=== PATIENT | male | born 1950 | race Caucasian/White ===

== ENCOUNTER 2020-12-03 08:25 | Day surgery (SDC) | payer MEDICARE, SELFPAY ==
[2020-11-27 20:29] VITALS: BMI 35.2
--- NOTE | 2020-12-02 09:45 | P.CONAN_ITS ---
Documented by User: Sugey Alvarenga 12/02/20 09:46 HPI - Anesthesia Eval Consult details Narrative: 70yo M for Colonoscopy [facility] Past Medical History Medical History (Updated 11/27/20 @ 20:34 by Chanelle Sierra RN) HTN (hypertension) Surgical History Surgical History (Updated 11/27/20 @ 20:34 by Chanelle Sierra RN) History of cataract surgery History of colonoscopy S/P repair of hydrocele Social History Social History Smoking Status: Never smoker Use of substances other than those prescribed or required for medical reasons: No Advance Directives: Yes Advance Directives Information Provided: Yes Advance Directives on File: No (will bring copy) Advance Directives Date on File: 11/15/17 Meds Allergies Allergy/AdvReac Type Severity Reaction Status Date / Time Pt states no known allergy to Allergy Unknown Uncoded 01/31/19 00:00 Home Medications Medication Instructions Recorded Confirmed Type aspirin 81 mg PO DAILY 11/27/20 11/27/20 History atenolol 50 mg PO DAILY 11/27/20 12/03/20 History cholecalciferol (vitamin D3) 25 mcg PO DAILY 11/27/20 11/27/20 History [Vitamin D3] furosemide 20 mg PO DAILY 11/27/20 11/27/20 History bklejyfcvarj-lgehbcol-ymfyhx 1 tab PO DAILY 11/27/20 11/27/20 History [Centrum Silver] omega-3 fatty acids [Fish Oil] 2,000 mg PO DAILY 11/27/20 11/27/20 History Exam Exam Date and Time: December 02, 2020 0945 Height,Weight and Vital Signs: Height 5 ft 10 in Weight 111.13 kg Assessment and Plan Assessment Anesthesia Assessment: Chart Reviewed Documented by User: Anibal Bain MD 12/03/20 09:05 [facility] Past Medical History Medical History (Updated 11/27/20 @ 20:34 by Chanelle Sierra RN) HTN (hypertension) Surgical History Surgical History (Updated 11/27/20 @ 20:34 by Chanelle Sierra RN) History of cataract surgery History of colonoscopy S/P repair of hydrocele Social History Social History Smoking Status: Never smoker Use of substances other than those prescribed or required for medical reasons: No Advance Directives: Yes Advance Directives Information Provided: Yes Advance Directives on File: No (will bring copy) Advance Directives Date on File: 11/15/17 Meds Allergies Allergy/AdvReac Type Severity Reaction Status Date / Time Pt states no known allergy to Allergy Unknown Uncoded 01/31/19 00:00 Home Medications Medication Instructions Recorded Confirmed Type aspirin 81 mg PO DAILY 11/27/20 11/27/20 History atenolol 50 mg PO DAILY 11/27/20 12/03/20 History cholecalciferol (vitamin D3) 25 mcg PO DAILY 11/27/20 11/27/20 History [Vitamin D3] furosemide 20 mg PO DAILY 11/27/20 11/27/20 History ldyckifhvefn-dslgwgzg-ybqwxe 1 tab PO DAILY 11/27/20 11/27/20 History [Centrum Silver] omega-3 fatty acids [Fish Oil] 2,000 mg PO DAILY 11/27/20 11/27/20 History Exam Airway Mallampati Class: II TM Dist: >3cm Neck ROM: Full Loose/Missing/Broken Teeth: Yes (Few missing molars, crowns, none loose) Heart: RRR Lungs: NL Other: AO Assessment and Plan Assessment Anesthesia Assessment: Anesthesia Plan Discussed and Chart Reviewed Final Anesthetic Review NPO: Yes ASA Class: II Final Preanesthetic Review: No Changes in Pt Med Stat, Meds/Allgs Chart Reviewed, Consent Obtained/Reviewed and Anes Risks/Benef Reviewed Patient Risk: Low Procedure Risk: Low Anesthetic Plan Anesthetic Plan: MAC: Disposition: Standard PACU
[2020-12-03 08:49] VITALS: BP 167/84; PULSE 66; RESP 18; TEMP 36.1; O2SAT 97
[2020-12-03] MEDS: Lactated Ringers 1,000 ML 100 ML IVCONT (08:57)
[2020-12-03 10:20] VITALS: BP 99/45; PULSE 58; RESP 16; TEMP 36.6; O2SAT 99
--- NOTE | 2020-12-03 10:21 | PM.OP ---
Brief Operative Note Date of Service: 12/03/20 Pre-op diagnosis: Screening, History of polyps Post-op diagnosis: other (Colon polyp, Diverticulosis) Procedure: Colonoscopy to cecum and TI with biopsy and removal of polyp Surgeon: Toni Pena Anesthesia: MAC Estimated blood loss (mL): 3.0 Pathology: other (A. Cecal polyp) Condition: stable Disposition: PACU
[2020-12-03 10:35] VITALS: BP 131/64; PULSE 55; RESP 16; O2SAT 97
[2020-12-03 10:43] VITALS: BP 145/77; PULSE 67; RESP 18; TEMP 36.6; O2SAT 98
--- NOTE | 2020-12-03 11:02 | HO.POSTANES ---
Post Anesthesia Evaluation Post Anesthesia Evaluation Vital Signs: Vital Signs Temp Pulse Resp BP Pulse Ox 12/03/20 10:43 97.9 F 67 18 145/77 H 98 12/03/20 10:35 55 16 131/64 97 12/03/20 10:20 97.9 F 58 16 99/45 L 99 12/03/20 08:49 97 F 66 18 167/84 H 97 Anesthesia: General (tiva) Mental Status: Awake Pain Control: Satisfactory Nausea/Vomiting: None Hydration: Adequate Anesthesia-Related Issues: No Anes. Related Issues
--- NOTE | 2020-12-03 11:14 | OP_ITS ---
SURGEON: Toni Pena MD INDICATIONS: The patient presents for evaluation of colorectal cancer screening and prior history of tubular adenoma of the colon. Full consent has been obtained from him for this, including risks of bleeding and perforation. PREOPERATIVE DIAGNOSIS: POSTOPERATIVE DIAGNOSIS: PROCEDURE PERFORMED: Colonoscopy to cecum and terminal ileum with biopsy and removal of polyp. ESTIMATED BLOOD LOSS: COMPLICATIONS: ANESTHESIA: Medication used, monitored anesthesia care. ASSISTANTS: SPECIMENS: PREOPERATIVE DIAGNOSES: Colorectal cancer screening and personal history of tubular adenoma of the colon. POSTOPERATIVE DIAGNOSES: Colorectal cancer screening and personal history of tubular adenoma of the colon, small colon polyp, diverticulosis, and internal hemorrhoids. DESCRIPTION OF PROCEDURE: The patient was placed in the left lateral decubitus position. The digital rectal exam revealed no abnormalities. The Olympus video pediatric colonoscope was entered into the rectum and advanced easily to the cecum. Once in the cecum, I did identify normal-appearing cecal pouch other than a flat approximately 3 mm polyp, which was biopsied and completely removed with cold biopsy forceps. The remainder of the cecum including the appendiceal orifice was visualized and appeared normal. The terminal ileum was cannulated and appeared normal. The scope withdrawn back in the colon. The ileocecal valve appeared normal. The scope was slowly withdrawn assessing all mucosal surfaces carefully. Preparation was excellent. I did not visualize any other polyps, colitis, nor angiodysplasia. There was a mild amount of sigmoid diverticulosis. In the rectum, scope was retroflexed visualizing internal hemorrhoids, but no other pathology. The rectal mucosa appeared normal. The scope was straightened and withdrawn from the patient. He tolerated the procedure well and was returned to the recovery area in stable condition. IMPRESSION: 1. Small colon polyp, status post biopsy removal. 2. Diverticulosis. 3. Internal hemorrhoids. PLAN: The results of the biopsy will be checked. I would recommend a repeat colonoscopy in 5 years for further screening and surveillance. MD AUTUMN Hui/KATHLEENL / [id number]
== END 2020-12-03 11:35 | disposition home or self-care (01) ==
PROVIDERS: PCP Internal Medicine; Visit Provider Internal Medicine
PROC: 0DJD8ZZ Inspection of Lower Intestinal Tract, Via Natural or Artificial Opening Endoscopic (ICD-10-PCS; CPT 45378; principal; 2020-12-03 09:40)
DX: Z12.11 Encounter for screening for malignant neoplasm of colon (principal); Z86.010 Personal history of colon polyps; D12.0 Benign neoplasm of cecum; K57.30 Diverticulosis of large intestine without perforation or abscess without bleeding; K64.8 Other hemorrhoids; I10 Essential (primary) hypertension; Z79.82 Long term (current) use of aspirin; Z79.899 Other long term (current) drug therapy
CPT/HCPCS: 45380; 88305

== ENCOUNTER 2021-01-30 08:50 | Outpatient (REF) | payer MEDICARE, SELFPAY ==
--- NOTE | ~2021-01-30 | XR_ITS ---
EXAMINATION: KNEE X-RAY CLINICAL INFORMATION: Pain COMPARISON: None TECHNIQUE: Standing AP view of both knees and lateral and sunrise view of the left knee FINDINGS: Left: Bone alignment is normal. No fracture or dislocation is seen. There is arthritis at the femoral tibial and patellofemoral joints with joint space narrowing and osteophyte formation. There is no significant joint effusion. Standing AP view of the right knee is unremarkable. XR/XR knee LT 2V IMPRESSION: Left knee: Mild arthritis. Unremarkable right knee.
--- NOTE | ~2021-01-30 | XR_ITS ---
EXAMINATION: KNEE X-RAY CLINICAL INFORMATION: Pain COMPARISON: None TECHNIQUE: Standing AP view of both knees and lateral and sunrise view of the left knee FINDINGS: Left: Bone alignment is normal. No fracture or dislocation is seen. There is arthritis at the femoral tibial and patellofemoral joints with joint space narrowing and osteophyte formation. There is no significant joint effusion. Standing AP view of the right knee is unremarkable. XR/XR knee standing BI IMPRESSION: Left knee: Mild arthritis. Unremarkable right knee.
== END 2021-01-30 08:51 | disposition home or self-care (01) ==
LOC: HO.HOSX 08:50
PROVIDERS: Visit Provider Orthopaedic Surgery
DX: M22.2X2 Patellofemoral disorders, left knee (principal); M25.561 Pain in right knee
CPT/HCPCS: 73560; 73565; 99202

== ENCOUNTER 2021-02-11 09:35 | Outpatient (REF) | payer MEDICARE, SELFPAY ==
[2021-02-11 11:09] LABS: MANUAL DIFF FLAG NO
[2021-02-11 11:27] LABS: Basophils Percent Auto 0.6 % (0-2); Eosinophils Absolute Auto 0.3 X10*3/uL (0.0-0.4); Hematocrit 46.3 % (42-52); Hemoglobin 15.9 g/dl (14.0-18.0); Imm Gran Abs Auto 0.01 X10*3/uL (0.00-0.03); Imm Gran Pct Auto 0.2 % (0.0-0.4); Lymphocytes Absolute Auto 1.3 X10*3/uL (1.2-4.9); Mean Corpuscular HGB Conc 34.3 g/dl (31.0-36.0); Mean Corpuscular Hemoglobin 32.1 pg (27.0-33.0); Mean Corpuscular Volume 93.5 fL (80-98); Mean Platelet Volume 10.5 fL (9.4-12.4); Monocytes Absolute Auto 0.6 X10*3/uL (0.1-1.2); Monocytes Percent Auto 11.1 % (2-11); Neutrophils Absolute Auto 2.9 X10*3/uL (2.0-8.3); Neutrophils Percent Auto 58.1 % (45-73); Platelet Count 216 X10*3/uL (160-400); Red Blood Count 4.95 X10*6/uL (4.60-5.80); Red Cell Distribution Width 12.6 % (11.0-16.0)
[2021-02-11 11:38] LABS: B Type Natriuretic Peptide 90 pg/mL (<100)
[2021-02-11 12:04] LABS: Alanine Aminotransferase 35 U/L (0-40); Albumin Level 4.3 g/dL (3.5-5.0); Alkaline Phosphatase 75 U/L (39-117); Anion Gap 16 (12-20); Aspartate Amino Transferase 27 U/L (5-37); Bilirubin Total 0.6 mg/dL (0.0-1.0); Blood Urea Nitrogen 19 mg/dL (9-16); Carbon Dioxide 27 mmol/L (22-29); Chloride 104 mmol/L (96-108); Cholesterol 206 mg/dL; Estimated Glomerular Filt Rate > 60; Glucose Fasting 85 mg/dL (60-99); HDL Cholesterol 41 mg/dL; LDL Cholesterol Calculated 131 mg/dl; Potassium 3.9 mmol/L (3.3-5.1); Sodium 143 mmol/L (135-145); Total Protein 6.8 g/dL (6.5-8.0); Triglycerides 170 mg/dL; Uric Acid 7.5 mg/dL (3.4-7.0)
== END 2021-02-11 09:36 | disposition home or self-care (01) ==
LOC: HO.HMGCLDS 09:35
PROVIDERS: PCP Internal Medicine; Visit Provider Internal Medicine
DX: I10 Essential (primary) hypertension (principal); E78.00 Pure hypercholesterolemia, unspecified; E66.09 Other obesity due to excess calories
CPT/HCPCS: 36415; 80053; 80061; 83880; 84550; 85025

== ENCOUNTER 2023-03-30 09:27 | Outpatient (REF) | payer MEDICARE, SELFPAY ==
[2023-03-30 11:46] LABS: MANUAL DIFF FLAG NO
[2023-03-30 11:53] LABS: Basophils Percent Auto 0.6 % (0-2); Eosinophils Absolute Auto 0.3 X10*3/uL (0.0-0.4); Hematocrit 43.2 % (42.0-52.0); Hemoglobin 14.8 g/dl (14.0-18.0); Imm Gran Abs Auto 0.02 X10*3/uL (0.00-0.03); Imm Gran Pct Auto 0.3 % (0.0-0.4); Lymphocytes Absolute Auto 1.6 X10*3/uL (1.2-4.9); Lymphocytes Percent Auto 22.4 % (20-40); Mean Corpuscular HGB Conc 34.3 g/dl (31.0-36.0); Mean Corpuscular Hemoglobin 32.5 pg (27.0-33.0); Mean Corpuscular Volume 94.7 fL (80.0-98.0); Mean Platelet Volume 10.3 fL (9.4-12.4); Monocytes Absolute Auto 0.8 X10*3/uL (0.1-1.2); Monocytes Percent Auto 11.3 % (2-11); Neutrophils Absolute Auto 4.5 x10*3/uL (2.0-8.3); Neutrophils Percent Auto 61.4 % (45-73); Platelet Count 238 X10*3/uL (160-400); Red Blood Count 4.56 X10*6/uL (4.60-5.80); Red Cell Distribution Width 12.8 % (11.0-16.0); White Blood Count 7.3 X10*3/uL (4.8-10.8)
[2023-03-30 12:49] LABS: Alanine Aminotransferase 26 U/L (0-40); Albumin Level 3.9 g/dL (3.5-5.0); Alkaline Phosphatase 70 U/L (39-117); Anion Gap 13 (12-20); Aspartate Amino Transferase 27 U/L (5-37); Bilirubin Total 0.6 mg/dL (0.0-1.0); Blood Urea Nitrogen 28 mg/dL (9-16); Calcium 9.3 mg/dL (8.4-10.2); Carbon Dioxide 29 mmol/L (22-29); Chloride 105 mmol/L (96-108); Cholesterol 194 mg/dL; Estimated Glomerular Filt Rate > 60; Glucose Fasting 88 mg/dL (60-99); HDL Cholesterol 38 mg/dL; LDL Cholesterol Calculated 128 mg/dl; Sodium 143 mmol/L (135-145); Total Protein 6.3 g/dL (6.5-8.0); Triglycerides 142 mg/dL
== END 2023-03-30 09:28 | disposition home or self-care (01) ==
LOC: HO.HMGCLDS 09:27
PROVIDERS: PCP Internal Medicine; Visit Provider Internal Medicine
DX: I10 Essential (primary) hypertension (principal); E78.00 Pure hypercholesterolemia, unspecified; E66.09 Other obesity due to excess calories
CPT/HCPCS: 36415; 80053; 80061; 85025

== ENCOUNTER 2023-09-16 08:33 | Outpatient (REF) | payer MEDICARE, SELFPAY ==
--- NOTE | ~2023-09-16 | XR_ITS ---
EXAMINATION: XR HIP, LEFT CLINICAL INFORMATION: Left hip pain COMPARISON: None available. TECHNIQUE: Two views of the left hip. FINDINGS: BONES: Bony structures are intact. A radiolucent lesion is seen in superior lateral left femoral head measuring 2.1 cm in diameter. Sclerotic changes are seen in the right pubic bone. There is no focal bone destruction or periosteal reaction seen. JOINTS: Alignment of hip joint is normal. SOFT TISSUE: Soft tissue is normal. No radiopaque foreign body or abnormal air collection is seen. XR/XR hip LT min 2V IMPRESSION: 1. 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 2. No fracture or dislocation or signs of avascular necrosis are seen. 3. Possible right-sided osteitis pubis is seen.
[2023-09-16 11:22] LABS: MANUAL DIFF FLAG NO
[2023-09-16 11:26] LABS: Basophils Percent Auto 0.4 % (0-2); Eosinophils Absolute Auto 0.3 X10*3/uL (0.0-0.4); Eosinophils Percent Auto 3.6 % (0-4); Hematocrit 45.9 % (42.0-52.0); Hemoglobin 15.7 g/dl (14.0-18.0); Imm Gran Abs Auto 0.02 X10*3/uL (0.00-0.03); Imm Gran Pct Auto 0.3 % (0.0-0.4); Lymphocytes Absolute Auto 2.2 X10*3/uL (1.2-4.9); Lymphocytes Percent Auto 29.4 % (20-40); Mean Corpuscular HGB Conc 34.2 g/dl (31.0-36.0); Mean Corpuscular Hemoglobin 31.7 pg (27.0-33.0); Mean Corpuscular Volume 92.5 fL (80.0-98.0); Monocytes Absolute Auto 0.8 X10*3/uL (0.1-1.2); Monocytes Percent Auto 10.9 % (2-11); Neutrophils Absolute Auto 4.2 x10*3/uL (2.0-8.3); Neutrophils Percent Auto 55.4 % (45-73); Platelet Count 274 X10*3/uL (160-400); Red Blood Count 4.96 X10*6/uL (4.60-5.80); Red Cell Distribution Width 13.1 % (11.0-16.0); White Blood Count 7.5 X10*3/uL (4.8-10.8)
[2023-09-16 11:58] LABS: Alanine Aminotransferase 20 U/L (0-40); Albumin Level 4.2 g/dL (3.5-5.0); Alkaline Phosphatase 75 U/L (39-117); Anion Gap 12 (12-20); Aspartate Amino Transferase 22 U/L (5-37); Bilirubin Total 0.6 mg/dL (0.0-1.0); Blood Urea Nitrogen 25 mg/dL (9-16); Calcium 9.7 mg/dL (8.4-10.2); Carbon Dioxide 31 mmol/L (22-29); Chloride 100 mmol/L (96-108); Cholesterol 206 mg/dL (<200); Estimated Glomerular Filt Rate > 60; Glucose Fasting 95 mg/dL (60-99); HDL Cholesterol 36 mg/dL (>40); LDL Cholesterol Calculated 127 mg/dL (<100); Potassium 3.2 mmol/L (3.3-5.1); Sodium 140 mmol/L (135-145); Total Protein 7.3 g/dL (6.5-8.0); Triglycerides 218 mg/dL (<150)
[2023-09-16 12:05] LABS: Thyroid Stimulating Hormone 1.82 uIU/mL (0.32-4.0); Vitamin D 25-OH Total 53.9 ng/mL (>30)
[2023-09-16 12:11] LABS: PSA,Total (Free>4and<10) 2.33 ng/mL (0.00-4.00)
== END 2023-09-16 08:34 | disposition home or self-care (01) ==
LOC: HO.HMGCX 08:33
PROVIDERS: PCP Internal Medicine; Visit Provider Internal Medicine
DX: Z00.00 Encounter for general adult medical examination without abnormal findings (principal); I10 Essential (primary) hypertension; E78.00 Pure hypercholesterolemia, unspecified; E66.09 Other obesity due to excess calories; N40.0 Benign prostatic hyperplasia without lower urinary tract symptoms; Z12.5 Encounter for screening for malignant neoplasm of prostate; M25.552 Pain in left hip; E55.9 Vitamin D deficiency, unspecified
CPT/HCPCS: 36415; 73502; 80053; 80061; 82306; 84153; 84443; 85025

== ENCOUNTER 2024-01-24 10:08 | Outpatient (REF) | payer MEDICARE, SELFPAY ==
--- NOTE | ~2024-01-24 | XR_ITS ---
EXAMINATION: XR FOOT, RIGHT CLINICAL INFORMATION: Gout COMPARISON: None available. TECHNIQUE: AP, lateral, and oblique views of the right foot. FINDINGS: * No acute fracture or dislocation. No soft tissue lesions to suggest gouty tophi. There is mild swelling surrounding the first MTP joint. No definite erosive changes. Midfoot degenerative arthritis.. * Calcaneal enthesopathy. XR/XR foot RT min 3V IMPRESSION: * No acute fracture or dislocation. No soft tissue lesions to suggest gouty tophi. * No definite erosive changes. Midfoot degenerative arthritis.. * Calcaneal enthesopathy.
[2024-01-24 13:20] LABS: MANUAL DIFF FLAG NO
[2024-01-24 13:27] LABS: Basophils Percent Auto 0.6 % (0-2); Eosinophils Absolute Auto 0.3 X10*3/uL (0.0-0.4); Eosinophils Percent Auto 3.6 % (0-4); Hematocrit 47.7 % (42.0-52.0); Hemoglobin 16.3 g/dl (14.0-18.0); Imm Gran Abs Auto 0.02 X10*3/uL (0.00-0.03); Imm Gran Pct Auto 0.3 % (0.0-0.4); Lymphocytes Absolute Auto 1.7 X10*3/uL (1.2-4.9); Lymphocytes Percent Auto 23.9 % (20-40); Mean Corpuscular HGB Conc 34.2 g/dl (31.0-36.0); Mean Corpuscular Hemoglobin 31.7 pg (27.0-33.0); Mean Corpuscular Volume 92.8 fL (80.0-98.0); Mean Platelet Volume 10.6 fL (9.4-12.4); Monocytes Absolute Auto 0.8 X10*3/uL (0.1-1.2); Neutrophils Absolute Auto 4.1 x10*3/uL (2.0-8.3); Neutrophils Percent Auto 59.6 % (45-73); Platelet Count 271 X10*3/uL (160-400); Red Blood Count 5.14 X10*6/uL (4.60-5.80); White Blood Count 6.9 X10*3/uL (4.8-10.8)
[2024-01-24 13:58] LABS: Alanine Aminotransferase 22 U/L (0-40); Albumin Level 4.3 g/dL (3.5-5.0); Alkaline Phosphatase 88 U/L (39-117); Anion Gap 15 (12-20); Aspartate Amino Transferase 22 U/L (5-37); Bilirubin Total 0.7 mg/dL (0.0-1.0); Blood Urea Nitrogen 36 mg/dL (9-16); C Reactive Protein 1.79 mg/dL (< or = 0.50); Calcium 10.4 mg/dL (8.4-10.2); Carbon Dioxide 33 mmol/L (22-29); Chloride 96 mmol/L (96-108); Estimated Glomerular Filt Rate 47; Glucose Random 92 mg/dL (60-115); Potassium 3.2 mmol/L (3.3-5.1); Sodium 141 mmol/L (135-145); Total Protein 7.5 g/dL (6.5-8.0); Uric Acid 10.9 mg/dL (3.4-7.0)
== END 2024-01-24 10:09 | disposition home or self-care (01) ==
LOC: HO.HMGCX 10:08
PROVIDERS: PCP Internal Medicine; Visit Provider Internal Medicine
DX: M10.9 Gout, unspecified (principal)
CPT/HCPCS: 36415; 73630; 80053; 84550; 85025; 86140

== ENCOUNTER 2024-03-20 11:01 | Outpatient (REF) | payer MEDICARE, SELFPAY ==
[2024-03-20 13:17] LABS: MANUAL DIFF FLAG NO
[2024-03-20 13:35] LABS: Basophils Percent Auto 0.3 % (0-2); Eosinophils Absolute Auto 0.2 X10*3/uL (0.0-0.4); Eosinophils Percent Auto 3.7 % (0-4); Hematocrit 46.7 % (42.0-52.0); Imm Gran Abs Auto 0.03 X10*3/uL (0.00-0.03); Imm Gran Pct Auto 0.5 % (0.0-0.4); Lymphocytes Absolute Auto 1.6 X10*3/uL (1.2-4.9); Lymphocytes Percent Auto 26.5 % (20-40); Mean Corpuscular HGB Conc 34.3 g/dl (31.0-36.0); Mean Corpuscular Volume 93.4 fL (80.0-98.0); Mean Platelet Volume 10.3 fL (9.4-12.4); Monocytes Absolute Auto 0.7 X10*3/uL (0.1-1.2); Neutrophils Absolute Auto 3.4 x10*3/uL (2.0-8.3); Platelet Count 251 X10*3/uL (160-400); Red Cell Distribution Width 13.2 % (11.0-16.0); White Blood Count 5.9 X10*3/uL (4.8-10.8)
[2024-03-20 14:09] LABS: Alanine Aminotransferase 25 U/L (0-40); Albumin Level 4.2 g/dL (3.5-5.0); Alkaline Phosphatase 79 U/L (39-117); Anion Gap 15 (12-20); Aspartate Amino Transferase 23 U/L (5-37); Bilirubin Total 0.6 mg/dL (0.0-1.0); Blood Urea Nitrogen 23 mg/dL (9-16); C Reactive Protein 0.21 mg/dL (< or = 0.50); Calcium 9.9 mg/dL (8.4-10.2); Carbon Dioxide 27 mmol/L (22-29); Chloride 104 mmol/L (96-108); Estimated Glomerular Filt Rate > 60; Glucose Random 89 mg/dL (60-115); Potassium 3.5 mmol/L (3.3-5.1); Sodium 142 mmol/L (135-145); Total Protein 7.2 g/dL (6.5-8.0); Uric Acid 7.5 mg/dL (3.4-7.0)
== END 2024-03-20 11:02 | disposition home or self-care (01) ==
LOC: HO.HMGCLDS 11:01
PROVIDERS: PCP Internal Medicine; Visit Provider Internal Medicine
DX: I10 Essential (primary) hypertension (principal); M10.9 Gout, unspecified; E66.09 Other obesity due to excess calories
CPT/HCPCS: 36415; 80053; 84550; 85025; 86140

== ENCOUNTER 2024-10-18 11:28 | Outpatient (REF) | payer MEDICARE, SELFPAY ==
[2024-10-18 13:13] LABS: Anion Gap 12 (12-20); Blood Urea Nitrogen 19 mg/dL (9-16); Calcium 9.3 mg/dL (8.4-10.2); Carbon Dioxide 30 mmol/L (22-29); Chloride 106 mmol/L (96-108); Estimated Glomerular Filt Rate > 60; Glucose Random 112 mg/dL (60-115); Potassium 3.9 mmol/L (3.3-5.1); Sodium 144 mmol/L (135-145); Uric Acid 8.1 mg/dL (3.4-7.0)
== END 2024-10-18 11:29 | disposition home or self-care (01) ==
LOC: HO.HMGCLDS 11:28
PROVIDERS: PCP Internal Medicine; Visit Provider Internal Medicine
DX: I10 Essential (primary) hypertension (principal); M10.9 Gout, unspecified
CPT/HCPCS: 36415; 80048; 84550

== ENCOUNTER 2025-01-02 14:57 | Outpatient (AMB) | payer MEDICARE, SELFPAY ==
--- OUTSIDE RECORDS SUMMARY | 2025-01-02 15:00 | XMS_ITS | Patient Health Record ---
Author Organization Holland Romero MD Address [address] [place], [place] [id number] Care Team Providers Care Invoice Machine Operator Name Role Phone Toni Piedra DO Primary Care Provider Unavail able Holland Romero Unavailable [phone] Reason For Referral No Information Plan Of Treatment No Information Insurance Providers Payer Name Payer Address Payer Phone Subscriber Number Group Number Insured Name Patient Relationship to Insured Coverage Start Date Coverage End Date [employer] [address] [place], [place] [phone] [id number] Pedro Kapoor Self - patient is the insured
--- OUTSIDE RECORDS SUMMARY | 2025-01-02 15:00 | XMS_ITS ---
Author Organization Toni Piedra DO, FACP Address [address] [facility] [place] [id number] Care Team Providers Care Carriage Dogger Name Role Phone DorotheaToni Primary Care Provider ALLERGIES Allergen (clinical drug ingredient) Drug/Non Drug Allergy documented on EMR Reaction Allergy Type Onset Date Status hydrochlorothiazide Hydrochlorothiazide rise in uric acid level Drug Allergy Active REASON FOR VISIT 4 month f/u, Follow up hypertension MEDICATIONS Medication SIG (Take, Route, Frequency, Duration) Notes Start Date End Date Status Furosemide 40 MG 2 tablets Orally Onc e a day Active Losartan Potassium 100 MG 1 tablet Orally Once a day Active Fish Oil 1200 MG 1 capsule Orally Onc e a day Active Aspirin 81 MG 1 tablet Orally Once a day Active Atenolol 50 MG 1.5 tablet Orally On ce a day Active Colchicine 0.6 MG 1 tablet as needed O rally Once a day 01/24/2024 Active Diclofenac Sodium 75 MG 1 tablet as need ed Orally Twice a day Active Centrum Silver 1 tablet Orally Once a day Active Vitamin D 1000 UNIT 1 capsule Orally Onc e a day Active SOCIAL HISTORY Tobacco Use: Social History Observation Description Date Details (start date - stop date) Never Smoker NA - NA Sex Assigned At : Social History Observation Description Sex Assigned At Unknown Tobacco Use/Smoking Question Answer Notes Patient is a nonsmoker Additional Findings: Tobacco Non-User Cu rrent non-smoker, currently using no form of tobacco Alcohol Screen Question Answer Notes Did you have a drink contain ing alcohol in the past year? Yes How often did you have a dri nk containing alcohol in the past year? 2 to 3 times a week (3 points) How many drinks did you have on a typical day when you were drinking in the past year? 1 or 2 drinks (0 point) How often did you have 6 or more drinks on one occasion in the past year? Never (0 point) Points 3 Interpretation Negative VITAL SIGNS BMI 38.85 kg/m2 08/21/2024 Blood pressure systolic 162 mm Hg 08/21/20 24 Blood pressure diastolic 86 mm Hg 024 Height 69.25 in 08/21/2024 Weight 265 lbs 08/21/2024 Encounters Encounter Location Date Provider Diagnosis Toni Piedra DO, [address] [phone] 08/21/2024 Toni Piedra Essential hypertensi on I10 ; Hypercholesterolemia E78.00 ; Non morbid obesity due to excess calories E66.09 and Acute gout of right foot, unspecified cause M10.9 ASSESSMENTS Encounter Date Diagnosis Assessment Notes Treatment Notes Treatment Clinical Notes 08/21/2024 Essential hypertensi on (ICD-10 - I10) 08/21/2024 Hypercholesterolemia (ICD-10 - E78.00) 08/21/2024 Non morbid obesity d ue to excess calories (ICD-10 - E66.09) 08/21/2024 Acute gout of right foot, unspecified cause (ICD-10 - M10.9) PLAN OF TREATMENT Medication Medication Name Sig Start Date Stop Date Notes Furosemide 40 MG 2 tablets Orally Once a day Losartan Potassium 100 MG 1 tablet Orally Once a day Fish Oil 1200 MG 1 capsule Orally Once a day Aspirin 81 MG 1 tablet Orally Once a day Atenolol 50 MG 1.5 tablet Orally Once a day Colchicine 0.6 MG 1 tablet as needed O rally Once a day 01/24/2024 Diclofenac Sodium 75 MG 1 tablet as need ed Orally Twice a day Centrum Silver 1 tablet Orally Once a day Vitamin D 1000 UNIT 1 capsule Orally Once a day Next Appt Details Follow Up: 2 Months, Reason: follow up visit Progress Notes * Examination Category Sub-Category Detail Notes General Examination GENERAL APPEARANCE: in no ac [place] distress, well developed, well nourished HEAD: normocephalic, atrau matic HEART: no murmurs, regular rate and rhythm, S1, S2 normal LUNGS: clear to auscultatio n bilaterally ABDOMEN: normal, bowel sounds present, soft, nontender, nondistended SKIN: warm and dry EXTREMITIES: 2+ pitting edema low er extremities PSYCH: alert, oriented, cog nitive function intact
--- OUTSIDE RECORDS SUMMARY | 2025-01-02 15:00 | XMS_ITS ---
Author Organization Toni Piedra DO, FACP Address [address] [facility] [place] [id number] Care Team Providers Care Train Examiner Name Role Phone Dorothea Toni Primary Care Provider ALLERGIES Allergen (clinical drug ingredient) Drug/Non Drug Allergy documented on EMR Reaction Allergy Type Onset Date Status hydrochlorothiazide Hydrochlorothiazide rise in uric acid level Drug Allergy Active REASON FOR VISIT 2 month f/u, Follow up Acute gout of right foot, unspecified cause, hypertension MEDICATIONS Medication SIG (Take, Route, Frequency, Duration) Notes Start Date End Date Status Vitamin D 1000 UNIT 1 capsule Orally Onc e a day Active Centrum Silver 1 tablet Orally Once a day Active Allopurinol 300 MG 1 tablet Orally Once a day for 90 days 10/23/2024 Active Diclofenac Sodium 75 MG 1 tablet as need ed Orally Twice a day Active Colchicine 0.6 MG 1 tablet as needed O rally Once a day for 90 days 01/24/2024 Active Losartan Potassium 100 MG 1 tablet Orally Once a day Active Furosemide 40 MG 2 tablets Orally Onc e a day Active Fish Oil 1200 MG 1 capsule Orally Onc e a day Active Atenolol 50 MG 1.5 tablet Orally On ce a day Active Aspirin 81 MG 1 tablet Orally Once a day Active SOCIAL HISTORY Tobacco Use: [...] Points 3 Interpretation Negative VITAL SIGNS BMI 39.14 kg/m2 10/23/2024 Blood pressure systolic 122 mm Hg 10/23/20 24 Blood pressure diastolic 74 mm Hg 024 Height 69.25 in 10/23/2024 Weight 267 lbs 10/23/2024 Encounters Encounter Location Date Provider Diagnosis Toni Piedra DO, [address] [phone] 10/23/2024 Toni Piedra Essential hypertensi on I10 ; Hypercholesterolemia E78.00 ; Acute gout of right foot, unspecified cause M10.9 and Non morbid obesity due to excess calories E66.09 ASSESSMENTS Encounter Date Diagnosis Assessment Notes Treatment Notes Treatment Clinical Notes 10/23/2024 Essential hypertensi on (ICD-10 - I10) 10/23/2024 Hypercholesterolemia (ICD-10 - E78.00) 10/23/2024 Acute gout of right foot, unspecified cause (ICD-10 - M10.9) 10/23/2024 Non morbid obesity d ue to excess calories (ICD-10 - E66.09) PLAN OF TREATMENT Medication Medication Name Sig Start Date Stop Date Notes Vitamin D 1000 UNIT 1 capsule Orally Once a day Centrum Silver 1 tablet Orally Once a day Allopurinol 300 MG 1 tablet Orally Once a day for 90 days 10/23/2024 Diclofenac Sodium 75 MG 1 tablet as need ed Orally Twice a day Colchicine 0.6 MG 1 tablet as needed O rally Once a day for 90 days 01/24/2024 Losartan Potassium 100 MG 1 tablet Orally Once a day Furosemide 40 MG 2 tablets Orally Once a day Fish Oil 1200 MG 1 capsule Orally Once a day Atenolol 50 MG 1.5 tablet Orally Once a day Aspirin 81 MG 1 tablet Orally Once a day Next Appt Details Follow Up: 3 Months, Reason: follow up visit Progress Notes * Examination Category Sub-Category Detail Notes General Examination GENERAL APPEARANCE: in no ac [place] distress, well developed, well nourished HEAD: normocephalic, atrau matic HEART: no murmurs, regular rate and rhythm, S1, S2 normal LUNGS: clear to auscultatio n bilaterally ABDOMEN: normal, bowel sounds present, soft, nontender, nondistended SKIN: warm and dry EXTREMITIES: trace edema lower ex tremities PSYCH: alert, oriented, cog nitive function intact
--- OUTSIDE RECORDS SUMMARY | 2025-01-02 15:00 | XMS_ITS | Patient Health Record ---
Author Organization [facility] Address [address] [place] [address] Care Team Providers Care Amusement Centre Manager Name Role Phone Dorothea (RETIRED) Toni MCCLAIN Primary Care Provid er Unavailable Toni Pena Unavailable [phone] REASON FOR REFERRAL No Information MEDICATIONS Medication SIG (Take, Route, Fr equency, Duration) Notes Start Date End Date Status Atenolol 50 MG 1 tablet Orally Once a day Active Furosemide 20 MG 1 tablet Orally Once a day Active Aspirin 81 Active Vitamin D 1000 UNIT 1 tablet Orally Once a day Active Fish Oil 2000 1 capsule Orally Once a day Active Centrum Silver Orally Activ e IMMUNIZATIONS Vaccine Route Administration Date Status Comme nts Influenza Unknown 08/14/2020 Administered SOCIAL HISTORY Sex Assigned At : Social History Observation Description Sex Assigned At Unknown PROBLEMS Problem Type ICD Code Onset Dates Problem Status W/U Status Risk SNOMED Code Notes Problem Encounter for screening for malignant neoplasm of colon (Z12.11) Active confirmed Screening for malignant neoplasm of colon (872987674) Problem History of adenomatous polyp of colon (Z86.010) Active confirmed History of adenomatous polyp of colon (175332464) Problem Preprocedural examination (Z01.818) Active confirmed Preprocedural examination (044589886454248 ) PLAN OF TREATMENT Pending Test Test Name Order Date Pathology 12/03/2020 Future Test Test Name Order Date COLONOSCOPY 12/03/2014 COLONOSCOPY 10/23/2020 Insurance Providers Payer Name Payer Address Payer Phone Subscriber Number Group Number Insured Name Patient Relationship to Insured Coverage Start Date Coverage End Date [facility] [employer] [address] [place] [address] [id number] TG SANCHEZ Self - patient is the insured MEDICAL (GENERAL) HISTORY Medical History History ICD Code Negative colonoscopy in 199702/26/2009 Colonoscopy--2 small tubular adenomas Hypertension Denies [place],DM,CVA,Lung disease,renal dise ase Colonoscopy in 10/2015 with small tubula r adenomas removed Surgical History Surgery Date(Month/Year) Prostate surgery--TUNA procedure Vasectomy Hydrocele on the left Cataracts with IOL's
--- OUTSIDE RECORDS SUMMARY | 2025-01-02 15:00 | XMS_ITS ---
Author Organization Holland Romero MD Address [address] [place] [phone] Care Team Providers Care Wool Hat Forming Machine Tender Name Role Phone Toni Piedra DO Primary Care Provider Unavail Holland Parrish Unavailable [phone] REASON FOR VISIT right foot pain Encounters Encounter Location Date Provider Diagnosis Holland Romero MD [address] [place] [phone] 01/20/2024 Holland Romero Plan Of Treatment No Information Progress Notes * Pedro SANCHEZDOB: 0 (74 yo M)Acc No.[id number]:01/20/2024 Progress Notes Patient:?EMELIA Pedro Provider:?Holland Romero MD :1950???Age:73 Y???Sex:Male Kevin e:01/20/2024 Address:[address] [id number] Pcp:Toni Piedra DO Subjective: * Chief Complaints: * ???1. Right foot pain. * Medical History:? Objective: * Vitals:? Assessment: Plan: * Treatment: * * The named appointment provid er may or may not be the originator of this progress note, and it is not deemed complete until electronically signed by the appointment provider. Sign off status: Pending * Provider:?Holland Romero MD Date:?0 01/20/2024 Generated for Anna Marie marshall/Vanita/eTalensmitting on:?01/02/2025 03:00 PM EST
--- OUTSIDE RECORDS SUMMARY | 2025-01-02 15:00 | XMS_ITS | Data Portability ---
Author Organization [facility], [facility] Address [address] [place] [address] Assessment No assessment recorded. Plan of Treatment Reminders Order Date Submit Date Provider Last Modified By Organization Details Last Modified Time Details Appointments None record ed. Lab None record ed. Referral None record ed. Procedures None record ed. Surgeries None record ed. Imaging None record ed. Medication Orders None record ed. Patient TargetsNo targets recorded. Patient InstructionsNo instructions recorded. Reason for Referral None Reported. 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 Medical Equipment None Reported. Vitals None Recorded Social History None recorded. Functional Status None recorded. Mental Status None recorded. Family History Nothing Reported. Medical History No medical history recorded. Past Encounters Encounter ID Performer Location Encounter Start Date Encounter Closed Date Diagnosis/Indication Diagnosis SNOMED-CT Code Diagnosis ICD10 Code Diagnosis Note [id number] Physical Therapy, [address] [phone] 01/10/2004 10:03:07 01/10/2004 11:08:34 [id number] Physical Therapy, [address] [address] 01/20/2004 14:36:52 01/20/2004 16:31:43 Health Concerns Section Related Observation LastModified by Organization Detai ls LastModified Time None Recorded Concern Status LastModified by Organization Details LastModified Time None Recorded Advance Directives Directive None Recorded Payers Encounter Date Sequence Insurance Name Policy Number Policy Andersen Covered Member ID Andersen Member ID Guarantor Name 01/10/2004 1 [facility]: NETWORK [employer]UE - [facility] [place] [id number] Jazmin Kapoor [id number] Pedro Kapoor 01/20/2004 1 [facility]: [facility] [place] [id number] Jazmin Kapoor [id number] Pedro Kapoor
--- NOTE | 2025-01-02 15:01 | A.OFFPC_ITS ---
Vital Signs 01/02/25 15:11 Height 5 ft 8 in Weight 267 lb BMI 40.6 BP 130/78 Blood Pressure Location Rt brachial Pulse 75 Pulse Source Pulse Oximeter Temp 97.5 F Intake Visit Reasons: nodule, left eyelid Intake Note: no other issues he did say he was in the ER at [facility] less than a week ago he thought he was having a heart attack he said all the tests came back negative. Allergies No Known Allergies Allergy (Verified 01/02/25 17:08) Medication List - Last Reconciled 01/02/25 by Ghada Zarate PA-C allopurinol 300 mg PO DAILY aspirin 81 mg PO DAILY atenolol 75 mg PO DAILY cephalexin 500 mg PO Q6H 7 days cholecalciferol (vitamin D3) (Vitamin D3) 25 mcg PO DAILY colchicine 0.6 mg PO DAILY diclofenac sodium 75 mg PO BID furosemide 80 mg PO DAILY losartan 100 mg PO DAILY otnnpnjuhfkm-rhbvtwgb-ildduy 1 tab PO DAILY omega-3 fatty acids 2,000 mg PO DAILY [facility] Medical History (Updated 01/02/25 @ 17:12 by Ghada Zarate PA-C) Morbid obesity with BMI of 40.0-44.9, adult Abscess, eyebrow Gout Tubular adenoma Chronic low back pain Osteochondritis Osteoarthritis BPH (benign prostatic hyperplasia) Mild hypercholesterolemia HTN (hypertension) Surgical History History of colonoscopy (~12/03/20) S/P repair of hydrocele History of cataract surgery Social History Alcohol intake: current Alcohol intake frequency: holidays/special occasions only Advance Directives Date on File: 11/15/17 Current occupational status: employed 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 Physical exam (Primary Care) Vital Signs: Last Vital Signs Temp 97.5 F 01/02/25 15:11 Pulse 75 01/02/25 15:11 BP 130/78 01/02/25 15:11 Care Plan Goal for BP management: 130/80 at goal today BMI result Body Mass Index 40.6 BMI Assessment/Plan discussion: High BMI High, discussed plan: lifestyle, weight reduction, dietary, physical activity and alcohol moderation Office Procedures Incision and Drainage Details: Left upper eyebrow/left eyelid Incision and drainage performed by: Ghada Zarate Informed consent given: Yes Consent signed: Yes (Verbal consent was given by patient) Time out checklist: patient Time out staff in room: Yes Time out verified: Yes Time out date: 01/02/25 Location: Left eyelid/eyebrow Anesthesia: local (Lidocaine 1%) Incision with: #11 blade Drainage quality: purulent and bloody Probed cavity: Yes Culture taken: No Lesion: fluctuance Lesion size (cm): 1 Hemostasis: pressure Cavity management: irrigated and drain Dressing: gauze Patient tolerated procedure: well Complications: No Coding Level of Care Code New Pt Level 5 (13186) Complex EM visit Add On G2211 Diagnoses Mild hypercholesterolemia E78.00 HTN (hypertension) I10 Gout M10.9 Tubular adenoma D36.9 Chronic low back pain M54.50; G89.29 Osteochondritis M93.90 Osteoarthritis M19.90 BPH (benign prostatic hyperplasia) N40.0 Abscess, eyebrow L02.01 Morbid obesity with BMI of 40.0-44.9, adult E66.01; Z68.41 Assessment & Plan Assessment & Plan (1) Mild hypercholesterolemia: Code(s): E78.00 - Pure hypercholesterolemia, unspecified Category: Medical Plan: Patient to continue [place] 3 fatty acids. Last LDL was obtained on 09/16/2023 which revealed 127. We would like this under 100. Will reassess at next labs that I ordered today. Condition is chronic and stable continue to monitor. (2) HTN (hypertension): Code(s): I10 - Essential (primary) hypertension Category: Medical Plan: Blood pressure at a normal range today at 130/80. Patient currently on atenolol 75 mg daily, furosemide 80 mg daily, losartan 100 mg daily. Condition is chronic and stable continue to monitor. (3) Gout: Code(s): M10.9 - Gout, unspecified Category: Medical Plan: Patient on on allopurinol 300 mg daily. Condition is chronic and stable continue to monitor. (4) Tubular adenoma: Code(s): D36.9 - Benign neoplasm, unspecified site Category: Medical Plan: Patient has regular colonoscopies last colonoscopy was in 2020. Patient being followed by GI. Condition is chronic and stable continue to monitor. (5) Chronic low back pain: Code(s): M54.50 - Low back pain, unspecified; G89.29 - Other chronic pain Category: Medical Plan: Patient has diclofenac 75 mg b.i.d.. Condition is chronic and stable continue to monitor. (6) Osteochondritis: Code(s): M93.90 - Osteochondropathy, unspecified of unspecified site Category: Medical Plan: Patient has diclofenac 75 mg b.i.d.. Condition is chronic and stable continue to monitor. (7) Osteoarthritis: Code(s): M19.90 - Unspecified osteoarthritis, unspecified site Category: Medical Plan: Patient has diclofenac 75 mg b.i.d.. Condition is chronic and stable continue to monitor. (8) BPH (benign prostatic hyperplasia): Code(s): N40.0 - Benign prostatic hyperplasia without lower urinary tract symptoms Category: Medical Plan: Condition is chronic and stable continue to monitor. (9) Abscess, eyebrow: Code(s): L02.01 - Cutaneous abscess of face Category: Medical Plan: Patient is now status post incision and drainage of left eyelid/eyebrow abscess. No surrounding cellulitis although will start on Keflex 500 mg q.i.d. for 7 days. Condition is stable. Patient tolerated procedure well no complications. Will continue to monitor. (10) Morbid obesity with BMI of 40.0-44.9, adult: Code(s): E66.01 - Morbid (severe) obesity due to excess calories; Z68.41 - Body mass index [BMI] 40.0-44.9, adult Category: Medical Plan: Condition is chronic and stable continue to monitor. Plan Plan - patient now status post incision and drainage of left eyelid abscess. Patient tolerated procedure well. No complications. - Prescribe prophylactic antibiotic due to minor procedure on the eyelid. - Continuation of current regimen for hypertension, hyperlipidemia, benign prostatic hyperplasia, osteoarthritis, and gout. - Review of medications to ensure no incorrect reports, specifically clarifying that the patient is not on Xarelto. - Lab tests should be completed before the next appointment. Tests include CBC, CMP, lipid panel, PSA, thyroid function test, vitamin levels, inflammatory markers. - Referral made for follow-up with cardiology, including planned stress testing. Orders: Orders Complete Blood Count Auto Diff Today Z00.00 - Encounter for general adult m edical examination without abnormal findings TSH reflex Free T4 Today Z00.00 - Encounter for general adult medical examination without abnormal findings Vitamin B12 and Folate Today Z. - Encounter for general adult medical examination without abnormal findings Vitamin B1 Today Z - Encounter for general adult medical examination without abnormal findings PSA,Total (Free>4and<10) Today Z. - Encounter for general adult medical examination without abnormal findings Comprehensive [place]. Panel Fast Today Z. - Encounter for general adult medical examination without abnormal findings C Reactive Protein Today Z. - Encounter for general adult medical examination without abnormal findings Hemoglobin A1c Today Z. - Encounter for general adult medical examination without abnormal findings Lipid Panel Today Z. - Encounter for general adult medical examination without abnormal findings Liver Panel Today Z. - Encounter for general adult medical examination without abnormal findings Magnesium Today Z. - Encounter for general adult medical examination without abnormal findings Vitamin D 25-OH Total Today Z. - Encounter for general adult medical examination without abnormal findings B Type Natriuretic Peptide Today R60.0 - Localized edema Medications: New cephalexin 500 mg PO Q6H 7 days 28 caps 0RF Patient Instructions: Patient Instructions - Monitor the eyelid lesion for any increase in size or signs of infection such as redness, warmth, or pus. - patient will be prescribed Keflex 500 mg q.i.d. for 7 days for left eyebrow abscess that was I and D's. - Apply warm compresses to the eyelid to potentially soften the lesion. - Follow up with an bench assembler operator as instructed for possible excision. - Continue taking current medications as prescribed. - Complete lab work before the next visit. - Attend follow-up appointments with the cruller maker machine and primary care provider as scheduled. - Report any new symptoms, especially related to chest pain or changes in vision, immediately. - Maintain a healthy lifestyle, including moderate activity and balanced diet, to manage chronic conditions like hypertension and hyperlipidemia. Scribe Plan - Not visible on output: History of Present Illness The patient is a 74-year-old male presenting with a cyst or bump on the eyelid. The patient noticed this bump approximately two weeks ago. It is described as a small fatty lesion on the eyelid, which might be a lipoma or cyst. It has been slightly increasing in size but does not seem to be infected. The patient noticed a bit of discomfort when pressure was applied to the area. Treatment to date has included observation, and the patient expressed interest in potential excision if necessary. The consultation included examination and discussion regarding potential infection or eye involvement, and a decision to excise was made. 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 - No other social determinants discussed in detail. Review of Systems - Cardiovascular: Reports previous chest pain associated with a recent emergency room visit. - Musculoskeletal: Reports chronic knee pain and occasional low back pain. - Gastrointestinal: Reports a trial of medication for possible acid reflux following previous chest pain. - Other systems: Denies any other bearing symptoms or complications beyond listed issues. Physical Exam Appearance: Alert. Oriented X3. No acute distress. Head: Normal external exam. Normocephalic. Atraumatic. Eyes: Pupils are equal, round, and reactive to light. Extraocular movements intact. Conjunctiva and sclera normal. Eyelids normal. Noted a abscess on the eyelid, slightly tender with a little bit of blood and pus expressed upon examination. Ears: External auditory canal normal. Tympanic membranes normal. Throat: Pharynx normal. Uvula midline. Moist mucous membranes. Neck: Normal inspection. Neck supple. Full range of motion. No adenopathy. Thyroid Normal. No meningeal signs. No neck mass noted. Cardiovascular: Normal heart rate and rhythm. Heart sound normal. No murmurs noted. Pulses normal throughout. Respiratory: No respiratory distress. Painless inspiration. Breath sounds normal. No wheezes/rales/rhonchi noted. Chest nontender. No accessory muscle usage noted or decreased air movement noted. Abdomen: Soft and nontender. Bowel sounds normal in all 4 quadrants. No distention noted. No organomegaly noted. No visible injury noted. Back: No costovertebral angle tenderness. Full range of motion noted. Skin: Skin warm and dry. Normal skin color. Normal skin turgor. No rashes/lesi ons/lacerations noted. Extremities: No lower extremity edema. Extremities exhibit normal range of motion. Extremities nontender. Slight swelling noted in legs. Neuro: Oriented X 3. No motor deficit. No sensory deficit. Reflexes normal. Results - Labs: Historical lab reports show slightly elevated uric acid. - Imaging/Tests: Recent CAT scan and EKG during an ER visit indicated no heart damage. Prior cardiac evaluations included an abnormal myocardial perfusion stress test in 2022. - Diagnostic: December 2024 liver enzyme tests were normal, magnesium levels were also noted as normal, and troponin tests were negative. Other tests were discussed but not detailed in this encounter. Plan - patient now status post incision and drainage of left eyelid abscess. Patient tolerated procedure well. No complications. - Prescribe prophylactic antibiotic due to minor procedure on the eyelid. - Continuation of current regimen for hypertension, hyperlipidemia, benign prostatic hyperplasia, osteoarthritis, and gout. - Review of medications to ensure no incorrect reports, specifically clarifying that the patient is not on Xarelto. - Lab tests should be completed before the next appointment. Tests include CBC, CMP, lipid panel, PSA, thyroid function test, vitamin levels, inflammatory markers. - Referral made for follow-up with cardiology, including planned stress testing. Patient was informed and verbally consented to the use of an ambient scribe for clinic note documentation during this visit. Discussion Notes During today's consultation, I explained the potential causes of the eyelid bump, identifying the abscess. Risks and benefits of excision were discussed, such as potential for infection versus the benefit of removal for comfort. The need for prophylactic antibiotics was reviewed. I addressed concerns regarding potential eye involvement and confirmed that as of current examination, the lesion is isolated. We discussed the patient?s prior chest pain episode, recapping the ER diagnosis of non-cardiac origin, likely due to acid reflux, and emphasized adherence to recommended follow-ups with cardiology as symptoms evolve. I confirmed the current medication regimen, planned office lab works, and the absence of new symptoms or notable changes since the ER visit. I advised against self-medication or drainage efforts to prevent complications and reiterated scheduled follow-ups. Patient Instructions - Monitor the eyelid lesion for any increase in size or signs of infection such as redness, warmth, or pus. - patient will be prescribed Keflex 500 mg q.i.d. for 7 days for left eyebrow abscess that was I and D's. - Apply warm compresses to the eyelid to potentially soften the lesion. - Follow up with an bench assembler operator as instructed for possible excision. - Continue taking current medications as prescribed. - Complete lab work before the next visit. - Attend follow-up appointments with the cruller maker machine and primary care provider as scheduled. - Report any new symptoms, especially related to chest pain or changes in vision, immediately. - Maintain a healthy lifestyle, including moderate activity and balanced diet, to manage chronic conditions like hypertension and hyperlipidemia.
[2025-01-02 15:11] VITALS: BP 130/78; PULSE 75; TEMP 36.4; BMI 40.6
== END 2025-01-02 16:07 | disposition home or self-care (01) ==
LOC: HO.HMCSH 14:57
PROVIDERS: PCP Internal Medicine; Visit Provider Physician Assistant Medical
DX: E78.00 Pure hypercholesterolemia, unspecified (principal); Z68.41 Body mass index [BMI] 40.0-44.9, adult; E66.01 Morbid (severe) obesity due to excess calories; I10 Essential (primary) hypertension; M10.9 Gout, unspecified; D36.9 Benign neoplasm, unspecified site; M54.50 Low back pain, unspecified; G89.29 Other chronic pain; M93.90 Osteochondropathy, unspecified of unspecified site; M19.90 Unspecified osteoarthritis, unspecified site; N40.0 Benign prostatic hyperplasia without lower urinary tract symptoms; L02.01 Cutaneous abscess of face

== ENCOUNTER → 2025-01-02 14:57 | Outpatient (BNVA) | payer MEDICARE, SELFPAY | PROVIDERS: PCP Internal Medicine; Visit Provider Physician Assistant Medical | DX: L02.01 Cutaneous abscess of face (principal); E78.00 Pure hypercholesterolemia, unspecified; I10 Essential (primary) hypertension; M10.9 Gout, unspecified; D36.9 Benign neoplasm, unspecified site; M54.50 Low back pain, unspecified; G89.29 Other chronic pain; M93.90 Osteochondropathy, unspecified of unspecified site; M19.90 Unspecified osteoarthritis, unspecified site; N40.0 Benign prostatic hyperplasia without lower urinary tract symptoms; E66.01 Morbid (severe) obesity due to excess calories; Z68.41 Body mass index [BMI] 40.0-44.9, adult | CPT/HCPCS: 10060; 99212 ==

== ENCOUNTER 2025-01-11 11:14 | Outpatient (REF) | payer MEDICARE, SELFPAY ==
--- OUTSIDE RECORDS SUMMARY | 2025-01-11 13:16 | XMS_ITS ---
Author Organization Holland Romero MD Address [address] [place] [phone] Care Team Providers Care Ethnic Studies Professor Name Role Phone Toni Piedra DO Primary Care Provider Unavail Holland Parrish Unavailable [phone] REASON FOR VISIT right foot pain Encounters Encounter Location Date Provider Diagnosis Holland Romero MD [address] [place] [phone] 01/20/2024 Holland Romero Plan Of Treatment No Information Progress Notes * Pedro SANCHEZDOB: 0 (74 yo M)Acc No.[id number]:01/20/2024 Progress Notes Patient:?EMELIA Pedro Provider:?Holland Romero MD :1950???Age:73 Y???Sex:Male Kevin e:01/20/2024 Address:[address] [id number] Pcp:Toni Piedra DO Subjective: * Chief Complaints: [...] Date:?0 01/20/2024 Generated for Anna Marie marshall/Vanita/eTalensmitting on:?01/11/2025 01:16 PM EST
--- OUTSIDE RECORDS SUMMARY | 2025-01-11 13:16 | XMS_ITS ---
Author Organization Toni Piedra DO, FACP Address [address] [facility] [place] [id number] Care Team Providers Care Maths Tutor Name Role Phone DorotheaToni Primary Care Provider [...] Location Date Provider Diagnosis Toni Piedra DO, [address] [phone] 08/21/2024 Toni Piedra Essential hypertensi on I10 [...] General Examination GENERAL APPEARANCE: in no ac [place] distress, well developed, well nourished HEAD: normocephalic, atrau matic HEART: no murmurs, regular rate and rhythm, S1, S2 normal LUNGS: clear to auscultatio n bilaterally ABDOMEN: normal, bowel sounds present, soft, nontender, nondistended SKIN: warm and dry EXTREMITIES: 2+ pitting edema low er extremities PSYCH: alert, oriented, cog nitive function intact
--- OUTSIDE RECORDS SUMMARY | 2025-01-11 13:16 | XMS_ITS | Patient Health Record ---
Author Organization Holland Romero MD Address [address] [place], [place] [phone] Care Team Providers Care Supervisor Jewelry Department Name Role Phone Toni Piedra DO Primary Care Provider Unavail able Holland Romero Unavailable [phone] Reason For Referral No Information Plan Of Treatment No Information Insurance Providers Payer Name Payer Address Payer Phone Subscriber Number Group Number Insured Name Patient Relationship to Insured Coverage Start Date Coverage End Date [employer] [address] [place], [place] [id number] Pedro Kapoor Self - patient is the insured
--- OUTSIDE RECORDS SUMMARY | 2025-01-11 13:16 | XMS_ITS | Patient Health Record ---
Author Organization [facility] Address [address] [place] [address] Care Team Providers Care Sql Ssrs Developer Name Role Phone Dorothea (RETIRED) Toni MCCLAIN Primary Care Provid er Unavailable Toni Pena Unavailable [phone] REASON FOR REFERRAL No Information MEDICATIONS Medication [...] confirmed Screening for malignant neoplasm of colon (213329490) Problem History of adenomatous polyp of colon (Z86.010) Active confirmed History of adenomatous polyp of colon (362195015) Problem Preprocedural examination (Z01.818) Active confirmed Preprocedural examination ([id number] ) PLAN OF TREATMENT Pending Test Test Name Order Date Pathology 12/03/2020 Future Test Test Name Order Date COLONOSCOPY 12/03/2014 COLONOSCOPY 10/23/2020 Insurance Providers Payer Name Payer Address Payer Phone Subscriber Number Group Number Insured Name Patient Relationship to Insured Coverage Start Date Coverage End Date [facility] BLUE [employer]AL CLAIMS [address] [place] [address] [id number] TG SANCHEZ Self - patient is the insured MEDICAL (GENERAL) HISTORY Medical History History ICD Code Negative colonoscopy in 199702/26/2009 Colonoscopy--2 small tubular adenomas Hypertension Denies NV,DM,CVA,Lung disease,renal dise ase Colonoscopy in 10/2015 with small tubula r adenomas removed Surgical History Surgery Date(Month/Year) Prostate surgery--TUNA procedure Vasectomy Hydrocele on the left Cataracts with IOL's
--- OUTSIDE RECORDS SUMMARY | 2025-01-11 13:16 | XMS_ITS ---
Author Organization Toni Piedra DO, FACP Address [address] [facility] [place] [phone] Care Team Providers Care Process Expert Name Role Phone Toni Piedra Primary Care Provider REASON FOR VISIT Message MEDICATIONS Medication SIG (Take, Route, Fr equency, Duration) Notes Start Date End Date Status Azithromycin 250 MG [address] day, then 1 tablet daily for 4 days Orally Once a day for 5 day(s) 09/10/2024 Active Encounters Encounter Location Date Provider Diagnosis Toni Piedra DO FACP [address] [place], [place] [phone] 09/10/2024 Toni Piedra PLAN OF TREATMENT Medication Medication Name Sig Start Date Stop Date Notes Azithromycin 250 MG [address] day, then 1 tablet daily for 4 days Orally Once a day for 5 day(s) 09/10/2024
--- OUTSIDE RECORDS SUMMARY | 2025-01-11 13:16 | XMS_ITS ---
Author Organization Toni Piedra DO, FACP Address [address] [facility] [place] [phone] Care Team Providers Care Superintendent Plant Protection Name Role Phone Dorothea Toni Primary Care [...] Location Date Provider Diagnosis Toni Piedra DO, [address] [phone] 10/23/2024 Toni Piedra Essential hypertensi on I10 [...] General Examination GENERAL APPEARANCE: in no ac [place] distress, well developed, well nourished HEAD: normocephalic, atrau matic HEART: no murmurs, regular rate and rhythm, S1, S2 normal LUNGS: clear to auscultatio n bilaterally ABDOMEN: normal, bowel sounds present, soft, nontender, nondistended SKIN: warm and dry EXTREMITIES: trace edema lower ex tremities PSYCH: alert, oriented, cog nitive function intact
[2025-01-11 13:25] LABS: MANUAL DIFF FLAG NO
[2025-01-11 13:49] LABS: Basophils Percent Auto 0.7 % (0-2); Eosinophils Absolute Auto 0.3 X10*3/uL (0.0-0.4); Eosinophils Percent Auto 4.9 % (0-4); Hematocrit 44.5 % (42.0-52.0); Hemoglobin 15.2 g/dl (14.0-18.0); Imm Gran Abs Auto 0.01 X10*3/uL (0.00-0.03); Imm Gran Pct Auto 0.2 % (0.0-0.4); Lymphocytes Absolute Auto 1.4 X10*3/uL (1.2-4.9); Lymphocytes Percent Auto 24.4 % (20-40); Mean Corpuscular HGB Conc 34.2 g/dl (31.0-36.0); Mean Corpuscular Hemoglobin 32.1 pg (27.0-33.0); Mean Corpuscular Volume 94.1 fL (80.0-98.0); Mean Platelet Volume 10.1 fL (9.4-12.4); Monocytes Absolute Auto 0.7 X10*3/uL (0.1-1.2); Monocytes Percent Auto 11.7 % (2-11); Neutrophils Absolute Auto 3.3 x10*3/uL (2.0-8.3); Neutrophils Percent Auto 58.1 % (45-73); Platelet Count 239 X10*3/uL (160-400); Red Blood Count 4.73 X10*6/uL (4.60-5.80); Red Cell Distribution Width 13.7 % (11.0-16.0); White Blood Count 5.7 X10*3/uL (4.8-10.8)
[2025-01-11 14:17] LABS: Estimated Average Glucose 103 mg/dL; Hemoglobin A1C 125.4389 umol/L; Hemoglobin A1c % 5.2 % (<6.0); Total Hemoglobin (HGBA1C) 3788.3378 umol/L
[2025-01-11 14:18] LABS: PSA,Total (Free>4and<10) 2.09 ng/mL (0.00-4.00)
[2025-01-11 14:19] LABS: B Type Natriuretic Peptide 58 pg/mL (<100)
[2025-01-11 14:23] LABS: Alanine Aminotransferase 27 U/L (0-40); Alkaline Phosphatase 96 U/L (39-117); Anion Gap 13 (12-20); Aspartate Amino Transferase 28 U/L (5-37); Bilirubin Direct 0.2 mg/dL (0.0-0.5); Bilirubin Total 0.5 mg/dL (0.0-1.0); Blood Urea Nitrogen 19 mg/dL (9-16); C Reactive Protein 0.35 mg/dL (< or = 0.50); Calcium 9.4 mg/dL (8.4-10.2); Carbon Dioxide 26 mmol/L (22-29); Chloride 106 mmol/L (96-108); Cholesterol 176 mg/dL (<200); Estimated Glomerular Filt Rate > 60; Glucose Fasting 83 mg/dL (60-99); HDL Cholesterol 37 mg/dL (>40); LDL Cholesterol Calculated 109 mg/dL (<100); Magnesium 2.3 mg/dL (1.6-2.6); Potassium 3.7 mmol/L (3.3-5.1); Sodium 141 mmol/L (135-145); Total Protein 7.1 g/dL (6.5-8.0); Triglycerides 154 mg/dL (<150)
[2025-01-11 14:27] LABS: TSH reflex Free T4 1.44 uIU/mL (0.32-4.0); Vitamin D 25-OH Total 42.5 ng/mL (>30)
[2025-01-11 14:33] LABS: Folate 15.5 ng/mL (> or = 4.0); Vitamin B12 471 pg/mL (200-900)
[2025-01-18 15:35] LABS: Vitamin B1 19 nmol/L (8-30)
== END 2025-01-11 11:15 | disposition home or self-care (01) ==
LOC: HO.HMGCLDS 11:14
PROVIDERS: PCP Internal Medicine; Visit Provider Physician Assistant Medical
DX: Z00.00 Encounter for general adult medical examination without abnormal findings (principal); R60.0 Localized edema; Z12.5 Encounter for screening for malignant neoplasm of prostate; Z13.1 Encounter for screening for diabetes mellitus; Z13.6 Encounter for screening for cardiovascular disorders
CPT/HCPCS: 36415; 80053; 80061; 80076; 82248; 82306; 82607; 82746; 83036; 83735; 83880; 84153; 84425; 84443; 85025; 86140

== ENCOUNTER 2025-01-29 10:21 | Outpatient (AMB) | payer MEDICARE, SELFPAY ==
[2025-01-29 10:22] VITALS: BP 128/76; PULSE 68; RESP 14; TEMP 36.4; O2SAT 97; BMI 40.6
--- NOTE | 2025-01-29 10:22 | A.OFFPC_ITS ---
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 Accompanied by: Self / Same As Patient Allergies hydrochlorothiazide Allergy (Unknown, Verified 01/29/25 10:42) Unknown Medication List - Last Reconciled 01/29/25 by Benoit Burris MD allopurinol 300 mg PO DAILY aspirin 81 mg PO DAILY atenolol 75 mg PO DAILY cholecalciferol (vitamin D3) (Vitamin D3) 25 mcg PO DAILY colchicine 0.6 mg PO DAILY diclofenac sodium 75 mg PO BID furosemide 80 mg PO DAILY losartan 100 mg PO DAILY leufvbwlbftv-ydgewgmn-vimmeo 1 tab PO DAILY omega-3 fatty acids 2,000 mg PO DAILY Tobacco use date assessed: 01/29/25 Fall risk assessment: No Falls in past year Last assessed Fall Risk: 01/29/25 Dental Screening Dental Screen Date: 01/29/25 Did you have a dental visit in the last 12 months?: No Did you have a dental problem in the last 6 months where you did not have access to dental care?: No [facility] Medical History Morbid obesity with BMI of 40.0-44.9, adult Abscess, eyebrow Gout Tubular adenoma Chronic low back pain Osteochondritis Osteoarthritis BPH (benign prostatic hyperplasia) Mild hypercholesterolemia HTN (hypertension) Surgical History History of colonoscopy (~12/03/20) S/P repair of hydrocele History of cataract surgery Family History (Updated 01/29/25 @ 10:33 by JOSEPHINE López) Father Congestive heart failure Mother Congestive heart failure Social History (Updated 01/29/25 @ 10:33 by JOSEPHINE López) Housing: House Alcohol intake: current Alcohol intake frequency: holidays/special occasions only Patient Tobacco Use Status: Never used Tobacco Advance Directives Date on File: 11/15/17 service: No Current occupational status: employed 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 1. Little interest or pleasure in doing things: not at all 2. Feeling down, depressed, or hopeless: not at all 3. Trouble falling or staying asleep, or sleeping too much: not at all 4. Feeling tired or having little energy: not at all 5. Poor appetite or overeating: not at all 6. Feeling bad about yourself - or that you are a failure or have let yourself or your family down: not at all 7. Trouble concentrating on things, such as reading the newspaper or watching television: not at all 8. Moving or speaking so slowly that other people could have noticed. Or the opposite - being so fidgety or restless that you have been moving around a lot more than usual: not at all 9. Thoughts that you would be better off or of hurting yourself in some way: not at all Total score: 0 Source: Developed by Drs. Toni Caruso, Meghan Hill, Abdulaziz Avila and colleagues, with an educational albino from [employer]. Thrive Questionnaire Date Thrive assessed: 01/29/25 I am a: Patient What is your living situation today?: I have a steady place to live Within the past 12 months, did the food you bought not last and you didn't have the money to get more?: Never true Within the past 12 months, did you worry whether your food would run out before you got money to buy more?: Never true Do you have trouble paying for medicines?: No Do you have trouble getting transportation to medical appointments?: No Do you have trouble paying your heating and electricity bill?: No Do you have trouble taking care of your child, family member or friend?: No Do you have trouble with day-to-day activities such as bathing, preparing meals, shopping, managing finances, etc.?: No Are you currently unemployed and looking for a job?: No Are you interested in more education?: No Please select the resources that you would like help with: None THRIVE Score: 0 AUDIT C Alcohol Use Questionnaire (AUDIT-C) 1. How often do you have a drink containing alcohol?: Monthly or less 2. How many drinks containing alcohol do you have on a typical day when you are drinking?: 1 or 2 3. How often do you have six or more drinks on one occasion?: Never Total Score: 1 ROGER-7 AMB Questionnaire ROGER-7 Date ROGER - 7 assessed: 01/29/25 Feeling nervous, anxious, or on edge: 0 = Not at all Not being able to stop or control worryin = Not at all Worrying too much about different things: 0 = Not at all Trouble relaxin = Not at all Being so restless that it is hard to sit still: 0 = Not at all Becoming easily annoyed or irritable: 0 = Not at all Feeling afraid as if something awful might happen: 0 = Not at all Total ROGER-7 score (0-4 normal; 5-9 mild; 10-14 moderate; 15-21 severe): 0 Source: Developed by Drs. Toni Caruso, Meghan Hill, Abdulaziz Avila and colleagues, with an educational albino from [employer]. Physical exam (Primary Care) Vital Signs: Last Vital Signs Temp 97.5 F 01/29/25 10:22 Pulse 68 01/29/25 10:22 Resp 14 01/29/25 10:22 BP 128/76 01/29/25 10:22 Pulse Ox 97 01/29/25 10:22 Oxygen Delivery Method Room Air 01/29/25 10:22 BMI result Body Mass Index 40.6 Tobacco/Smoking Status: Tobacco use Status Tobacco use date assessed 01/29/25 01/29/25 10:34 Patient Tobacco Use Status Never used Tobacco 01/29/25 10:34 PHQ-9: PHQ-9 Score PHQ-9: Total score 0 01/29/25 10:34 Thrive Assessment: Date of Thrive Assessment Date Thrive assessed 01/29/25 01/29/25 10:34 Coding Level of Care Code New Pt Level 4 (33251) Complex EM visit Add On G2211 Diagnoses HTN (hypertension) I10 Mild hypercholesterolemia E78.00 Assessment & Plan Assessment & Plan (1) HTN (hypertension): Code(s): I10 - Essential (primary) hypertension Category: Medical Plan: Continue current medications (2) Mild hypercholesterolemia: Code(s): E78.00 - Pure hypercholesterolemia, unspecified Category: Medical Plan: Continue current medications Plan History of Present Illness The patient is a 74-year-old male presenting with a follow-up for a left eye lump and medication review. In December, a surgical procedure was performed to address the left eye lump due to suspected infection. The lump remains, and uncertainty exists regarding its resolution. Regarding his medication regimen for gout, he has utilized colchicine previously for flares but began daily use recently. Despite reporting decreased foot pain, continual colchicine use poses a risk of gastrointestinal distress, and he was advised to limit usage to acute exacerbations. The patient was previously placed on allopurinol for gout prophylaxis, yet he questions its efficacy as major attacks did not occur often. Significant past medical events include severe chest pain that led to an emergency department evaluation with no cardiac cause found, and the pain was possibly digestive in origin. His medical history indicates obesity, with previous involvement in a weight- loss program that resulted in significant weight loss, which has since reversed. Concerns about excessive furosemide were also addressed, given no current heart conditions warrant such dosing, and it may complicate venipuncture procedures. 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 - Weight management: Previously lost weight through diet, now experiencing weight gain - Physical activity: Manual involvement in work, usage of CAD for design purposes Review of Systems - Cardiovascular: Reports previous severe chest pain - Musculoskeletal: Reports lower extremity pain - Medicinal/GI: Reports use of colchicine for gout alleviation of foot pain; experiences digestive irregularities Physical Exam General: Cooperative, healthy appearing, comfortable, no acute distress and well developed Orientation: Patient oriented x3 Limitations: No limitations Head: Normal to inspection Ears: Hearing grossly normal bilaterally Nose: Normal external nose present Face and sinus: Normal facial exam Eyes: Appearance normal, both eyes and all related structures Neck: Normal visual inspection and Yes full ROM Respiratory: Normal respiratory effort and able to speak in complete sentences. Clear to auscultation bilaterally Cardiovascular: Regular rate and rhythm. Normal S1 and S2 GI: Normal to inspection. Soft to palpation and nontender Skin: No rashes or lesions noted Neuro: Patient oriented x3 Extremities: Normal to inspection Results - Labs: Blood work within normal range for cholesterol, kidney, and liver functions - Tests: Stress test normal; chest X-ray and CT scan showed no cardiac issues during recent ED visit Plan The patient's current treatment strategy involves limiting colchicine use to gout flare-ups to avoid gastrointestinal side effects. The use of allopurinol was reassessed, with the patient deciding to discontinue due to its limited perceived benefit. We agreed to pause furosemide, given the absence of a current heart condition necessitating its use. Emphasis was placed on lifestyle intervention focusing on weight reduction, potentially engaging a railroad maintenance clerk, consistent with past successful outcomes. Consideration was given to adding omeprazole to treat possible reflux-related chest pain. Follow-up will monitor response to changes in the medication regimen and engage in further weight michael gement steps. Patient was informed and verbally consented to the use of an ambient scribe for clinic note documentation during this visit. Discussion Notes I discussed with the patient the discontinuation of colchicine when not experiencing acute gout attacks to prevent gastric side effects. We also explored the possibility of omeprazole to manage digestive distress, potentially the source of the prior chest pain episode. Additionally, long-term allopurinol usage was reviewed, considering the limited benefit in preventing rare gout attacks and the decision was made to stop it. The cessation of furosemide was agreed upon after evaluating its original indication and excessive dosage not required without current cardiac issues. Weight and nutritional management were discussed, with plans to re-engage with a railroad maintenance clerk and focus on losing weight to return to previous health milestones. Follow-up was planned to reassess the response to these medication adjustments and overall well-being. Patient Instructions - Only take colchicine during gout attacks, not daily - Discontinue allopurinol use for gout prevention - Stop taking furosemide and monitor for any weight changes - Consider visiting a railroad maintenance clerk for weight management - Follow a healthy diet and incorporate regular exercise - Take omeprazole if experiencing stomach discomfort - Return for follow-up in a month or sooner if experiencing significant symptoms or concerns
== END 2025-01-29 11:15 | disposition home or self-care (01) ==
LOC: HO.HMCSH 10:21
PROVIDERS: PCP Internal Medicine; Visit Provider Internal Medicine
DX: I10 Essential (primary) hypertension (principal); E78.00 Pure hypercholesterolemia, unspecified

== ENCOUNTER → 2025-01-29 10:21 | Outpatient (BNVA) | payer MEDICARE, SELFPAY | PROVIDERS: PCP Internal Medicine; Visit Provider Internal Medicine | DX: I10 Essential (primary) hypertension (principal); E78.00 Pure hypercholesterolemia, unspecified | CPT/HCPCS: 99202 ==

== ENCOUNTER 2025-02-26 13:50 | Outpatient (AMB) | payer MEDICARE, SELFPAY ==
[2025-02-26 13:59] VITALS: BP 160/90; PULSE 64; RESP 16; TEMP 36.6; O2SAT 99; BMI 41.8
--- NOTE | 2025-02-26 13:59 | A.OFFPC_ITS ---
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 Accompanied by: Self / Same As Patient Allergies hydrochlorothiazide Allergy (Unknown, Verified 02/26/25 14:05) Unknown Tobacco use date assessed: 02/26/25 Fall risk assessment: No Falls in past year Last assessed Fall Risk: 02/26/25 Dental Screening Dental Screen Date: 01/29/25 [facility] Medical History Morbid obesity with BMI of 40.0-44.9, adult Abscess, eyebrow Gout Tubular adenoma Chronic low back pain Osteochondritis Osteoarthritis BPH (benign prostatic hyperplasia) Mild hypercholesterolemia HTN (hypertension) Surgical History History of colonoscopy (~12/03/20) S/P repair of hydrocele History of cataract surgery Family History Father Congestive heart failure Mother Congestive heart failure Social History Housing: House Alcohol intake: current Alcohol intake frequency: holidays/special occasions only Patient Tobacco Use Status: Never used Tobacco Advance Directives Date on File: 11/15/17 service: No Current occupational status: employed 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 1. Little interest or pleasure in doing things: not at all 2. Feeling down, depressed, or hopeless: not at all 3. Trouble falling or staying asleep, or sleeping too much: not at all 4. Feeling tired or having little energy: not at all 5. Poor appetite or overeating: not at all 6. Feeling bad about yourself - or that you are a failure or have let yourself or your family down: not at all 7. Trouble concentrating on things, such as reading the newspaper or watching television: not at all 8. Moving or speaking so slowly that other people could have noticed. Or the opposite - being so fidgety or restless that you have been moving around a lot more than usual: not at all 9. Thoughts that you would be better off or of hurting yourself in some way: not at all Total score: 0 Source: Developed by Drs. Toni Caruso, Meghan Hill, Abdulaziz Avila and colleagues, with an educational albino from [employer]. Thrive Questionnaire Date Thrive assessed: 01/29/25 I am a: Patient What is your living situation today?: I have a steady place to live Within the past 12 months, did the food you bought not last and you didn't have the money to get more?: Never true Within the past 12 months, did you worry whether your food would run out before you got money to buy more?: Never true Do you have trouble paying for medicines?: No Do you have trouble getting transportation to medical appointments?: No Do you have trouble paying your heating and electricity bill?: No Do you have trouble taking care of your child, family member or friend?: No Do you have trouble with day-to-day activities such as bathing, preparing meals, shopping, managing finances, etc.?: No Are you currently unemployed and looking for a job?: No Are you interested in more education?: No Please select the resources that you would like help with: None THRIVE Score: 0 AUDIT C Alcohol Use Questionnaire (AUDIT-C) 1. How often do you have a drink containing alcohol?: Monthly or less 2. How many drinks containing alcohol do you have on a typical day when you are drinking?: 1 or 2 3. How often do you have six or more drinks on one occasion?: Never Total Score: 1 ROGER-7 AMB Questionnaire ROGER-7 Date ROGER - 7 assessed: 01/29/25 Feeling nervous, anxious, or on edge: 0 = Not at all Not being able to stop or control worryin = Not at all Worrying too much about different things: 0 = Not at all Trouble relaxin = Not at all Being so restless that it is hard to sit still: 0 = Not at all Becoming easily annoyed or irritable: 0 = Not at all Feeling afraid as if something awful might happen: 0 = Not at all Total ROGER-7 score (0-4 normal; 5-9 mild; 10-14 moderate; 15-21 severe): 0 Source: Developed by Drs. Toni Caruso, Meghan Hill, Abdulaziz Avila and colleagues, with an educational albino from [employer]. Physical exam (Primary Care) Vital Signs: Last Vital Signs Temp 97.9 F 02/26/25 13:59 Pulse 64 02/26/25 13:59 Resp 16 02/26/25 13:59 BP 160/90 H 02/26/25 13:59 Pulse Ox 99 02/26/25 13:59 Oxygen Delivery Method Room Air 02/26/25 13:59 BMI result Body Mass Index 41.8 Tobacco/Smoking Status: Tobacco use Status Tobacco use date assessed 02/26/25 02/26/25 14:14 Patient Tobacco Use Status Never used Tobacco 02/26/25 14:00 PHQ-9: PHQ-9 Score PHQ-9: Total score 0 02/26/25 14:16 Thrive Assessment: Date of Thrive Assessment Date Thrive assessed 01/29/25 02/26/25 14:00 Coding Level of Care Code Est Pt Level 4 (92444) Complex EM visit Add On G2211 Diagnoses HTN (hypertension) I10 Assessment & Plan Assessment & Plan (1) HTN (hypertension): Code(s): I10 - Essential (primary) hypertension Category: Medical Plan: Blood pressure is stable. Continue current medications Plan History of Present Illness The patient is a 74-year-old male presenting with a follow-up for chronic medical conditions including hypertension, gout, edema, and GERD. 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 He experienced a significant weight increase post-reduction of furosemide, resulting in lower extremity edema. Additionally, he reported sleep disturbances, fatigue, and associated pain particularly in the lower ext remities, which worsens with low energy levels. He adheres to dietary management strategies from a past successful weight loss using a diet clinic. His GERD symptoms maintained stable with omeprazole usage, although initial gaseous episodes were noted. His blood pressure had increased, correlating with his edema. The patient is proactive in managing his health utilizing medication adjustments and planned consultations with a event staff to aid weight loss efforts. 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 - Lifestyle: High level of activity related to trumpet playing, engaged in weight management strategies. - Nutrition: Previously involved in a structured weight loss clinic, indicating active nutritional counseling. - Functional Status: Relatively active with limitations due to periodic musculoskeletal pain. Review of Systems - Musculoskeletal: Reports pain in knees and feet. - Gastrointestinal: Reports initial gaseous discomfort with omeprazole, denies ongoing stomach discomfort. - Non-specific: Reports sleep disturbances; associated fatigue and reduced energy levels. Physical Exam General: Cooperative and healthy appearing Nutritional Appearance: Well nourished Orientation/consciousness: Patient oriented x3 Limitations: No limitations Head: Normal to inspection General: Appearance normal, both eyes and all related structures Neck: Normal visual inspection Chest: Normal palpation of entire chest wall Respiratory: N ormal respiratory effort Neurology: Patient oriented x3, reports pain in lower extremities and feet, affecting balance. Results - Labs: All blood work results were within normal limits. - Tests and Diagnostics: None mentioned. Plan The patient will maintain furosemide usage at a reduced dosage to manage hypertension and edema, ensuring symptom alleviation while maintaining professional function. Continued omeprazole will manage GERD symptoms, and intermittent diclofenac usage will address pain while considering renal health. Engagement with a event staff is planned to further weight management goals, leveraging past successful interventions. Regular follow-up will allow for ongoing evaluation and management adjustments. Patient was informed and verbally consented to the use of an ambient scribe for clinic note documentation during this visit. Discussion Notes I discussed with the patient the need to continue with daily furosemide intake to address weight gain and its role in managing his blood pressure and edema effectively. While understanding his occupational needs as a envelope addresser, this balance was deemed suitable. I explained the stable results of his blood work and the importance of maintaining GERD management with omeprazole. We reviewed the use of diclofenac for pain relief, cautioning about renal implications and advising limited dosing per week. I emphasized the importance of engaging with nutritional counseling to aid his weight loss efforts based on his historical success. Follow-up visits were outlined for further management and adjustment discussion. Patient Instructions
--- OUTSIDE RECORDS SUMMARY | 2025-02-26 17:02 | XMS_ITS | Data Portability ---
Author Organization [facility], [facility] Address [address] [place] [address] Assessment No assessment recorded. 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 Medical Equipment None Reported. Vitals None Recorded Social History None recorded. Functional Status None recorded. Mental Status None recorded. Family History Nothing Reported. Medical History No medical history recorded. Past Encounters Encounter ID Performer Location Encounter Start Date Encounter Closed Date Diagnosis/Indication Diagnosis SNOMED-CT Code Diagnosis ICD10 Code Diagnosis Note [id number] Physical Therapy, [address] [address] 01/10/2004 10:03:07 01/10/2004 11:08:34 [id number] Physical Therapy, [address] [address] 01/20/2004 14:36:52 01/20/2004 16:31:43 Health Concerns Section Related Observation LastModified by Organization Detai ls LastModified Time None Recorded Concern Status LastModified by Organization Details LastModified Time None Recorded Advance Directives Directive None Recorded Payers Encounter Date Sequence Insurance Name Policy Number Policy Andersen Covered Member ID Andersen Member ID Guarantor Name 01/10/2004 1 [facility]: [facility] [employer] - [facility] [place] [id number] Jazmin Kapoor [id number] 01/20/2004 1 [facility]: [facility] - [facility] [place] [id number] Jazmin Kapoor [id number]
== END 2025-02-26 14:44 | disposition home or self-care (01) ==
LOC: HO.HMCSH 13:50
PROVIDERS: PCP Internal Medicine; Visit Provider Internal Medicine
DX: I10 Essential (primary) hypertension (principal)

== ENCOUNTER → 2025-02-26 13:50 | Outpatient (BNVA) | payer MEDICARE, SELFPAY | PROVIDERS: PCP Internal Medicine; Visit Provider Internal Medicine | DX: I10 Essential (primary) hypertension (principal) | CPT/HCPCS: 99212 ==

== ENCOUNTER 2025-02-28 11:07 | Outpatient (AMB) | payer MEDICARE, SELFPAY ==
--- NOTE | 2025-02-28 11:40 | MHC.AMNUTRGE ---
VS Expanded 02/28/25 11:45 02/28/25 11:55 Height 5 ft 8 in 5 ft 8 in Weight 266 lb 15.677 oz 267 lb BMI 40.6 40.6 Intake Visit Reasons: Morbid (severe) obesity due to excess calories Allergies hydrochlorothiazide Allergy (Unknown, Verified 02/26/25 14:05) Unknown Nutrition Presentation Details: Pt presents for MNT for obesity food fruquency fruit:0- 1/d fish / <1 wks dairy: 3/d 1 % vex/wk starches > 30 etoh/smoking--- physical activity ADL beverages: milk, water, juice BS Monitoring Most Recent Diabetes Results: Cholesterol 176 mg/dL (<200) 01/11/25 HDL Cholesterol 37 mg/dL (>40) L 01/11/25 Triglycerides 154 mg/dL (<150) H 01/11/25 Creatinine 0.85 mg/dL (0.5-1.4) 01/11/25 Blood Urea Nitrogen 19 mg/dL (9-16) H 01/11/25 Sodium 141 mmol/L (135-145) 01/11/25 Potassium 3.7 mmol/L (3.3-5.1) 01/11/25 Chloride 106 mmol/L (96-108) 01/11/25 Carbon Dioxide 26 mmol/L (22-29) 01/11/25 Calcium 9.4 mg/dL (8.4-10.2) 01/11/25 AST 28 U/L (5-37) 01/11/25 ALT 27 U/L (0-40) 01/11/25 Total Protein 7.1 g/dL (6.5-8.0) 01/11/25 Albumin 4.0 g/dL (3.5-5.0) 01/11/25 LOH-Ytrxoam-Yh.Jeor Equation Height: 5 ft 8 in Weight: 267 lb Resting Metabolic Rate: 1930.30 Calculated Activity Level: Sedentary Calories Needed to Maintain Weight: 2316.36 Diagnosis Nutrition problem #1: excessive energy intake As related to (etiology) #1: diagnosis As evidenced by (sign/symptom) #1: knowledge deficit of diet FORMERLY [facility], [facility]–1983 Medical History Morbid obesity with BMI of 40.0-44.9, adult Abscess, eyebrow Gout Tubular adenoma Chronic low back pain Osteochondritis Osteoarthritis BPH (benign prostatic hyperplasia) Mild hypercholesterolemia HTN (hypertension) Surgical History (Updated 03/06/25 @ 08:38 by Alycia Wiley) History of colonoscopy (~12/03/20) S/P repair of hydrocele History of cataract surgery Family History Father Congestive heart failure Mother Congestive heart failure Social History Housing: House Alcohol intake: current Alcohol intake frequency: holidays/special occasions only Patient Tobacco Use Status: Never used Tobacco Advance Directives Date on File: 11/15/17 service: No Current occupational status: employed 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 Cognitive needs: No Hearing needs: No Vision needs: Yes (reading glasses) Assessment & Plan Assessment & Plan (1) Morbid obesity with BMI of 40.0-44.9, adult: Code(s): E66.01 - Morbid (severe) obesity due to excess calories; Z68.41 - Body mass index [BMI] 40.0-44.9, adult Category: Medical Plan: Wt: 121 Kg ( 03/08) Est kcal needs as per MSJ: 2300 (40% carb, 30% protein/fat) Est fluid needs as per 25-30 ml/d: 3600 Est prot per day as per 1 g/kg bw: 121 Recommend fiber intake : 8-10 g per day and gradually increase to 25-28 g per day for women and 35-38 g for men or as tolerated Recommend sodium intake per day : less than 2000 mg Educated patient on: ( R = reviewed V = verbalizes understanding N/R = needs review N/A = not applicable Food sources of carbohydrate, adequate serving sizes and its role in various health conditions: R V N/R Differences between complex carbohydrates a simple carbohydrates, role of fiber in diet: R Lean protein sources of foods: R Differences between types of fats and role in diet (mono on saturated fat fatty acids, saturated fatty acids, trans fats): R V N/R Food sources of sodium in salt and healthy modifications for heart health in kidney health: R V R/V Vitamins and minerals: R V N/R Healthy plate method concept: R Physical activity: Benefits a precaution: R V N/R Patient Instructions: Reduce on sugars (pastries/sugar added to foods, beverages) Practice mindful eating Follow healthy plate method at dinner see meal ideas Coding Level of Care Code Nutr Indiv Intake (60854) Diagnoses Morbid obesity with BMI of 40.0-44.9, adult E66.01; Z68.41 Time Spent (min) 30
[2025-02-28 11:45] VITALS: BMI 40.6
[2025-03-18 22:22] VITALS: BMI 40.6
== END 2025-02-28 12:28 | disposition home or self-care (01) ==
LOC: HO.ENCR 11:07
PROVIDERS: PCP Internal Medicine; Visit Provider Dietitian, Registered
DX: E66.01 Morbid (severe) obesity due to excess calories (principal); Z68.41 Body mass index [BMI] 40.0-44.9, adult

== ENCOUNTER → 2025-02-28 11:07 | Outpatient (BNVA) | payer MEDICARE, SELFPAY | PROVIDERS: PCP Internal Medicine; Visit Provider Dietitian, Registered | DX: E66.01 Morbid (severe) obesity due to excess calories (principal); Z68.41 Body mass index [BMI] 40.0-44.9, adult | CPT/HCPCS: 97802 ==

== ENCOUNTER 2025-05-28 09:55 | Outpatient (REF) | payer MEDICARE, SELFPAY ==
--- NOTE | ~2025-05-28 | XR_ITS ---
EXAMINATION: XR FOOT 3 OR MORE VIEWS LEFT HISTORY: M20.12 - Hallux valgus (acquired), left foot COMPARISON: There are no prior studies available for comparison. FINDINGS: Three views of the left foot are submitted. Osseous mineralization is normal. There is no fracture or dislocation. There is moderate to severe degenerative change of the 1st tarsometatarsal joint and mild to moderate degenerative change of the intertarsal joints. There is a enteric calcaneal spur. The soft tissues are unremarkable. XR/XR foot LT min 3V IMPRESSION: Degenerative changes of the left foot as described. Electronically signed by: Toni Richey MD 05/28/2025 11:20 AM EDT
== END 2025-05-28 09:56 | disposition home or self-care (01) ==
LOC: HO.HMGCX 09:55
PROVIDERS: PCP Internal Medicine; Visit Provider Internal Medicine
DX: M20.12 Hallux valgus (acquired), left foot (principal); M79.671 Pain in right foot; E66.01 Morbid (severe) obesity due to excess calories; Z68.37 Body mass index [BMI] 37.0-37.9, adult; I10 Essential (primary) hypertension; H02.826 Cysts of left eye, unspecified eyelid; Z79.899 Other long term (current) drug therapy; Z13.39 Encounter for screening examination for other mental health and behavioral disorders
CPT/HCPCS: 73630; 96127; 99212

== ENCOUNTER 2025-05-28 09:55 | Outpatient (AMB) | payer MEDICARE, SELFPAY ==
[2025-05-28 09:57] VITALS: BP 160/78; PULSE 60; RESP 16; TEMP 36.7; O2SAT 96; BMI 37.9
--- NOTE | 2025-05-28 09:57 | MHC.PC.OV ---
Vital Signs 05/28/25 09:57 Height 5 ft 8 in Weight 249 lb BMI 37.9 BP 160/78 H Respiration 16 Pulse 60 Pulse Source Pulse Oximeter Temp 98.0 F Temp Source Temporal Artery Scan Pulse Oximetry (%) 96 Oxygen Delivery Method Room Air Intake Visit Reasons: 3 month f/u Nutrition Club Ambassador Required: No Accompanied by: Self / Same As Patient Allergies hydrochlorothiazide Allergy (Unknown, Verified 05/28/25 10:38) Unknown Medication List - Last Reconciled 05/28/25 by Benoit Burris MD aspirin 81 mg PO DAILY atenolol 75 mg PO DAILY cholecalciferol (vitamin D3) (Vitamin D3) 25 mcg PO DAILY colchicine 0.6 mg PO DAILY diclofenac sodium 75 mg PO BID furosemide 40 mg PO BID losartan 100 mg PO DAILY gbipbwvmfshx-xscjdxwo-pwqhfj 1 tab PO DAILY omega-3 fatty acids 2,000 mg PO DAILY omeprazole 20 mg PO DAILY Tobacco use date assessed: 05/28/25 Fall risk assessment: No Falls in past year Last assessed Fall Risk: 05/28/25 Dental Screening Dental Screen Date: 01/29/25 [facility] Medical History Morbid obesity with BMI of 40.0-44.9, adult Abscess, eyebrow Gout Tubular adenoma Chronic low back pain Osteochondritis Osteoarthritis BPH (benign prostatic hyperplasia) Mild hypercholesterolemia HTN (hypertension) Surgical History History of colonoscopy (~12/03/20) S/P repair of hydrocele History of cataract surgery Family History Father Congestive heart failure Mother Congestive heart failure Social History Housing: House Alcohol intake: current Alcohol intake frequency: holidays/special occasions only Patient Tobacco Use Status: Never used Tobacco Advance Directives Date on File: 11/15/17 service: No Current occupational status: employed 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 1. Little interest or pleasure in doing things: not at all 2. Feeling down, depressed, or hopeless: not at all 3. Trouble falling or staying asleep, or sleeping too much: not at all 4. Feeling tired or having little energy: not at all 5. Poor appetite or overeating: not at all 6. Feeling bad about yourself - or that you are a failure or have let yourself or your family down: not at all 7. Trouble concentrating on things, such as reading the newspaper or watching television: not at all 8. Moving or speaking so slowly that other people could have noticed. Or the opposite - being so fidgety or restless that you have been moving around a lot more than usual: not at all 9. Thoughts that you would be better off or of hurting yourself in some way: not at all Total score: 0 Source: Developed by Drs. Toni Caruso, Meghan Hill, Abdulaziz Avila and colleagues, with an educational albino from [employer]. Thrive Questionnaire Date Thrive assessed: 02/26/25 I am a: Patient What is your living situation today?: I have a steady place to live Within the past 12 months, did the food you bought not last and you didn't have the money to get more?: Never true Within the past 12 months, did you worry whether your food would run out before you got money to buy more?: Never true Do you have trouble paying for medicines?: No Do you have trouble getting transportation to medical appointments?: No Do you have trouble paying your heating and electricity bill?: No Do you have trouble taking care of your child, family member or friend?: No Do you have trouble with day-to-day activities such as bathing, preparing meals, shopping, managing finances, etc.?: No Are you currently unemployed and looking for a job?: No Are you interested in more education?: No Please select the resources that you would like help with: None THRIVE Score: 0 AUDIT C Alcohol Use Questionnaire (AUDIT-C) 1. How often do you have a drink containing alcohol?: Monthly or less 2. How many drinks containing alcohol do you have on a typical day when you are drinking?: 1 or 2 3. How often do you have six or more drinks on one occasion?: Never Total Score: 1 ROGER-7 AMB Questionnaire ROGER-7 Date ROGER - 7 assessed: 02/26/25 Feeling nervous, anxious, or on edge: 0 = Not at all Not being able to stop or control worryin = Not at all Worrying too much about different things: 0 = Not at all Trouble relaxin = Not at all Being so restless that it is hard to sit still: 0 = Not at all Becoming easily annoyed or irritable: 0 = Not at all Feeling afraid as if something awful might happen: 0 = Not at all Total ROEGR-7 score (0-4 normal; 5-9 mild; 10-14 moderate; 15-21 severe): 0 Source: Developed by Drs. Toni Caruso, Meghan Hill, Abdulaziz Avila and colleagues, with an educational albino from [employer]. Physical exam (Primary Care) Vital Signs: Last Vital Signs Temp 98.0 F 05/28/25 09:57 Pulse 60 05/28/25 09:57 Resp 16 05/28/25 09:57 BP 160/78 H 05/28/25 09:57 Pulse Ox 96 05/28/25 09:57 Oxygen Delivery Method Room Air 05/28/25 09:57 Care Plan Goal for BP management: BP is elevated BMI result Body Mass Index 37.9 Tobacco/Smoking Status: Tobacco use Status Tobacco use date assessed 05/28/25 05/28/25 10:06 Patient Tobacco Use Status Never used Tobacco 05/28/25 10:06 PHQ-9: PHQ-9 Score PHQ-9: Total score 0 05/28/25 10:09 Thrive Assessment: Date of Thrive Assessment Date Thrive assessed 02/26/25 05/28/25 10:06 Coding Level of Care Code Est Pt Level 4 (81942) Complex EM visit Add On G2211 Diagnoses Right foot pain M79.671 Acquired hallux valgus of left foot M20.12 Morbid obesity with BMI of 40.0-44.9, adult E66.01; Z68.41 HTN (hypertension) I10 Cyst of left eyelid H02.826 Assessment & Plan Assessment & Plan (1) Right foot pain: Code(s): M79.671 - Pain in right foot Plan: X ray ordered. Podiatry consult made (2) Acquired hallux valgus of left foot: Code(s): M20.12 - Hallux valgus (acquired), left foot Plan: As above (3) Morbid obesity with BMI of 40.0-44.9, adult: Code(s): E66.01 - Morbid (severe) obesity due to excess calories; Z68.41 - Body mass index [BMI] 40.0-44.9, adult Category: Medical Plan: Continue to see the hydroelectric plant electrician (4) HTN (hypertension): Code(s): I10 - Essential (primary) hypertension Category: Medical Plan: BP is elevated. Increase Furosemide to 40 mg twice a day (5) Cyst of left eyelid: Code(s): H02.826 - Cysts of left eye, unspecified eyelid Plan: Patient wishes to have it removed. Appt with Surgery made Plan History of Present Illness - The patient is a 74-year-old male presenting with management of hypertension and edema. - Hypertension: Reports variable blood pressure readings at home, with occasional low readings. Currently on atenolol and losartan, both at maximum doses, and furosemide once daily. Concerned about lack of energy despite weight loss. - Edema: Reports persistent edema, particularly in the left foot, which is painful and affects mobility. Suspects water retention and advised to increase furosemide dosage. X-ray and munitions handler consultation planned. - Constipation and Hemorrhoids: Experienced constipation and hemorrhoids after using a protein supplement, which has been discontinued. Reports improvement after returning to a normal diet. - Weight Management: Lost weight from 267 to 249 pounds through dietary changes, including portion control and avoiding late-night snacks. Plans to continue weight loss with a goal of reaching 200 pounds. - Preventative Care: Previously consulted a hydroelectric plant electrician, which helped change dietary habits. Plans to reconnect with the hydroelectric plant electrician for further guidance. Social History - Exercise: The patient acknowledges the need to increase physical activity to aid weight loss. - Nutrition: The patient has made dietary changes, focusing on portion control and eliminating late-night snacks, contributing to weight loss. Review of Systems - Cardiovascular: Reports variable blood pressure readings. Denies chest pain. - Gastrointestinal: Reports constipation and hemorrhoids after protein supplement use, now resolved. - Musculoskeletal: Reports left foot pain and swelling, affecting mobility. - General: Reports lack of energy despite weight loss. Physical Exam General: Cooperative and healthy appearing Nutritional Appearance: Well nourished Orientation/consciousness: Patient oriented x3 Limitations: No limitations Head: Normal to inspection General: Appearance normal, both eyes and all related structures Neck: Normal visual inspection Chest: Normal palpation of entire chest wall Respiratory: Normal respiratory effort Neurology: Patient oriented x3 Results Plan 1. Hypertension - Plan to increase furosemide dosage to manage blood pressure and edema. - Continue atenolol and losartan as prescribed. 2. Edema - Increase furosemide dosage to manage edema. - Plan for x-ray of the left foot and munitions handler consultation. 3. Constipation - Discontinued protein supplement that caused constipation. 4. Hemorrhoids - Resolved after discontinuing protein supplement. 5. Preventative Care - Referral to hydroelectric plant electrician for continued weight management support. Discussion Notes I discussed with the patient the plan to increase the furosemide dosage to better manage his hypertension and edema. We also talked about the importance of continuing his current medications, atenolol and losartan, as prescribed. I recommended an x-ray of his left foot and a consultation with a munitions handler to address his foot pain and swelling. We agreed on the need for a referral to a hydroelectric plant electrician to support his weight management goals. I explained the potential benefits and side effects of these plans and encouraged him to monitor his symptoms closely. Patient Instructions - Increase furosemide dosage as discussed to help manage blood pressure and swelling. - Continue taking atenolol and losartan as prescribed. - Schedule an x-ray for the left foot and follow up with a munitions handler. - Contact the hydroelectric plant electrician to set up an appointment for weight management support. Orders: Orders XR foot LT min 3V Today M20.12 - Hallux valgus (acquired), left foot Referrals Podiatry Referral M79.671 - Pain in right foot General Surgery Referral L72.3 - Sebaceous cyst
--- OUTSIDE RECORDS SUMMARY | 2025-05-28 10:43 | XMS_ITS | Data Portability ---
Author Organization [facility] [place], , [facility] Address [address] [place] [address] Assessment No assessment recorded. 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 Medical Equipment None Reported. Vitals None Recorded Social History None recorded. Functional Status None recorded. Mental Status None recorded. Family History Nothing Reported. Medical History No medical history recorded. Past Encounters Encounter ID Performer Location Encounter Start Date Encounter Closed Date Diagnosis/Indication Diagnosis SNOMED-CT Code Diagnosis ICD10 Code Diagnosis Note [id number] Sunny Barrett i, PT Physical Therapy, [address] [address] 01/10/2004 10:03:07 01/10/2004 11:08:34 [id number] Sunny Barrett i PT Physical Therapy, [address] [address] 01/20/2004 14:36:52 01/20/2004 16:31:43 Health Concerns Section Related Observation LastModified by Organization Detai ls LastModified Time None Recorded Concern Status LastModified by Organization Details LastModified Time None Recorded Advance Directives Directive None Recorded Payers Insurance Date Sequence Insurance Name Policy Number Policy Andersen Covered Member ID Andersen Member ID Guarantor Name 01/31/2004 1 [facility]: [facility] - [facility] [place] [place] [id number] Jazmin Kapoor [id number]
== END 2025-05-28 10:33 | disposition home or self-care (01) ==
LOC: HO.HMCSH 09:55
PROVIDERS: PCP Internal Medicine; Visit Provider Internal Medicine
DX: M79.671 Pain in right foot (principal); M20.12 Hallux valgus (acquired), left foot; E66.01 Morbid (severe) obesity due to excess calories; Z68.41 Body mass index [BMI] 40.0-44.9, adult; I10 Essential (primary) hypertension; H02.826 Cysts of left eye, unspecified eyelid

== ENCOUNTER → 2025-05-28 10:54 | Outpatient (BNV) | payer MEDICARE, SELFPAY | PROVIDERS: PCP Internal Medicine; Visit Provider Radiology Diagnostic Radiology | DX: M19.272 Secondary osteoarthritis, left ankle and foot (principal) | CPT/HCPCS: 73630 ==

== ENCOUNTER 2025-07-19 09:47 | Outpatient (AMB) | payer MEDICARE, SELFPAY ==
--- NOTE | 2025-07-19 10:06 | MHC.OFFVIS ---
Vital Signs 07/19/25 10:15 Height 5 ft 8 in Weight 250 lb BMI 38.0 BP 186/88 H Blood Pressure Location Lt brachial Position Sitting Pulse 64 Intake Visit Reasons: sebaceous cyst Intake Note: Patient is seen in office for evaluation of a sebaceous cyst. 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 This has been present for several months in his gradually increased in size. An incision and drainage was performed recently with production of a whitish output. The lesion subsequently has returned in his increasing in size. He presents today to discuss excision of this lesion. He currently denies any pain or discharge. [facility] Medical History Morbid obesity with BMI of 40.0-44.9, adult Abscess, eyebrow Gout Tubular adenoma Chronic low back pain Osteochondritis Osteoarthritis BPH (benign prostatic hyperplasia) Mild hypercholesterolemia HTN (hypertension) Surgical History History of colonoscopy (~12/03/20) S/P repair of hydrocele History of cataract surgery Family History Father Congestive heart failure Mother Congestive heart failure Social History Housing: House Alcohol intake: current Alcohol intake frequency: holidays/special occasions only Patient Tobacco Use Status: Never used Tobacco Advance Directives Date on File: 11/15/17 service: No Current occupational status: employed 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 0.75 cm epidermal inclusion cyst in the upper lateral left eyelid below the brow. No redness, fluctuance, tenderness, or discharge noted. Resp Effort & Inspection: normal respiratory effort, no audible wheezes, no cough and no respiratory distress Cardio Jugular venous distension: no JVD GI Inspection: Yes normal to inspection Skin Other: Warm, dry, no rash Neuro General: patient oriented x3 Extrem General: Yes no clubbing, cyanosis or edema Assessment & Plan Assessment & Plan (1) Epidermal inclusion cyst of eyelid: Code(s): H02.829 - Cysts of unspecified eye, unspecified eyelid Category: Medical Plan 75-year-old male patient presenting with a previously infected epidermal inclusion cyst of the left upper eyelid, status post incision and drainage. I recommended an excision of this epidermal inclusion cyst under local anesthesia as a minor surgery and after discussion of the procedure, risks and alternatives, he consents to the procedure. Coding Level of Care Code New Pt Level 4 (80695) Diagnoses Epidermal inclusion cyst of eyelid H02.829
[2025-07-19 10:15] VITALS: BP 186/88; PULSE 64; BMI 38.0
--- OUTSIDE RECORDS SUMMARY | 2025-07-19 10:35 | XMS_ITS | Encounter Summary ---
Author Organization [facility] Address [address] [facility] [address] [place] [address] Phone Care Team Providers Care Bag Sorter Name Role Phone Toni Piedra DO Primary Care Provider [phone] Benoit Burris MD Primary Care Provid er Encounter Details Date Type Department Care Team (Latest Contact Info) Description 11/23/2021 Transcribe Orders [facility] [address] [place] [address] [place] [address] Toni Piedra DO [address] [place] [address] [id number] Hypertension, unspecified type (Primary Dx); Screening for prostate cancer; Routine general medical examination at a health care facility; Pure hypercholesterolemia ; Non morbid obesity due to excess calories; Benign prostatic hyperplasia, unspecified whether lower urinary tract symptoms present Social History Tobacco Use Types Packs/Day Years Used Date Smoking Tobacco: Never Smokeless Tobacco: Never Sex and Gender Information Value Date Recorded Sex Assigned at Male 12/18/2024 11:21 PM EST Legal Sex Male 10:02 PM EDT Gender Identity Male 12/18/2024 11:21 PM EST Sexual Orientation Straight 12/18/2024 11 :21 PM EST documented as of this encounter Plan of Treatment Upcoming Encounters Date Type Department Care Team (Late st Contact Info) Description 12/27/2025 10:00 AM EST Office Visit [facility] [address]rd Floor, [address] [place], [place] [id number] Jeannine Arambula DNP [address] [facility], [address] [place] [address] 06/26/2026 10:20 AM EDT Office Visit [facility] [address] [place] [address] 3rd Floor, [address] [place] [address] Anjum Negreet MD [address] [facility], [address] [place] [address] [email or web address] documented as of this encounter Results * PSA (screening) (11/23/2021 8:19 AM EST) PSA 1.86 0 - 4.00 ng/mL [facility] Blood 11/23/2021 8:19 AM EST 11/23/2021 8:25 AM EST [facility] Final R esult [address] [address] * 25-OH vitamin D (11/23/2021 8:19 AM EST) 25 OH VIT D (TOTAL) 33 30 - 60 ng/mL [facility] Blood 11/23/2021 8:1 9 AM EST 11/23/2021 8:25 AM EST [facility] Final R esult [address] [address] * TSH (11/23/2021 8:19 AM EST) TSH 2.25 0.27 - 4.20 uIU/mL [facility] Blood 11/23/2021 8:19 AM EST 11/23/2021 8:25 AM EST us Toni Piedra DO LAB BLOOD ORDERABLES Final R esult Performing Organization Address [facility] Co de Phone Number [address] [address] * Glucose (11/23/2021 8:19 AM EST) GLUCOSE 93 70 - 99 mg/dL [facility] Blood 11/23/2021 8:19 AM EST 11/23/2021 8:25 AM EST us Toni Piedra DO LAB BLOOD ORDERABLES Final R ult Performing Organization Address [facility] de Phone Number [address] [address] * (ABNORMAL) Lipid panel (11/23/2021 8:19 AM EST) HDL 42 mg/dL [facility] Comment: Interpretation <40 mg/dL: Low HDL cholesterol (major risk factor for CHD) Greater than or equal to 60 mg/dL: High HDL cholesterol ( negative risk factor for CHD) HDL - cholesterol is affected by a number of factors, e.g. smoking, excerise, hormones, sex and age. CHOLESTEROL 199 0 - 240 mg/dL [facility] TRIGLYCERIDES 165(H) 30 - 160 mg/dL [facility] LDL 124 50 - 129 mg/dL [facility] Comment: LDL levels in terms of risk for coronary heart disease: <100 mg/dL: Optimal 100-129 mg/dL: Near or above optimal 130-159 mg/dL: Borderline high 160-189 mg/dL: High >190 mg/dL: Very High CARDIAC RISK RATIO 4.7 3.4 - 5.0 [facility] Blood 11/23/2021 8:19 AM EST 11/23/2021 8:25 AM EST us Toni Piedra DO LAB BLOOD ORDERABLES Final R esult Performing Organization Address [facility] Co de Phone Number [facility] [address] [place] [address] * CBC and differential (11/23/2021 8:19 AM EST) WBC 6.23 4.00 - 11.00 K/uL [facility] RBC 4.75 3.90 - 5.69 M/uL [facility] HGB 15.4 12.4 - 17.3 g/dL [facility] HCT 43.3 37.0 - 51.0 % [facility] PLT 223 140 - 430 K/uL [facility] MCV 91.2 78.0 - 97.0 fL [facility] MCH 32.4 25.0 - 33.0 pg [facility] MCHC 35.6 32.0 - 36.0 g/dL [facility] RDW 12.5 11.0 - 15.0 % [facility] MPV 9.9 8.4 - 12.8 fl [facility] NRBC 0.00 0 /100 WBCs [facility] ABSOLUTE NRBC 0.00 0 K/uL [facility] DIFF METHOD Auto [facility] NEUTS 57.1 43.0 - 75.0 % [facility] LYMPHS 27.6 18.2 - 47.4 % [facility] MONOS 10.4 4.00 - 11.00 % [facility] EOS 3.9 0.0 - 8.0 % [facility] BASOS 0.5 0.0 - 2.0 % [facility] Granulocytes, immature (%) 0.5 0.0 - 0.9 % [facility] ABSOLUTE NEUTS 3.56 1.80 - 7.70 K/uL [facility] ABSOLUTE LYMPHS 1.72 1.00 - 3.10 K/uL [facility] ABSOLUTE MONOS 0.65 0.20 - 0.80 K/uL [facility] ABSOLUTE EOS 0.24 0.00 - 0.80 K/uL [facility] ABSOLUTE BASOS 0.03 0.00 - 0.09 K/uL [facility] Granulocytes, immature 0.03 0.00 - 0.05 K/uL [facility] Blood 11/23/2021 8:19 AM EST 11/23/2021 8:25 AM EST us Toni Piedra DO LAB BLOOD ORDERABLES Final R esult [facility] [address] [place] [address] documented in this encounter Visit Diagnoses Diagnosis Hypertension, unspecified type- Primary Screening for prostate cancer Special screening for malignant neoplasm of prostate Routine general medical examination at a health care facility Pure hypercholesterolemia Non morbid obesity due to excess calories Benign prostatic hyperplasia, unspecified whether lower urinary tract symptoms present documented in this encounter Care Teams Bag Sorter Relationship Specialty Start Date End Date Toni Piedra DO [address] [place] [address] PCP - General Internal Medicine 07/06/20 12/18/24 Benoit Burris MD [address] [place] [address] PCP - General Internal Medicine 12/19/24 documented as of this encounter Additional Source Comments The information contained in this document represents components of the legal health record. It is not the complete legal health record.[facility]
--- OUTSIDE RECORDS SUMMARY | 2025-07-19 10:35 | XMS_ITS | Encounter Summary ---
Author Organization [facility] Address [address] [place] [address] Phone Care Team Providers Care Dermatology Sales Representative Name Role Phone Toni Piedra DO Primary Care Provider [phone] Benoit Burris MD Primary Care Provid er Encounter Details Date Type Department Care Team (Late st Contact Info) Description 06/22/2024 Procedure Pass Echo Lab [facility] [place] [address] Social History Tobacco Use Types Packs/Day Years Used Date Smoking Tobacco: Never Smokeless Tobacco: Never Education Answer Date Recorded Are you interested in more education? Not on hawa e 03/11/2023 Are you concerned about learning? Not on file 03/11/2023 No 03/11/2023 No 03/11/2023 Digital Access Answer Date Recorded No 04/11/2023 No 04/11/2023 Reliable internet access at home? Not on file 04/11/2023 Device with a working camera? Not on file Sex and Gender Information Value Date Recorded Sex Assigned at Male 12/18/2024 11:21 PM EST Legal Sex Male 10:02 PM EDT Gender Identity Male 12/18/2024 11:21 PM EST Sexual Orientation Straight 12/18/2024 11 :21 PM EST documented as of this encounter Plan of Treatment Upcoming Encounters Date Type Department Care Team (Late st Contact Info) Description 12/27/2025 10:00 AM EST Office Visit [facility] [address], [address] [place] [address] Jeannine Arambula DNP [address] [facility], [address] [address] 06/26/2026 10:20 AM EDT Office Visit [facility] [address] [facility] 3[address] Floor, [address] [place] [address] Anjum Negrete MD [address] [facility], [address] [address] documented as of this encounter Visit Diagnoses Not on filedocumented in this encounter Care Teams Dermatology Sales Representative Relationship Specialty Start Date End Date Toni Piedra DO [address] [place] [address] PCP - General Internal Medicine 07/06/20 12/18/24 Benoit Burris MD [address] [place] [address] [address] PCP - General Internal Medicine 12/19/24 documented as of this encounter Additional Source Comments The information contained in this document represents components of the legal health record. It is not the complete legal health record.[facility]
--- OUTSIDE RECORDS SUMMARY | 2025-07-19 10:35 | XMS_ITS | Encounter Summary ---
Author Organization [facility] Address [address] [facility] [address] [place] [address] Phone Care Team Providers Care Biochemistry Professor Name Role Phone Benoit Burris MD Primary Care Provid er Reason for Referral * MRI/CAT Scan - Closed Specialty Diagnoses / Procedures Referred By Chris llanos Referred To Contact Radiology Diagnoses Precordial pain Procedures NC Myocardial Perfusion Pharmacologic Stress Multiple NC Myocardial Perfusion Exercise Multiple Anjum Negrete MD Phone: tel: fax: [email or web address] Referral ID Status Reason Start Date Expiration Date Visits Re quested Visits Authorized [id number] Closed 01/21/2025 03/21/2025 1 1 Encounter Details Date Type Department Care Team (Latest Contact Info) Description 01/22/2025 Ancillary Orders [facility] [address] [place] [address] 3rd Floor, [address] [place] [address] Anjum Negrete MD [address] [facility], [address] [place] [address] [email or web address] Precordial pain (Primary Dx); Other chest pain; Primary hypertension; Aneurysm of ascending aorta without rupture Social History Tobacco Use Types Packs/Day Years [...] with a working camera? Not on file Intimate Partner Violence Answer Date R ecorded Are you denied basic needs s uch as food, clothing, or medical care? No 12/18/2024 In the past 12 months have y ou been in a relationship with a person who hurts, threatens, or tries to control you? No 12/18/2024 Are you denied basic needs s uch as food, clothing, or medical care? No 12/18/2024 In the past 12 months have y ou been in a relationship with a person who hurts, threatens, or tries to control you? No 12/18/2024 Sex and Gender Information Value Date Recorded Sex Assigned at Male 12/18/2024 11:21 PM EST Legal Sex Male 10:02 PM EDT Gender Identity Male 12/18/2024 11:21 PM EST Sexual Orientation Straight 12/18/2024 11 :21 PM EST documented as of this encounter Plan of Treatment Upcoming Encounters Date Type Department Care Team (Late st Contact Info) Description 12/27/2025 10:00 AM EST Office Visit [facility] [address] [place] [address], [address] [address] Jeannine Arambula DNP [address] [place] [address] 06/26/2026 10:20 AM EDT Office Visit [address] 3rd Floor, [address] [place] [address] Anjum Negrete MD [address] [place] [address] documented as of this encounter Results * NC Myocardial Perfusion Pharmacologic Stress Multiple (01/22/2025 9:07 AM EDT) Max Predicted Heart Rate 146 bpm Stress/rest perfusion ratio 0.79 Nuc Stress EF 49 % SNMDIAVOL 117.0 mL SNMSYSVOL 60.0 mL Nuc Rest EF 46 % RNMDIAVOL 130.0 mL RNMSYSVOL 70.0 mL Anatomical Region Laterality Modality Heart, Vascular Ultrasound Narrative 01/22/2025 2:49 PM EDT Normal study. There is no evidence of myocardial infarction or ischemia. Normal LV size and function with no regional wall motion abnormalities. Very low likelihood of hemodynamically significant coronary artery disease. Low risk study for myocardial events or cardiac in the next two years. Compared to prior study no change. ECG STRESS REPORT: JAMES PROTOCOL CONVERTED TO A WALKING REGADENOSON STUDY BMI: 38.02 The Nuclear Stress test began as a James protocol however changed to a walking pharmacological study due to fatigue. Pedro Kapoor received 0.4 mg of Regadenoson after walking on the treadmill for 6:11 minutes. Regadenoson was given IV push over 10 seconds as per protocol by Alanis Moya (ANGELIKA), immediately followed by injection of Tc99m Sestamibi by Stephen Oneill, the chief medical technologist. 1. EKG: Baseline EKG showed sinus rhythm. Following administration of lexiscan there were no ECG changes meeting criteria for ischemia 2. SYMPTOMS: No chest pain and no symptoms concerning for angina. 3. PHYSIOLOGY: Resting HR was 56 bpm. After Lexiscan injection, HR 115 bpm. Blood pressure: 132/80 at rest, 180/90 following administration of lexiscan, and 140/86 on discharge from stress lab. 4. ARRHYTHMIAS: Occasional isolated PACs. Conclusion: ECG portion of nuclear stress test showed no ECG changes meeting strict criteria for ischemia and patient had no symptoms concerning for angina. Nuclear images pending and will be reported separately. See attached stress report for full details. Alanis Moya NP ___ NUCLEAR REPORT: TYPE OF STUDY: Myocardial Perfusion Imaging after a Walking Regadenoson protocol with gated SPECT. PROTOCOL USED: One day Regadenoson rest-stress protocol in the supine and prone position. Images were obtained in gated tomographic technique. Images were processed in SPECT format, reconstructed tomographically and compared [id number] in short axis, horizontal long axis and vertical long axis. DOSE: Technetium 99m Sestamibi 7.2 mCi injected intravenously in the right arm antecubital vein at rest on 01/22/2025 with post injection scan time of 60 minutes. Technetium 99m Sestamibi 22.0 mCi injected intravenously in the right arm antecubital vein after Regadenoson infusion on 01/22/2025 with post injection scan time of 40 minutes. Overall image quality is good. Diaphragmatic attenuation is present. No motion artifact is present. Stress Function Defect Left ventricular global function is normal during stress. Stress ejection fraction is 49%. The stress end diastolic cavity size is normal. Stress end diastolic size: 117.0 mL. The stress end systolic cavity size is normal. Stress end systolic size: 60.0 mL. Rest Function Defect Left ventricular global function is normal at rest. Resting ejection fraction was 46%. The rest end diastolic cavity size is normal. Rest end diastolic size: 130.0 ml. The rest end systolic cavity size is normal. Rest end systolic size: 70.0 mL. Nuclear Prior Study There is a prior study available for comparison that was performed on 04/27/2022. Nuclear Ancillary Finding There is no evidence of transient ischemic dilation (TID). The TID ratio is 0.79, which is normal. Perfusion Scoring Resting Summed Score: 5 Percent Normal: 7.35% Moderate count reduction in the following segments: basal inferolateral. Mild count reduction in the following segments: apical septal, apical inferior and apical lateral. All other segments are normal. SUPINE IMAGING STRESS Perfusion Scoring Stress Summed Score: 3 Percent Normal: 4.41% Moderate count reduction in the following segments: mid inferolateral. Mild count reduction in the following segments: basal inferolateral. All other segments are normal. SUPINE IMAGING STRESS Perfusion Scores: SRS Score: 5 Percentage Abnormal: 7.35% Perfusion Scores: SSS Score: 3 Percentage Abnormal: 4.41% Perfusion Scores: SDS Score: N/A Percentage Abnormal: N/A Procedure Note Adonis Marina MD - 01/22/2025 Normal study. There is no evidence of myocardial infarction or ischemia. Normal LV size and function with no regional wall motion abnormalities. Very low likelihood of hemodynamically significant coronary arterydisease. Low risk study for myocardial events or cardiac in the next twoyears. Compared to prior study no change. us Anjum Negrete MD CV NM CARDIAC Final Result documented in this encounter Visit Diagnoses Diagnosis Precordial pain- Primary Precordial pain- Primary Other chest pain Primary hypertension Unspecified essential hypertension Aneurysm of ascending aorta without rupture documented in this encounter Care Teams Biochemistry Professor Relationship Specialty Start Date End Date Benoit Burris MD [address] [place] [address] PCP - General Internal Medicine 12/19/24 documented as of this encounter Additional Source Comments The information contained in this document represents components of the legal health record. It is not the complete legal health record.[facility]
--- OUTSIDE RECORDS SUMMARY | 2025-07-19 10:35 | XMS_ITS | Encounter Summary ---
Author Organization [facility] Address [address] [facility] [address] [place] [address] Phone Care Team Providers Care Manager Telemetry Name Role Phone Toni Piedra DO Primary Care Provider [phone] Benoit Burris MD Primary Care Provid er Encounter Details Date Type Department Care Team (Late st Contact Info) Description 11/04/2022 Procedure Pass Echo Lab [address] [place] [address] Social History Tobacco Use Types Packs/Day Years [...] Description 12/27/2025 10:00 AM EST Office Visit [facility] [address] [facility], [address] [place] [id number] Jeannine Arambula DNP [address] [facility], [address] [address] 06/26/2026 10:20 AM EDT Office Visit [facility] [address] [place] [address] [address] [facility], [address] [place] [address] Anjum Negrete MD [address] [address] [email or web address] documented as of this encounter Visit Diagnoses Not on filedocumented in this encounter Care Teams Manager Telemetry Relationship Specialty Start Date End Date Toni Piedra DO [address] [place] [address] PCP - General Internal Medicine 07/06/20 12/18/24 Benoit Burris MD [address] [place] [address] PCP - General Internal Medicine 12/19/24 documented as of this encounter Additional Source Comments The information contained in this document represents components of the legal health record. It is not the complete legal health record.[facility]
--- OUTSIDE RECORDS SUMMARY | 2025-07-19 10:35 | XMS_ITS | Clinical Summary ---
Author Organization [facility] Address [address] [employer] [facility] [address] [place] [address] Phone Care Team Providers Care Mixing Place Supervisor Name Role Phone Benoit Burris MD Primary Care Provid er Allergies Active Allergy Reactions Criticality Noted Date Comments Hydrochlorothiazide 10/18/2022 Other reaction(s): rise in uric acid level Medications aspirin 81 mg chewable tablet Take 81 mg by mouth daily. Active multivitamins-m inerals-folic unem-edbvmqb-zx tein (COMPLETE SENIOR) 0.4-300-250 mg-mcg-mcg Tab Take 1 tablet by mouth daily. Active cholecalciferol (VITAMIN D3) 25 MCG (1,000 unit) tablet Take 1,000 Units by mouth daily. Active omega 9-asx-yqw-fish oil 1,000 mg (120 mg-180 mg) Cap Take 1 capsule by mouth daily. Active furosemide (LASIX) 40 MG tablet Take 80 mg by mouth daily. 05/24/20 23 Active diclofenac sodium (VOLTAREN) 75 MG EC tablet Take 75 mg by mouth as needed. Active losartan (COZAAR) 100 MG tablet Take 100 mg by mouth daily. Active colchicine (COLCRYS) 0.6 mg tablet Take 0.6 mg by mouth as needed. 10/23/20 24 Active atenolol (TENORMIN) 50 mg tablet TAKE 1 AND 1/2 TABLETS BY MOUTH DAILY 135 tablet 3 05/13/20 25 Active omeprazole (PRILOSEC) 20 MG capsule Take 1 capsule by mouth every morning. 04/28/20 25 Active peak flow meter Palma by See Administration Instructions route once. 025 Discontin ued(No longer taking) allopurinol (ZYLOPRIM) 300 MG tablet Take 1 tablet by mouth every morning. 10/23/20 24 025 Discontin ued(No longer taking) inhaler spacing device (AEROCHAMBER,BR EATHERITE) SpcrIndications :Acute bronchitis, unspecified organism,Acute cough Inhale 1 each into the lungs every 4 (four) hours as needed (use with albuterol inhaler). 1 each 04/16/20 025 Discontin ued(No longer taking) Active Problems Problem Noted Date Diagnosed Date Dyslipidemia 02/15/2022 Overview (02/15/2022): LDL 124 and HDL 42 as of 11/23/2021 Assessment & Plan (03/09/2022 10:18 AM EDT): Discussed given ASCVD risk score. Consider statin therapy. My recommendation is for rosuvastatin 10 mg daily. Assessment & Plan (02/15/2022 9:12 AM EDT): Acceptable lipid panel profile given cardiac hx of HTN. -encourage dietary and lifestyle changes to optimize CV risk factors. HTN (hypertension) 07/06/2020 Assessment & Plan (11/04/2022 8:05 AM EST): His blood pressure is well controlled today 116/80. He is on enalapril-hydrochlorothiazide, atenolol and his amlodipine was increased to 10 mg daily. He is doing well on these medications and will continue these. We did discuss weight loss today and him to start exercising. He is also asked to follow heart healthy diet including low sodium. Due to his recent echocardiogram showing aortic root, ascending and transverse aorta are dilated measuring up to 38 mm, 46 mm and 40 mm. We will repeat an echocardiogram in 6 months. We discussed good blood pressure control with SBP goal less than 130/80. We will see him in follow-up after his echocardiogram is completed in 6 months Assessment & Plan (04/28/2022 9:01 AM EDT): Blood pressure has improved and is 140/82. SBP goal 130/88. He is on atenolol 50 mg daily, he was started on enalapril-hydrochlorothiazide 10-25 mg twice daily. He is tolerating this medication well we will continue on the current medication regimen without change. I have asked him to really look at his diet following a heart healthy diet including low-sodium. I did give him a suggestion as to use Mrs. Tariq instead of using salt. I have also encouraged him to start exercising and to lose weight which may also help his blood pressure without having to increase his blood pressure medication. He will continue to check his blood pressures at home and let us know if his blood pressures remain elevated requiring more medication. He will try lifestyle changes as well. He has an echocardiogram scheduled for October and we will see him in follow-up after that. Assessment & Plan (03/09/2022 10:16 AM EDT): Blood pressure not at goal. Uncertain why patient has been taking 80 mg of furosemide daily. Patient reports this was started by primary care for lower extremity edema. This does seem like a high dosage of Lasix and I do not have a history of congestive heart failure to go with this. His BMP was within normal limits and his creatinine and EGFR within the normal range. We have made a shared decision to discontinue his furosemide as a daily regimen and switch his lisinopril to a combination of enalapril and hydrochlorothiazide as an antihypertensive regimen and for benefits regarding his lower extremity edema. Patient can keep his furosemide for as needed use. We discussed that he should not take both his lisinopril and furosemide with his new antihypertensive medication of enalapril/hydrochlorothiazide at the same time. - stop lasix 80 mg. - stop lisinopril 10 mg. - start vaseretic 10/25 mg. - watch salt in diet. - monitor for red flag symptoms and call the office as discussed. - discussed weight loss for reducing his ASCVD risk score. Information on [employer] weight management program given. - discussed statin therapy should lifestyle and dietary modifications continue to prove ineffective on their own to improve ASCVD risk score. - return 3-4 weeks for recheck and medication mangement Assessment & Plan (02/15/2022 9:09 AM EDT): -Start lisinopril 10 mg daily. -BMP just prior to follow-up visit -Discussed side effects and red flag symptoms -Continue dietary and lifestyle modifications -monitor BP for highs and lows Encounters Date Type Department Care Team Description 06/26/2025 10:00 AM EDT Office Visit [facility] [address] [place] [address] 3rd Floor, [address] [place] [address] Anjum Negrete MD Aneurysm of ascending aorta without rupture (Primary Dx); Primary hypertension 06/20/2025 8:10 AM EDT - 06/20/2025 11:59 PM EDT Hospital Encounter Echo Lab [address] [place] [address] Anjum Negrete MD Discharge Disposition: Home or Self Care 05/10/2025 Refill [facility] [address] [place] [address] 3rd Floor, [address] [place] [address] Anjum Negrete MD Medication Refill 06/22/2024 Procedure Pass Echo Lab [address] [place] [address] from Last 3 Months Social History Tobacco Use Types Packs/Day Years Used Date Smoking Tobacco: Never Smokeless Tobacco: Never Tobacco Cessation:Counseling Given: Not Answered Education Answer Date Recorded Are you interested [...] Orientation Straight 12/18/2024 11 :21 PM EST Last Filed Vital Signs Vital Sign Reading Time Taken Comments Blood Pressure 132/86 06/26/2025 9:50 AM EDT Pulse 61 06/26/2025 9:50 AM EDT Temperature 36.4 C (97.5 F) 04/16/2025 12:26 PM EDT Respiratory Rate 16 04/16/2025 12:26 PM EDT Oxygen Saturation 96% 06/26/2025 9:50 AM EDT Inhaled Oxygen Concentration - - Weight 109.3 kg (241 lb) 06/26/2025 9:50 AM EDT Height 177.8 cm (5' 10 ) 06/26/2025 9:50 AM EDT Body Mass Index 34.58 06/26/2025 9:50 AM EDT Plan of Treatment Upcoming Encounters Date Type Department Care Team (Late st Contact Info) Description 12/27/2025 10:00 AM EST Office Visit [facility] [address] 3rd [facility], [address] [place] [address] Jeannine Arambula DNP [address] [place] [address], [address] [address] 06/26/2026 10:20 AM EDT Office Visit [facility] [address] 3[address] Floor, [address] [place] [address] Anjum Negrete MD [address] [place] [address], [address] [address] Health Maintenance Due Date Last Done Comments Adult Td,Tdap Booster 1950 DEPRESSION SCREENING 1962 HEPATITIS C SCREENING 1968 COLOGUARD 1995 COLONOSCOPY 1995 COLORECTAL CANCER SCREENING 1995 FIT TEST 1995 FOBT 1995 SIGMOIDOSCOPY 1995 VIRTUAL COLONOSCOPY 1995 LIPID PANEL 11/23/2022 11/23/2021 INFLUENZA VACCINE (#1) 2025 , 09/13/2023, 09/09/2022, Additional history exists COVID-19 VACCINE ( season) 2025 08/08/2024, 10/18/2023, 09/09/2022, Additional history exists CREATININE LEVEL 12/18/2025 12/18/2024, , 07/06/2020 POTASSIUM LEVEL 12/18/2025 12/18/2024, 02/13, 07/06/2020 BLOOD PRESSURE 12/27/2025 06/26/2025 ZOSTER VACCINES Completed 02/04/2023, 03/04/2022 PNEUMOCOCCAL VACCINES (50+ years) Completed 11/17/2023, 08/10/2020 RSV VACCINE Completed 11/17/2023 SMOKING STATUS SCREENING (Once After 26 Yrs) Completed 06/26/2025 HEPATITIS A VACCINES Aged Out No long er eligible based on patient's age to complete this topic HIB VACCINES Aged Out No longer eligi ble based on patient's age to complete this topic MENINGOCOCCAL VACCINES (ACWY) Aged Out No longer eligible based on patient's age to complete this topic MENINGOCOCCAL VACCINES (B) Aged Out N o longer eligible based on patient's age to complete this topic Medical Devices Not on file Procedures Procedure Name Priority Date/Time Associated Diagnosis Comments TTE COMPREHENSIVE Routine 06/20/2025 9:1 3 AM EDT Aneurysm of ascending aorta without rupture BASIC METABOLIC PANEL STAT 12/18/2024 11:48 PM EST LIPID PANEL Routine 11/23/2021 8:19 AM EST Hypertension, unspecified type Routine general medical examination at a health care facility Pure hypercholesterolemi a Non morbid obesity due to excess calories Benign prostatic hyperplasia, unspecified whether lower urinary tract symptoms present from Last 3 Months or Most Recently Relevant to Health Maintenance Results * TTE COMPREHENSIVE (06/20/2025 9:13 AM EDT) Height 178 cm Weight 109 kg Systolic BP 130 mmHg Diastolic BP 80 mmHg Interventricular Septum Thickness 13 6 - 11 mm Left Ventricle Internal Diameter End Diastole 43 42 - 58 mm Left Ventricle Internal Diameter End Systole 33 <40 mm Left Ventricular Outflow Tract Diameter 24.0 mm Left Ventricular Posterior Wall Thickness 10 6 - 11 mm Left Ventricle Ea Lateral Wave Speed 5.4 cm/s Left Ventricle Ea Septal Wave Speed 4.8 cm/s Ejection Fraction 55 50 - 75 Percent Left Atrium Dimension Anterior-Posterior 40 15 - 40 mm Aortic Valve Mean Gradient 7 mmHg Aortic Valve Mean Gradient 7 mmHg Aortic Valve Time Velocity Integral 430.0 mm Aortic Valve Peak Velocity 1.8 m/s Aortic Valve Peak Gradient 13 mmHg Aortic Arch Diameter 30 mm Aortic Sinus Diameter 39 <40 mm Ascending Aorta Diameter 43 <36 mm Inferior Vena Cava Diameter 19 <21 mm Mitral Valve Deceleration Time 380 ms Left Ventricle A Wave Speed 74.6 cm/s Left Ventricle E Wave Speed 46.7 cm/s Pulmonary Valve Peak Velocity 1.2 m/s Pulmonary Valve Peak Gradient 6 mmHg Right Ventricle Basal Diameter 39 25 - 41 mm Tricuspid Valve Peak Velocity 2.2 m/s Raw LV EF% 41 % MV E/E' Tissue Velocity Lateral 8.65 Relative Wall Thickness 0.47 0.22 - 0.42 MV E/A ratio 0.6 MV E/e' septal 9.73 Left Ventricle E/e' Average 9.2 Aortic Valve Prosthetic Peak Gradient 13 mmHg Aorta Sinus Index by Height 2.19 cm/m Aorta Sinus CSA index by Height 6.71 cm2/m Asc Aorta CSA Index by Height 8.15 cm2/m Right Ventricle to Right Atrium Pressure Gradient 19 mmHg Right Ventricle Peak Systolic Pressure (Assuming RAP 10) 29 mmHg MGB CV ECHO TV RVSP (ASSUMING RAP OF 5) 24 mmHg RVSP (Exclusive of RAP) 19 mmHg Pulmonic Valve Prosthetic Peak Gradient 6 mmHg Echo E/Ea 9.73 Body Surface Area 2.26 m2 Right Ventricle Peak Systolic Pressure 22 mmHg Left Ventricle indexed to BSA 76.8 g/m2 LVOT VTI REST 21.0 cm Aortic Valve Sinus Index by BSA 17 mm/m2 Ascending Aorta Index 19 mm/m2 Right Atrium Pressure Estimated 3 mmHg Ascending Aorta Index 19 mm Aortic Sinus Index 17 mm Ascending Aorta Diameter 19 mm Aortic Valve Sinus Index 1 17 20 - 32 mm AO ASC DIAM BSA INDEX 19.03 Anatomical Region Laterality Modality Heart Ultrasound Narrative 06/20/2025 11:51 AM EDT Images from the original result were not included. 1. The indication for the study is aortic aneurysm. Left ventricular thickness is upper limits of normal the left ventricular ejection fraction is 55 to 60% and diastolic function is normal. 2. Normal RV size and function. 3. There is a mildly calcified trileaflet aortic valve without significant aortic stenosis. The mean gradient is only 7 mmHg. The ascending aortic root is dilated at 43 mm. 4. Trace mitral and trace tricuspid insufficiency, there is mild mitral annular calcification. 5. Normal pericardium and when compared to the prior echocardiogram that was done on May 03, 2024, the aortic root size on this study is 43 mm where it was 45 mm on the prior study. Left Ventricle The left ventricle is normal in size. There is LV hypertrophy with upper septal predominance. There is borderline concentric hypertrophy. The interventricular septal thickness is 13 mm. The LV posterior wall thickness is 10 mm. There is normal left ventricular systolic function. The LV ejection fraction is 55% (calculated via biplane measurement). LV diastolic function appears within normal limits for age. The E wave velocity is 46.7 cm/s. The A wave velocity is 74.6 cm/s. The E/A ratio is 0.6. The e' septal wave velocity is 4.8 cm/s. The e' lateral wave velocity is 5.4 cm/s. The average E/e' ratio is 9.2. Right Ventricle The right ventricle is normal in size. There is normal right ventricular systolic function. Left Atrium The left atrium is normal in size. Right Atrium The IVC is normal in size. Mitral Valve There is mild thickening of the anterior mitral leaflet. There is no mitral stenosis. There is trace mitral regurgitation. Tricuspid Valve The tricuspid valve appears normal. There is no tricuspid stenosis. There is trace tricuspid regurgitation. The RV systolic pressure was calculated at 22 mmHg (using TR peak velocity of 2.2 m/s and assuming an RA pressure of 3 mmHg). Aortic Valve The aortic valve is tricuspid. There is aortic sclerosis without significant stenosis. The peak and mean aortic valve gradients are 13 mmHg and respectively. There is trace aortic regurgitation. The aortic sinuses are mildly dilated. The ascending aorta is mildly dilated. The ascending aortic diameter is 43 mm. Pulmonic Valve The pulmonic valve appears normal. There is no pulmonic stenosis. There is trace pulmonic regurgitation. Pericardium There is a pericardial fat pad. There is no pericardial effusion. General Findings The image quality was adequate. Technique(s) used in the evaluation: Multiplane, Color flow Doppler and Spectral Doppler. The predominant rhythm during the study was sinus. Comparison Findings Compared to prior TTE on 05/03/2024, IAS/IVS The interatrial septum appears thickened consistent with lipomatous hypertrophy (normal variant). There is no evidence of patent foramen ovale (PFO). Anjum Negrete MD CV ECHO ORDERABLES Final Resu lt * (ABNORMAL) Basic metabolic panel (12/18/2024 11:48 PM EST) SODIUM 142 133 - 146 mmol/L [facility] CHLORIDE 101 96 - 108 mmol/L [facility] POTASSIUM 3.2(L) 3.3 - 5.1 mmol/L [facility] Comment:Specimen slightly he molyzed, result may be falsely elevated. CO2 27 21 - 35 mmol/L [facility] BUN 20(H) 6 - 19 mg/dL [facility] CREATININE 1.10 0.5 - 1.5 mg/dL [facility] GLUCOSE 110(H) 70 - 99 mg/dL [facility] CALCIUM 9.0 8.4 - 10.3 mg/dL [facility] EGFR 70 >59 mL/min/1.7 3m2 [facility] Comment:Estimated glomerular filtration rate calculated using the CKD-EPI refit equation. ANION GAP 17 10 - 20 mmol/L [facility] Blood 12/18/2024 11:4 8 PM EST 12/18/2024 11:52 PM EST us Gabriella Washington MD LAB BLOOD ORDERABLES Final R esult [facility] [address] [place] [address] * (ABNORMAL) Lipid panel (11/23/2021 8:19 AM EST) HDL 42 mg/dL [facility] Comment: Interpretation <40 mg/dL: Low HDL cholesterol (major risk factor for CHD) Greater than or equal to 60 mg/dL: High HDL cholesterol ( negative risk factor for CHD) HDL - cholesterol is affected by a number of factors, e.g. smoking, excerise, hormones, sex and age. CHOLESTEROL 199 0 - 240 mg/dL [facility] TRIGLYCERIDES 165(H) 30 - 160 mg/dL [facility] LDL 124 50 - 129 mg/dL [facility] Comment: LDL levels in terms of risk for coronary heart disease: <100 mg/dL: Optimal 100-129 mg/dL: Near or above optimal 130-159 mg/dL: Borderline high 160-189 mg/dL: High >190 mg/dL: Very High CARDIAC RISK RATIO 4.7 3.4 - 5.0 [facility] Blood 11/23/2021 8:19 AM EST 11/23/2021 8:25 AM EST us Toni Piedra DO LAB BLOOD ORDERABLES Final R esult [facility] [address] [place], [place] [id number] from Last 3 Months or Most Recently Relevant to Health Maintenance Insurance [employer] H[place] BLUE REPLACEMENT MEDICARE PART A & [place] [address] [place] [address] MEDICARE HMO BLUE REPLACEMENT MEDICARE PART A & B [facility] MEDICARE HMO [place] [address] [place] [address] MEDICARE HMO BLUE REPLACEMENT MEDICARE PART A [place] [address] [place] [address] MEDICARE HMO BLUE REPLACEMENT MEDICARE HMO BLUE REPLACEMENT MEDICARE PART A & B MEDICARE HMO BLUE REPLACEMENT MEDICARE PART A & B [employer] [place] MED[place] H[place] BLUE REPLACEMENT MEDICARE PART A & B Care Teams Mixing Place Supervisor Relationship Specialty Start Date End Date Benoit Burris MD [address] [place] [phone] (work) PCP - General Internal Medicine 12/19/24 Additional Source Comments The information contained in this document represents components of the legal health record. It is not the complete legal health record.[facility]
--- OUTSIDE RECORDS SUMMARY | 2025-07-19 10:35 | XMS_ITS | Encounter Summary ---
Author Organization [facility] Address [address] [place] [address] Phone Care Team Providers Care Vice Chancellor Name Role Phone Toni Piedra DO Primary Care Provider [phone] Benoit Burris MD Primary Care Provid er Encounter Details Date Type Department Care Team (Late st Contact Info) Description 06/09/2023 Procedure Pass [facility] [place] [place] [address] Social History Tobacco Use Types Packs/Day Years [...] Description 12/27/2025 10:00 AM EST Office Visit [facility] [address], [address] [place] [address] Jeannine Arambula DNP 22 [facility], [address] [address] 06/26/2026 10:20 AM EDT Office Visit [facility] 22 [facility] 3rd Floor, [address] [place] [address] Anjum Negrete MD 22 [facility], [address] [address] documented as of this encounter Visit Diagnoses Not on filedocumented in this encounter Care Teams Vice Chancellor Relationship Specialty Start Date End Date Toni Piedra DO [address] [place] [address] PCP - General Internal Medicine 07/06/20 12/18/24 Benoit Burris MD [address] [place] [address] [address] PCP - General Internal Medicine 12/19/24 documented as of this encounter Additional Source Comments The information contained in this document represents components of the legal health record. It is not the complete legal health record.[facility]
--- OUTSIDE RECORDS SUMMARY | 2025-07-19 10:35 | XMS_ITS | Encounter Summary ---
Author Organization [facility] Address [address] [place] [address] Phone Care Team Providers Care Impress Associate Name Role Phone Benoit Burris MD Primary Care Provid er Encounter Details Date Type Department Care Team (Late st Contact Info) Description 12/19/2024 Procedure Pass [facility], Ct Scan - [facility] [address] [place] [address] Social History Tobacco Use Types Packs/Day Years [...] Description 12/27/2025 10:00 AM EST Office Visit [facility] [address] 3rd Floor, [address] [place] [address] Jeannine Arambula DNP [address] [place] [address] 06/26/2026 10:20 AM EDT Office Visit [address] 3rd [facility], [address] [place] [address] Anjum Negrete MD [address] [place] [address], [address] [address] documented as of this encounter Visit Diagnoses Not on filedocumented in this encounter Care Teams Impress Associate Relationship Specialty Start Date End Date Benoit Burris MD [address] [place] [address] [address] PCP - General Internal Medicine 12/19/24 documented as of this encounter Additional Source Comments The information contained in this document represents components of the legal health record. It is not the complete legal health record.[facility]
--- OUTSIDE RECORDS SUMMARY | 2025-07-19 10:35 | XMS_ITS | Encounter Summary ---
Author Organization [facility] Address [address] [place] [address] Phone Care Team Providers Care Contact Acid Plant Operator Helper Name Role Phone Benoit Burris MD Primary Care Provid er Encounter Details Date Type Department Care Team (Late st Contact Info) Description 12/19/2024 Procedure Pass [facility], Ct Scan - [facility] [address] [place] [address] Social History Tobacco Use Types Packs/Day Years [...] Description 12/27/2025 10:00 AM EST Office Visit [facility] [address] 3rd Floor, [address] [place] [address] Jeannine Arambula DNP [address] [place] [address] 06/26/2026 10:20 AM EDT Office Visit [address] 3rd [facility], [address] [place] [address] Anjum Negrete MD [address] [place] [address], [address] [address] documented as of this encounter Visit Diagnoses Not on filedocumented in this encounter Care Teams Contact Acid Plant Operator Helper Relationship Specialty Start Date End Date Benoit Burris MD [address] [place] [address] [address] PCP - General Internal Medicine 12/19/24 documented as of this encounter Additional Source Comments The information contained in this document represents components of the legal health record. It is not the complete legal health record.[facility]
--- OUTSIDE RECORDS SUMMARY | 2025-07-19 10:35 | XMS_ITS | Encounter Summary ---
Author Organization [facility] Address [address] [employer] [facility] [address] [place] [address] Phone Care Team Providers Care Glove Turner Name Role Phone Toni Piedra DO Primary Care Provider Benoit Burris MD Primary Care Provid er Encounter Details Date Type Department Care Team (Late st Contact Info) Description 04/27/2022 Procedure Pass Echo Lab [address] [place] [address] Social History Tobacco Use Types Packs/Day Years [...] Description 12/27/2025 10:00 AM EST Office Visit [facility] [address]ngela [address] 3rd [facility], [address] [place] [phone] Jeannine Arambula DNP 22 [facility], [address] [address] 06/26/2026 10:20 AM EDT Office Visit [facility] [address] [place] [address] 3rd [facility], [address] [place] [address] Anjum Negrete MD [address] [address] [email or web address] documented as of this encounter Visit Diagnoses Not on filedocumented in this encounter Care Teams Glove Turner Relationship Specialty Start Date End Date Toni Piedra DO [address] [place] [id number] PCP - General Internal Medicine 07/06/20 12/18/24 Benoit Burris MD [address] [place] [address] PCP - General Internal Medicine 12/19/24 documented as of this encounter Additional Source Comments The information contained in this document represents components of the legal health record. It is not the complete legal health record.[facility]
== END 2025-07-19 11:14 | disposition home or self-care (01) ==
LOC: HO.HGS 09:48
PROVIDERS: PCP Internal Medicine; Visit Provider Surgery
DX: H02.829 Cysts of unspecified eye, unspecified eyelid (principal)
CPT/HCPCS: 99204

== ENCOUNTER → 2025-07-19 09:47 | Outpatient (BNVA) | payer MEDICARE, SELFPAY | PROVIDERS: PCP Internal Medicine; Visit Provider Surgery | DX: H02.824 Cysts of left upper eyelid (principal) | CPT/HCPCS: 99202 ==

== ENCOUNTER 2025-08-30 13:14 | Outpatient (REF) | payer MEDICARE, SELFPAY | END 2025-08-30 13:15 | disposition home or self-care (01) | LOC: HO.LNP 13:14 | PROVIDERS: PCP Internal Medicine; Visit Provider Surgery | DX: I11.9 Hypertensive heart disease without heart failure (principal); M10.9 Gout, unspecified; H02.824 Cysts of left upper eyelid | CPT/HCPCS: 11441; 88304; 96127; 99212 ==

== ENCOUNTER 2025-08-30 13:14 | Outpatient (AMB) | payer MEDICARE, SELFPAY ==
[2025-08-30 13:21] VITALS: BP 182/96; PULSE 72; BMI 38.3
--- NOTE | 2025-08-30 13:21 | MHC.OFFVIS ---
Vital Signs 08/30/25 13:21 Height 5 ft 8 in Weight 252 lb BMI 38.3 BP 182/96 H Blood Pressure Location Rt brachial Position Sitting Pulse 72 Intake Visit Reasons: Excision cyst upper eyelid Intake Note: Patient here for cyst excision on left upper eyelid. Valet Parking Attendant Required: No Accompanied by: Self / Same As Patient Allergies hydrochlorothiazide Allergy (Unknown, Verified 08/30/25 13:23) Unknown Medication List - Last Reconciled 08/30/25 by Sunny Bhat MD aspirin 81 mg PO DAILY atenolol 75 mg PO DAILY cholecalciferol (vitamin D3) (Vitamin D3) 25 mcg PO DAILY losartan 100 mg PO DAILY xhblobpqoojk-aczbfrnc-cxjjzu 1 tab PO DAILY omega-3 fatty acids 2,000 mg PO DAILY HPI Comments Details: Returns for excision of left eyelid skin cyst [facility] Medical History Morbid obesity with BMI of 40.0-44.9, adult Abscess, eyebrow Gout Tubular adenoma Chronic low back pain Osteochondritis Osteoarthritis BPH (benign prostatic hyperplasia) Mild hypercholesterolemia HTN (hypertension) Surgical History History of colonoscopy (~12/03/20) S/P repair of hydrocele History of cataract surgery Family History Father Congestive heart failure Mother Congestive heart failure Social History Housing: House Alcohol intake: current Alcohol intake frequency: holidays/special occasions only Patient Tobacco Use Status: Never used Tobacco Advance Directives Date on File: 11/15/17 service: No Current occupational status: employed 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 Cognitive needs: No Hearing needs: No Vision needs: Yes (reading glasses) Physical Exam Vital Signs: Last Vital Signs Pulse 72 08/30/25 13:21 BP 182/96 H 08/30/25 13:21 BMI result Body Mass Index 38.3 Office Procedures Excision Details: Preoperative diagnosis: Skin cyst left upper eyelid Postoperative diagnosis: Same Procedure: Excision of skin cyst left upper eyelid Surgeon: Sunny Bhat MD Apprenticeship Consultant: None Anesthesia: Lidocaine 1% with epinephrine Indications for procedure: Enlarging skin cyst located in the lateral left upper eyelid measuring 6 mm in diameter Operative findings: 6 mm skin cyst left upper eyelid Specimen: Skin cyst left upper eyelid Estimated blood loss: 2 mL Complications: None Procedure details: Patient was brought to the procedure room and placed in a supine position. The patient confirmed the site of surgery in the left upper eyelid. After assuring informed consent, the skin was prepped with Betadine and draped in a sterile fashion. Local anesthesia was then infiltrated circumferentially around the skin lesion. Elliptical incision oriented parallel to the eyebrow was then created with a scalpel. This was carried down into the subcutaneous tissue and around the cyst wall. Sharp dissection was used to dissect the skin cyst from the surrounding subcutaneous tissue. This was passed off the table and sent to pathology for further examination. Hemostasis was assured using light pressure. Skin was then closed using interrupted 5 0 nylon sutures. Sterile spot Band-Aid was then applied. The patient tolerated the procedure well. He was discharged to home in stable condition. 51707-Pdfxehyo face/ear/eyelid/nose/lip/mucous membrane 0.6cm-1cm Procedure code (CPT) selection complete Assessment & Plan Assessment & Plan (1) Abscess, eyebrow: Code(s): L02.01 - Cutaneous abscess of face Category: Medical Plan Patient will return in 1 week for suture removal. Coding Level of Care Code Procedure Only Diagnoses Abscess, eyebrow L02.01 CPT Codes Face/Ear/Eyelid/Nose/Lip/Mucous Membrane - CPT: 48093-Phdsvdwq face/ear/eyelid/nose/lip/mucous membrane 0.6cm-1cm ([id number])
--- OUTSIDE RECORDS SUMMARY | 2025-08-30 15:54 | XMS_ITS | Encounter Summary ---
Author Organization [facility] Address [address] [facility] [address] [place] [address] Phone Care Team Providers Care Plug Sorter Name Role Phone Toni Piedra DO Primary Care Provider Benoit Burris MD Primary Care Provid er Encounter Details Date Type Department Care Team (Late st Contact Info) Description 11/04/2022 Procedure Pass Echo Lab [address] [place] [address] Social History Tobacco Use Types Packs/Day Years [...] Description 12/27/2025 10:00 AM EST Office Visit [facility] Ángela Rosario 3rd [facility], [address] [place] [address] [phone] Jeannine Arambula DNP 22 [facility], [address] [address] 06/26/2026 10:20 AM EDT Office Visit [facility] [address] [place] [address] 3rd [facility], [address] [place] [phone] Anjum Negrete MD [address] [address] [email or web address] documented as of this encounter Visit Diagnoses Not on filedocumented in this encounter Care Teams Plug Sorter Relationship Specialty Start Date End Date Toni Piedra DO [address] [place] [phone] PCP - General Internal Medicine 07/06/20 12/18/24 Benoit Burris MD [address] [place] [phone] PCP - General Internal Medicine 12/19/24 documented as of this encounter Additional Source Comments The information contained in this document represents components of the legal health record. It is not the complete legal health record.[facility]
--- OUTSIDE RECORDS SUMMARY | 2025-08-30 15:54 | XMS_ITS | Encounter Summary ---
Author Organization [facility] Address [address] [facility] [address] [place] [address] Phone Care Team Providers Care Race Car Driver Name Role Phone Toni Piedra DO Primary Care Provider Benoit Burris MD Primary Care Provid er Encounter Details Date Type Department Care Team (Late st Contact Info) Description 04/27/2022 Procedure Pass Echo Lab [address] [place] [address] Social History Tobacco Use Types Packs/Day Years [...] Description 12/27/2025 10:00 AM EST Office Visit [facility] Ángela Rosario 3rd [facility], [address] [place] [address] [phone] Jeannine Arambula DNP 22 [facility], [address] [address] 06/26/2026 10:20 AM EDT Office Visit [facility] [address] [place] [address] 3rd [facility], [address] [place] [address] Anjum Negrete MD [address] [address] [email or web address] documented as of this encounter Visit Diagnoses Not on filedocumented in this encounter Care Teams Race Car Driver Relationship Specialty Start Date End Date Toni Piedra DO [address] [place] [phone] PCP - General Internal Medicine 07/06/20 12/18/24 Benoit Burris MD [address] [place] [phone] PCP - General Internal Medicine 12/19/24 documented as of this encounter Additional Source Comments The information contained in this document represents components of the legal health record. It is not the complete legal health record.[facility]
--- OUTSIDE RECORDS SUMMARY | 2025-08-30 15:54 | XMS_ITS | Encounter Summary ---
Author Organization [facility] Address [address] [place] [address] Phone Care Team Providers Care Mail Reader Name Role Phone Toni Piedra DO Primary Care Provider [phone] Benoit Burris MD Primary Care Provid er Encounter Details Date Type Department Care Team (Late st Contact Info) Description 06/09/2023 Procedure Pass Echo Lab [place] [place] [address] Social History Tobacco Use Types Packs/Day Years [...] Description 12/27/2025 10:00 AM EST Office Visit [facility] [address], [address] [place] [address] Jeannine Arambula DNP 22 [facility], [address] [address] 06/26/2026 10:20 AM EDT Office Visit [facility] 22 [facility] 3rd Floor, [address] [place] [address] Anjum Negrete MD 22 [facility], [address] [address] documented as of this encounter Visit Diagnoses Not on filedocumented in this encounter Care Teams Mail Reader Relationship Specialty Start Date End Date Toni Piedra DO [address] [place] [phone] PCP - General Internal Medicine 07/06/20 12/18/24 Benoit Burris MD [address] [place] [address] [address] PCP - General Internal Medicine 12/19/24 documented as of this encounter Additional Source Comments The information contained in this document represents components of the legal health record. It is not the complete legal health record.[facility]
--- OUTSIDE RECORDS SUMMARY | 2025-08-30 15:54 | XMS_ITS | Encounter Summary ---
Author Organization [facility] Address [address] [address] [place] [address] Phone Care Team Providers Care Deputy Clerk Of [address] Name Role Phone Benoit Burris MD Primary Care Provid er Reason for Referral * MRI/CAT Scan - Closed Specialty Diagnoses / Procedures Referred By Chris llanos Referred To Contact Radiology Diagnoses Precordial pain Procedures NC Myocardial Perfusion Pharmacologic Stress Multiple NC Myocardial Perfusion Exercise Multiple Anjum Negrete MD Phone: tel: fax: [email or web address] Referral ID Status Reason Start Date Expiration Date Visits Re quested Visits Authorized [id number] Closed 01/21/2025 03/21/2025 1 1 Encounter Details Date Type Department Care Team (Latest Contact Info) Description 01/22/2025 Ancillary Orders [facility] [address] [place] [address] [address]rd Floor, [address] [place] [address] Anjum Negrete MD 22 [facility], [address] [place] [address] [email or web address] Precordial pain (Primary Dx); Other chest pain; [...] Description 12/27/2025 10:00 AM EST Office Visit [facility] [address] [place] [address], [address] [address] Jeannine Arambula DNP [address] [place] [address] 06/26/2026 10:20 AM EDT Office Visit [address] 3[address] Floor, [address] [place] [address] Anjum Negrete MD [address] [place] [phone] documented as of this encounter Results * [...] of Tc99m Sestamibi by Stephen Oneill, the nuclear physician. 1. EKG: Baseline EKG showed sinus rhythm. [...] in SPECT format, reconstructed tomographically and compared [id number] in short axis, horizontal long axis and [...] rupture documented in this encounter Care Teams Deputy Clerk Of [address] Court Relationship Specialty Start Date End Date Benoit Burris MD [address] [place] [phone] PCP - General Internal Medicine 12/19/24 documented as of this encounter Additional Source Comments The information contained in this document represents components of the legal health record. It is not the complete legal health record.[facility]
--- OUTSIDE RECORDS SUMMARY | 2025-08-30 15:54 | XMS_ITS | Clinical Summary ---
Author Organization [facility] Address [address] [employer] [facility] [address] [place] [address] Phone Care Team Providers Care Support Services Rep Name Role Phone Benoit Burris MD Primary Care Provid er Allergies Active Allergy Reactions Criticality Noted Date Comments Hydrochlorothiazide 10/18/2022 Other reaction(s): rise in uric acid level Medications aspirin 81 mg chewable tablet Take 81 mg by mouth daily. Active multivitamins-m inerals-folic luiw-dmlejek-wn tein (COMPLETE SENIOR) 0.4-300-250 mg-mcg-mcg Tab Take 1 tablet by mouth daily. Active cholecalciferol (VITAMIN D3) 25 MCG (1,000 unit) tablet Take 1,000 Units by mouth daily. Active omega 3-ele-put-fish oil 1,000 mg (120 mg-180 mg) Cap Take 1 capsule by mouth daily. Active furosemide (LASIX) 40 MG tablet Take 80 mg by mouth daily. 05/24/2023 Active diclofenac sodium (VOLTAREN) 75 MG EC tablet Take 75 mg by mouth as needed. Active losartan (COZAAR) 100 MG tablet Take 100 mg by mouth daily. Active colchicine (COLCRYS) 0.6 mg tablet Take 0.6 mg by mouth as needed. 10/23/2024 Active atenolol (TENORMIN) 50 mg tablet TAKE 1 AND 1/2 TABLETS BY MOUTH DAILY 135 tablet 3 05/13/2025 Active omeprazole (PRILOSEC) 20 MG capsule Take 1 capsule by mouth every morning. 04/28/2025 Active Active Problems Problem Noted Date Diagnosed Date [...] Description 06/26/2025 10:00 AM EDT Office Visit [facility] [address] [place] [address] Dr 3rd Floor, [address] [place] [address] Anjum Negrete MD Aneurysm of ascending aorta without rupture (Primary Dx); Primary hypertension 06/20/2025 8:10 AM EDT - 06/20/2025 11:59 PM EDT Hospital Encounter Echo Lab [address] [place] [address] Anjum Negrete MD Discharge Disposition: Home or Self Care 06/22/2024 Procedure Pass Echo Lab [address] [place] [address] from Last 3 Months Social History Tobacco [...] Description 12/27/2025 10:00 AM EST Office Visit [facility] [address]rd Floor, [address] [place] [address] Jeannine Arambula DNP [address] [place] [address], [address] [address] [email or web address] 06/26/2026 10:20 AM EDT Office Visit [facility] [address] 3rd Floor, [address] [place] [address] Anjum Negrete MD [address] [place] [address], [address] [address] Health Maintenance Due Date Last Done Comments [...] no evidence of patent foramen ovale (PFO). us Anjum Negrete MD CV ECHO ORDERABLES Final Resu lt * (ABNORMAL) Basic metabolic panel (12/18/2024 11:48 PM EST) SODIUM 142 133 - 146 mmol/L [facility] CHLORIDE 101 96 - 108 mmol/L [facility] POTASSIUM 3.2(L) 3.3 - 5.1 mmol/L [facility] Comment:Specimen slightly he molyzed, result may be falsely elevated. CO2 27 21 - 35 mmol/L [facility] BUN 20(H) 6 - 19 mg/dL [facility] CREATININE 1.10 0.5 - 1.5 mg/dL [facility] GLUCOSE 110(H) 70 - 99 mg/dL [facility] CALCIUM 9.0 8.4 - 10.3 mg/dL [facility] EGFR 70 >59 mL/min/1.7 3m2 [facility] Comment:Estimated glomerular filtration rate calculated using the CKD-EPI refit equation. ANION GAP 17 10 - 20 mmol/L [facility] Blood 12/18/2024 11:4 8 PM EST 12/18/2024 11:52 PM EST us Gabriella Washington MD LAB BLOOD ORDERABLES Final R esult Performing Organization Address City/State/[facility] Co de Phone Number [address] [address] * (ABNORMAL) Lipid panel (11/23/2021 8:19 AM EST) HDL 42 mg/dL [facility] Comment: Interpretation <40 mg/dL: Low HDL cholesterol (major risk factor for CHD) Greater than or equal to 60 mg/dL: High HDL cholesterol ( negative risk factor for CHD) HDL - cholesterol is affected by a number of factors, e.g. smoking, excerise, hormones, sex and age. CHOLESTEROL 199 0 - 240 mg/dL [facility] TRIGLYCERIDES 165(H) 30 - 160 mg/dL [facility] LDL 124 50 - 129 mg/dL [facility] Comment: LDL levels in terms of risk for coronary heart disease: <100 mg/dL: Optimal 100-129 mg/dL: Near or above optimal 130-159 mg/dL: Borderline high 160-189 mg/dL: High >190 mg/dL: Very High CARDIAC RISK RATIO 4.7 3.4 - 5.0 [facility] Blood 11/23/2021 8:19 AM EST 11/23/2021 8:25 AM EST us Toni Piedra DO LAB BLOOD ORDERABLES Final R esult [address] [address] from Last 3 Months or Most Recently Relevant to Health Maintenance Insurance [place] MEDICARE PART A & B MEDICARE HMO BLUE REPLACEMENT MEDICARE PART A & [place] [address] [address] MEDICARE HMO BLUE REPLAC[place] [address] MEDICARE HMO BLUE REPLACEMENT MEDICARE PART A & [place] [address] [address] MEDICARE HMO BLUE [place]PLAC[place] [address] MEDICARE HMO BLUE REPLACEMENT MEDICARE PART A & [place] BL[place] MEDICARE PART A & [place] MEDICARE PART A & B Care Teams Support Services Rep Relationship Specialty Start Date End Date Benoit Burris MD [address] [place] [address] PCP - General Internal Medicine 12/19/24 Additional Source Comments The information contained in this document represents components of the legal health record. It is not the complete legal health record.[facility]
--- OUTSIDE RECORDS SUMMARY | 2025-08-30 15:54 | XMS_ITS | Encounter Summary ---
Author Organization [facility] Address [address] [place] [address] Phone Care Team Providers Care Powder And Primer Canning Leader Name Role Phone Benoit Burris MD Primary Care Provid er Encounter Details Date Type Department Care Team (Late st Contact Info) Description 12/19/2024 Procedure Pass [facility], Ct Scan - [facility] [address] [place] [address] Social History Tobacco Use Types Packs/Day Years [...] Description 12/27/2025 10:00 AM EST Office Visit [facility] [address] 3rd Floor, [address] [place] [address] Jeannine Arambula DNP [address] [place] [address] 06/26/2026 10:20 AM EDT Office Visit [address] 3rd [facility], [address] [place] [address] Anjum Negrete MD [address] [place] [address], [address] [address] documented as of this encounter Visit Diagnoses Not on filedocumented in this encounter Care Teams Powder And Primer Canning Leader Relationship Specialty Start Date End Date Benoit Burris MD [address] [place] [address] [address] PCP - General Internal Medicine 12/19/24 documented as of this encounter Additional Source Comments The information contained in this document represents components of the legal health record. It is not the complete legal health record.[facility]
--- OUTSIDE RECORDS SUMMARY | 2025-08-30 15:54 | XMS_ITS | Encounter Summary ---
Author Organization [facility] Address [address] [facility] [address] [place] [address] Phone Care Team Providers Care Electrical And Instrument Engineer Name Role Phone Toni Piedra DO Primary Care Provider [phone] Benoit Burris MD Primary Care Provid er Encounter Details Date Type Department Care Team (Latest Contact Info) Description 11/23/2021 Transcribe Orders [facility] [address] [place] [address] [place] [address] Toni Piedra DO [address] [place] [phone] Hypertension, unspecified type (Primary Dx); Screening for [...] Description 12/27/2025 10:00 AM EST Office Visit [facility] [address], [address] [place], [place] [phone] Jeannine Arambula DNP [address] [facility], [address] [place] [address] 06/26/2026 10:20 AM EDT Office Visit [facility] [address] [place] [address] 3rd Floor, [address] [place] [address] Anjum Negrete MD [address] [facility], [address] [place] [address] [email or web address] documented as of this encounter Results * PSA (screening) (11/23/2021 8:19 AM EST) PSA 1.86 0 - 4.00 ng/mL [facility] Blood 11/23/2021 8:19 AM EST 11/23/2021 8:25 AM EST [facility] BLOOD ORDERAB[facility] Final R esult [address] [address] * 25-[place] vitamin D (11/23/2021 8:19 AM EST) 25 [place] VIT D (TOTAL) 33 30 - 60 ng/mL [facility] Blood 11/23/2021 8:1 9 AM EST 11/23/2021 8:25 AM EST [email or web address] BLOOD ORDERABLES Final R esult [address] [address] * TSH (11/23/2021 8:19 AM EST) TSH 2.25 0.27 - 4.20 uIU/mL [facility] Blood 11/23/2021 8:19 AM EST 11/23/2021 8:25 AM EST us Toni Piedra DO LAB BLOOD ORDERABLES Final R esult Performing Organization Address City/[facility] Co de Phone Number [address] [address] * Glucose (11/23/2021 8:19 AM EST) GLUCOSE 93 70 - 99 mg/dL [facility] Blood 11/23/2021 8:19 AM EST 11/23/2021 8:25 AM EST us Toni Piedra DO LAB BLOOD ORDERABLES Final R ult Performing Organization Address [facility] de Phone Number [address] [address] * (ABNORMAL) Lipid panel (11/23/2021 8:19 AM EST) HDL 42 mg/dL [facility] Comment: Interpretation <40 mg/dL: Low HDL cholesterol (major risk factor for CHD) Greater than or equal to 60 mg/dL: High HDL cholesterol ( negative risk factor for CHD) HDL - cholesterol is affected by a number of factors, e.g. smoking, excerise, hormones, sex and age. CHOLESTEROL 199 0 - 240 mg/dL [facility] TRIGLYCERIDES 165(H) 30 - 160 mg/dL [facility] LDL 124 50 - 129 mg/dL [facility] Comment: LDL levels in terms of risk for coronary heart disease: <100 mg/dL: Optimal 100-129 mg/dL: Near or above optimal 130-159 mg/dL: Borderline high 160-189 mg/dL: High >190 mg/dL: Very High CARDIAC RISK RATIO 4.7 3.4 - 5.0 [facility] Blood 11/23/2021 8:19 AM EST 11/23/2021 8:25 AM EST us Toni Piedra DO LAB BLOOD ORDERABLES Final R esult Performing Organization Address City/[facility] Co de Phone Number [facility] [address] [place] [address] * CBC and differential (11/23/2021 8:19 AM EST) WBC 6.23 4.00 - 11.00 K/uL [facility] RBC 4.75 3.90 - 5.69 M/uL [facility] HGB 15.4 12.4 - 17.3 g/dL [facility] HCT 43.3 37.0 - 51.0 % [facility] PLT 223 140 - 430 K/uL [facility] MCV 91.2 78.0 - 97.0 fL [facility] MCH 32.4 25.0 - 33.0 pg [facility] MCHC 35.6 32.0 - 36.0 g/dL [facility] RDW 12.5 11.0 - 15.0 % [facility] MPV 9.9 8.4 - 12.8 fl [facility] NRBC 0.00 0 /100 WBCs [facility] ABSOLUTE NRBC 0.00 0 K/uL [facility] DIFF METHOD Auto [facility] NEUTS 57.1 43.0 - 75.0 % [facility] LYMPHS 27.6 18.2 - 47.4 % [facility] MONOS 10.4 4.00 - 11.00 % [facility] EOS 3.9 0.0 - 8.0 % [facility] BASOS 0.5 0.0 - 2.0 % [facility] Granulocytes, immature (%) 0.5 0.0 - 0.9 % [facility] ABSOLUTE NEUTS 3.56 1.80 - 7.70 K/uL [facility] ABSOLUTE LYMPHS 1.72 1.00 - 3.10 K/uL [facility] ABSOLUTE MONOS 0.65 0.20 - 0.80 K/uL [facility] ABSOLUTE EOS 0.24 0.00 - 0.80 K/uL [facility] ABSOLUTE BASOS 0.03 0.00 - 0.09 K/uL [facility] Granulocytes, immature 0.03 0.00 - 0.05 K/uL [facility] Blood 11/23/2021 8:19 AM EST 11/23/2021 8:25 AM EST us Toni Piedra DO LAB BLOOD ORDERABLES Final R esult [facility] [address] [place] [address] documented in this encounter Visit Diagnoses Diagnosis Hypertension, unspecified type- Primary Screening for prostate cancer Special screening for malignant neoplasm of prostate Routine general medical examination at a health care facility Pure hypercholesterolemia Non morbid obesity due to excess calories Benign prostatic hyperplasia, unspecified whether lower urinary tract symptoms present documented in this encounter Care Teams Electrical And Instrument Engineer Relationship Specialty Start Date End Date Toni Piedra DO [address] [place] [address] PCP - General Internal Medicine 07/06/20 12/18/24 Benoit Burris MD [address] [place] [address] PCP - General Internal Medicine 12/19/24 documented as of this encounter Additional Source Comments The information contained in this document represents components of the legal health record. It is not the complete legal health record.[facility]
--- OUTSIDE RECORDS SUMMARY | 2025-08-30 15:54 | XMS_ITS | Encounter Summary ---
Author Organization [facility] Address [address] [place] [address] Phone Care Team Providers Care Hand Outside Cutter Name Role Phone Toni Piedra DO Primary Care Provider [phone] Benoit Burris MD Primary Care Provid er Encounter Details Date Type Department Care Team (Late st Contact Info) Description 06/22/2024 Procedure Pass Echo [facility] [address] [place] [address] Social History Tobacco Use Types Packs/Day Years [...] Description 12/27/2025 10:00 AM EST Office Visit [facility] [address], [address] [place] [address] Jeannine Arambula DNP 22 [facility], [address] [address] 06/26/2026 10:20 AM EDT Office Visit [facility] 22 [facility] 3rd Floor, [address] [place] [address] Anjum Negrete MD 22 [facility], [address] [address] documented as of this encounter Visit Diagnoses Not on filedocumented in this encounter Care Teams Hand Outside Cutter Relationship Specialty Start Date End Date Toni Piedra DO [address] [place] [address] PCP - General Internal Medicine 07/06/20 12/18/24 Benoit Burris MD [address] [place] [address] [address] PCP - General Internal Medicine 12/19/24 documented as of this encounter Additional Source Comments The information contained in this document represents components of the legal health record. It is not the complete legal health record.[facility]
--- OUTSIDE RECORDS SUMMARY | 2025-08-30 15:54 | XMS_ITS | Encounter Summary ---
Author Organization [facility] Address [address] [place] [address] Phone Care Team Providers Care Railroad Track Mechanic Name Role Phone Benoit Burris MD Primary Care Provid er Encounter Details Date Type Department Care Team (Late st Contact Info) Description 12/19/2024 Procedure Pass [facility], Ct Scan - [facility] [address] [place] [address] Social History Tobacco Use Types Packs/Day Years [...] Description 12/27/2025 10:00 AM EST Office Visit [facility] [address] 3rd Floor, [address] [place] [address] Jeannine Arambula DNP [address] [place] [address] 06/26/2026 10:20 AM EDT Office Visit [address] 3rd [facility], [address] [place] [address] Anjum Negrete MD [address] [place] [address], [address] [address] documented as of this encounter Visit Diagnoses Not on filedocumented in this encounter Care Teams Railroad Track Mechanic Relationship Specialty Start Date End Date Benoit Burris MD [address] [place] [address] [address] PCP - General Internal Medicine 12/19/24 documented as of this encounter Additional Source Comments The information contained in this document represents components of the legal health record. It is not the complete legal health record.[facility]
== END 2025-08-30 13:47 | disposition home or self-care (01) ==
LOC: HO.HGS 13:15
PROVIDERS: PCP Internal Medicine; Visit Provider Surgery
DX: L02.01 Cutaneous abscess of face (principal)
CPT/HCPCS: 11441

== ENCOUNTER 2025-08-30 15:35 | Outpatient (AMB) | payer MEDICARE, SELFPAY ==
[2025-08-30 15:29] VITALS: BP 191/92; PULSE 62; TEMP 36.3; O2SAT 99; BMI 38.0
--- NOTE | 2025-08-30 15:29 | A.OFFPC_ITS ---
Vital Signs 08/30/25 15:29 Height 5 ft 8 in Weight 250 lb BMI 38.0 BP 191/92 H Blood Pressure Location Lt brachial Position Sitting Pulse 62 Pulse Source Pulse Oximeter Temp 97.3 F Temp Source Temporal Artery Scan Pulse Oximetry (%) 99 Oxygen Delivery Method Room Air Intake Visit Reasons: office visit Veterinary Medical Officer Required: No Accompanied by: Self / Same As Patient Allergies hydrochlorothiazide Allergy (Unknown, Verified 08/30/25 16:56) Unknown Medication List - Last Reconciled 08/30/25 by Ghada Zarate PA-C aspirin 81 mg PO DAILY atenolol 75 mg PO DAILY cholecalciferol (vitamin D3) (Vitamin D3) 25 mcg PO DAILY hydralazine 10 mg PO BID 30 days losartan 100 mg PO DAILY nrjbmuoyzvyn-cumbpvef-dmuhio 1 tab PO DAILY omega-3 fatty acids 2,000 mg PO DAILY Tobacco use date assessed: 08/30/25 Fall risk assessment: No Falls in past year Last assessed Fall Risk: 08/30/25 Dental Screening Dental Screen Date: 08/30/25 HPI office visit HPI Details The patient is a 75-year-old male presenting with hypertension. He had a cyst removal today as an outpatient surgery. And they told him his blood pressure was elevated. He was concerned about this. He reports a history of elevated blood pressure readings, with a recent measurement of 204 mmHg systolic, which prompted concern. He has a history of stopping furosemide due to concerns about kidney damage, as advised by his diagnostic radiologist, although his renal function is reportedly normal. He believes stopping the furosemide is what is making his blood pressure so high. He does not want to go back on the furosemide. He also reports he has been on amlodip ine in the past and gave him abnormal side effects. The patient has a history of ventricular hypertrophy, as noted by his diagnostic radiologist, although the overall cardiac structure is reportedly normal. Additionally, the patient has a history of gout, for which he has been prescribed allopurinol and colchicine. [facility] Medical History (Updated 08/30/25 @ 17:00 by Ghada Zarate PA-C) Ventricular hypertrophy Morbid obesity with BMI of 40.0-44.9, adult Abscess, eyebrow Gout Tubular adenoma Chronic low back pain Osteochondritis Osteoarthritis BPH (benign prostatic hyperplasia) Mild hypercholesterolemia HTN (hypertension) Surgical History History of colonoscopy (~12/03/20) S/P repair of hydrocele History of cataract surgery Family History Father Congestive heart failure Mother Congestive heart failure Social History Housing: House Alcohol intake: current Alcohol intake frequency: holidays/special occasions only Patient Tobacco Use Status: Never used Tobacco Advance Directives Date on File: 11/15/17 service: No Current occupational status: employed 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 1. Little interest or pleasure in doing things: not at all 2. Feeling down, depressed, or hopeless: not at all 3. Trouble falling or staying asleep, or sleeping too much: not at all 4. Feeling tired or having little energy: not at all 5. Poor appetite or overeating: not at all 6. Feeling bad about yourself - or that you are a failure or have let yourself or your family down: not at all 7. Trouble concentrating on things, such as reading the newspaper or watching television: not at all 8. Moving or speaking so slowly that other people could have noticed. Or the opposite - being so fidgety or restless that you have been moving around a lot more than usual: not at all 9. Thoughts that you would be better off or of hurting yourself in some way: not at all Total score: 0 Depression Screening Interpretation: Negative Depression Screening Done: Yes 01214 - PHQ-9 Billing: Yes Source: Developed by Drs. Toni Caruso, Meghan Hill, Abdulaziz Avila and colleagues, with an educational albino from [employer] Thrive Questionnaire Date Thrive assessed: 08/30/25 I am a: Patient What is your living situation today?: I have a steady place to live Within the past 12 months, did the food you bought not last and you didn't have the money to get more?: Never true Within the past 12 months, did you worry whether your food would run out before you got money to buy more?: Never true Do you have trouble paying for medicines?: No Do you have trouble getting transportation to medical appointments?: No Do you have trouble paying your heating and electricity bill?: No Do you have trouble taking care of your child, family member or friend?: No Do you have trouble with day-to-day activities such as bathing, preparing meals, shopping, managing finances, etc.?: No Are you currently unemployed and looking for a job?: No Are you interested in more education?: No Please select the resources that you would like help with: None THRIVE Score: 0 AUDIT C Alcohol Use Questionnaire (AUDIT-C) 1. How often do you have a drink containing alcohol?: Monthly or less 2. How many drinks containing alcohol do you have on a typical day when you are drinking?: 1 or 2 3. How often do you have six or more drinks on one occasion?: Never Total Score: 1 Score Reviewed/Action Taken: No ROGER-7 AMB Questionnaire ROGER-7 Date ROGER - 7 assessed: 08/30/25 Feeling nervous, anxious, or on edge: 0 = Not at all Not being able to stop or control worryin = Not at all Worrying too much about different things: 0 = Not at all Trouble relaxin = Not at all Being so restless that it is hard to sit still: 0 = Not at all Becoming easily annoyed or irritable: 0 = Not at all Feeling afraid as if something awful might happen: 0 = Not at all Total ROGER-7 score (0-4 normal; 5-9 mild; 10-14 moderate; 15-21 severe): 0 Source: Developed by Drs. Toni Caruso, Meghan Hill, Abdulaziz Avila and colleagues, with an educational albino from [employer] ROGER-7 Assessment Billing ROGER-7 Assessment Tool: ROGER-7 Assessment 58884 Review of Systems Const Details: - Cardiovascular: Reports elevated blood pressure readings. Denies chest pain or palpitations. All systems reviewed & are unremarkable except as noted in HPI and below Physical exam (Primary Care) Vital Signs: Last Vital Signs Temp 97.3 F 08/30/25 15:29 Pulse 62 10/17/25 15:29 BP 191/92 H 10/17/25 15:29 Pulse Ox 99 08/30/25 15:29 Oxygen Delivery Method Room Air 08/30/25 15:29 Care Plan Goal for BP management: <140/90 patient to continue atenolol 75 mg, losartan 100 mg daily and will start the patient on hydralazine 10 mg b.i.d. BMI result Body Mass Index 38.0 BMI Assessment/Plan discussion: High BMI High, discussed plan: lifestyle, weight reduction, dietary, physical activity, alcohol moderation and other Tobacco/Smoking Status: Tobacco use Status Tobacco use date assessed 08/30/25 08/30/25 15:32 Patient Tobacco Use Status Never used Tobacco 08/30/25 15:32 PHQ-9: PHQ-9 Score PHQ-9: Total score 0 08/30/25 15:32 Depression Screening Interpretation: Negative Thrive Assessment: Date of Thrive Assessment Date Thrive assessed 08/30/25 08/30/25 15:32 Const Other: Appearance: Alert. Oriented X3. No acute distress. Head: Normal external exam. Normocephalic. Atraumatic. Eyes: Pupils are equal, round, and reactive to light. Extraocular movements intact. Conjunctiva and sclera normal. Eyelids normal except for recent cyst removal from the upper eyelid. Throat: Pharynx normal. Uvula midline. Moist mucous membranes. Neck: Normal inspection. Neck supple. Full range of motion. Cardiovascular: Normal heart rate and rhythm. Respiratory: No respiratory distress. Painless inspiration. Back: Full range of motion noted. Skin: Skin warm and dry. Normal skin color. Extremities: Extremities exhibit normal range of motion. Coding Level of Care Code Est Pt Level 4 (03963) Complex EM visit Add On G2211 Diagnoses HTN (hypertension) I10 Ventricular hypertrophy I51.7 Gout M10.9 Additional Codes PHQ-9 - 31589 - PHQ-9 Billing: Yes ([id number]) ROGER-7 Assessment Billing - ROGER-7 Assessment Tool: ROGER-7 Assessment 24641 ([id number]) Time Spent (min) 50 Assessment & Plan Assessment & Plan (1) HTN (hypertension): Code(s): I10 - Essential (primary) hypertension Category: Medical Plan: The patient will start hydralazine 10 mg twice daily to manage hypertension, with a follow-up appointment scheduled in one week to monitor blood pressure response. He is advised to monitor his blood pressure at home and report any significant changes. (2) Ventricular hypertrophy: Code(s): I51.7 - Cardiomegaly Category: Medical Plan: The patient is under the care of a diagnostic radiologist for ventricular hypertrophy, with regular monitoring and stress tests showing normal cardiac structure. (3) Gout: Code(s): M10.9 - Gout, unspecified Category: Medical Plan: The patient is currently managed with allopurinol and colchicine for gout. Plan Plan Patient was informed and verbally consented to the use of an ambient scribe for clinic note documentation during this visit. 1. Essential Hypertension The patient will start hydralazine 10 mg twice daily to manage hypertension, with a follow-up appointment scheduled in one week to monitor blood pressure response. He is advised to monitor his blood pressure at home and report any significant changes. 2. Ventricular Hypertrophy The patient is under the care of a diagnostic radiologist for ventricular hypertrophy, with regular monitoring and stress tests showing normal cardiac structure. 3. Gout The patient is currently managed with allopurinol and colchicine for gout. I discussed with the patient the initiation of hydralazine for hypertension management, explaining its mechanism as a vasodilator and potential side effects such as headache and dizziness. The patient was instructed to monitor his blood pressure at home and to return in one week for follow-up. Medications: New hydralazine 10 mg PO BID 60 tabs 0RF 30 days Patient Instructions: - Take hydralazine 10 mg twice daily, once in the morning and once at night. - Monitor blood pressure at home and report any significant changes. - Return for a follow-up appointment in one week.
== END 2025-08-30 15:52 | disposition home or self-care (01) ==
LOC: HO.HMCSH 15:35
PROVIDERS: PCP Internal Medicine; Visit Provider Physician Assistant Medical
DX: I10 Essential (primary) hypertension (principal); I51.7 Cardiomegaly; M10.9 Gout, unspecified

== ENCOUNTER 2025-09-06 10:12 | Outpatient (AMB) | payer MEDICARE, SELFPAY ==
--- NOTE | 2025-09-06 11:25 | AM.OFFVISNUR ---
Intake Visit Reasons: Lt upper eyelid~ sut rem Allergies hydrochlorothiazide Allergy (Unknown, Verified 09/06/25 13:56) Unknown Nursing Note Pt reports to the office for SR of excision left upper eye lid. Sutures removed without difficulty. Wound is healing well - no swelling, no pain, no redness, edges well approx and closed. Path was reviewed with pt and he was advised to call if he has any problems or develops more of these lumps. He understands and will do so. Coding Level of Care Code Established Pt Est Pt Level 1 (86310) Patient Type Established History Problem Focused Exam Problem Focused Medical Decision Making Straight Forward Time Spent (min) 10 Comment SR, wound teaching
--- OUTSIDE RECORDS SUMMARY | 2025-09-06 11:37 | XMS_ITS | Encounter Summary ---
Author Organization [facility] Address [address] [employer] [facility] [address] [place] [address] Phone Care Team Providers Care Communication Electronic Technician Name Role Phone Toni Piedra DO Primary Care Provider Benoit Burris MD Primary Care Provid er Encounter Details Date Type Department Care Team (Late st Contact Info) Description 11/04/2022 Procedure Pass Echo Lab [address] [place] [address] Social History Tobacco Use Types Packs/Day Years [...] Description 12/27/2025 10:00 AM EST Office Visit [facility] [address] [facility], [address] [place] [phone] Jeannine Arambula DNP 22 [facility], [address] [address] 06/26/2026 10:20 AM EDT Office Visit [facility] [address] [place] [address] 3rd [facility], [address] [place] [address] Anjum Negrete MD [address] [address] [email or web address] documented as of this encounter Visit Diagnoses Not on filedocumented in this encounter Care Teams Communication Electronic Technician Relationship Specialty Start Date End Date Toni Piedra DO [address] [place] [address] PCP - General Internal Medicine 07/06/20 12/18/24 Benoit Burris MD [address] [place] [address] PCP - General Internal Medicine 12/19/24 documented as of this encounter Additional Source Comments The information contained in this document represents components of the legal health record. It is not the complete legal health record.[facility]
--- OUTSIDE RECORDS SUMMARY | 2025-09-06 11:37 | XMS_ITS | Clinical Summary ---
Author Organization [facility] Address [address] [facility] [address] [place] [address] Phone Care Team Providers Care Wire Preparation Machine Tender Name Role Phone Benoit Burris MD Primary Care Provid er Allergies Active Allergy Reactions Criticality Noted Date Comments Hydrochlorothiazide 10/18/2022 Other reaction(s): rise in uric acid level Medications aspirin 81 mg chewable tablet Take 81 mg by mouth daily. Active multivitamins-m inerals-folic ybfi-ededdty-ny tein (COMPLETE SENIOR) 0.4-300-250 mg-mcg-mcg Tab Take 1 tablet by mouth daily. Active cholecalciferol (VITAMIN D3) 25 MCG (1,000 unit) tablet Take 1,000 Units by mouth daily. Active omega 8-mfr-rtt-fish oil 1,000 mg (120 mg-180 mg) Cap [...] Description 06/26/2025 10:00 AM EDT Office Visit [facility] [address] [place] [address] Dr 3rd Floor, [address] [place] [address] Anjum Negrete MD Aneurysm of ascending aorta without rupture (Primary Dx); Primary hypertension 06/20/2025 8:10 AM EDT - 06/20/2025 11:59 PM EDT Hospital Encounter Echo Lab [address] [place] [address] Anjum Negrete MD Discharge Disposition: Home or Self Care 06/22/2024 Procedure Pass Echo Lab [address] [place] [address] from Last 3 Months Social History Tobacco [...] 12/27/2025 10:00 AM EST Office Visit [facility] [address] Floor, [address] [place] [address] Jeannine Arambula DNP [address] [place] [address], [address] [address] 06/26/2026 10:20 AM EDT Office Visit [facility] [address] 3rd Floor, [address] [place] [address] Anjum Negrete MD [address] [place] [address], [address] [address] Health Maintenance Due Date Last Done Comments [...] EST) SODIUM 142 133 - 146 mmol/L [facility] CHLORIDE 101 96 - 108 mmol/L [facility] POTASSIUM 3.2(L) 3.3 - 5.1 mmol/L [facility] Comment:Specimen slightly he molyzed, result may be falsely elevated. CO2 27 21 - 35 mmol/L [facility] BUN 20(H) 6 - 19 mg/dL [facility] CREATININE 1.10 0.5 - 1.5 mg/dL [facility] GLUCOSE 110(H) 70 - 99 mg/dL [facility] CALCIUM 9.0 8.4 - 10.3 mg/dL [facility] EGFR 70 >59 mL/min/1.7 3m2 [facility] Comment:Estimated glomerular filtration rate calculated using the CKD-EPI refit equation. ANION GAP 17 10 - 20 mmol/L [facility] Blood 12/18/2024 11:4 8 PM EST 12/18/2024 11:52 PM EST us Gabriella Washington MD LAB BLOOD ORDERABLES Final R esult Performing Organization Address City/State/[facility] Co de Phone Number [address] [address] * (ABNORMAL) Lipid panel (11/23/2021 8:19 AM EST) HDL 42 mg/dL [facility] Comment: Interpretation <40 mg/dL: Low HDL cholesterol (major risk factor for CHD) Greater than or equal to 60 mg/dL: High HDL cholesterol ( negative risk factor for CHD) HDL - cholesterol is affected by a number of factors, e.g. smoking, excerise, hormones, sex and age. CHOLESTEROL 199 0 - 240 mg/dL [facility] TRIGLYCERIDES 165(H) 30 - 160 mg/dL [facility] LDL 124 50 - 129 mg/dL [facility] Comment: LDL levels in terms of risk for coronary heart disease: <100 mg/dL: Optimal 100-129 mg/dL: Near or above optimal 130-159 mg/dL: Borderline high 160-189 mg/dL: High >190 mg/dL: Very High CARDIAC RISK RATIO 4.7 3.4 - 5.0 [facility] Blood 11/23/2021 8:19 AM EST 11/23/2021 8:25 AM EST us Toni Piedra DO LAB BLOOD ORDERABLES Final R esult [address] [address] from Last 3 Months or Most Recently Relevant to Health Maintenance Insurance [place] H[place] BLUE REPLACEMENT MEDICARE PART A & B MEDICARE HMO BLUE REPLACEMENT MEDICARE PART A & [place] [address] [place] [address] MEDICARE HMO [place] [address] [place] [address] MEDICARE HMO BLUE REPLACEMENT MEDICARE PART A [place] [address] [place] [address] MEDICARE HMO [place] [address] [place] [address] MEDICARE HMO BLUE REPLACEMENT MEDICARE PART A & B [place] BL[place] MEDICARE PART A & [place] MEDICARE PART A & B Care Teams Wire Preparation Machine Tender Relationship Specialty Start Date End Date Benoit Burris MD [address] [place] [address] PCP - General Internal Medicine 12/19/24 Additional Source Comments The information contained in this document represents components of the legal health record. It is not the complete legal health record.[facility]
--- OUTSIDE RECORDS SUMMARY | 2025-09-06 11:37 | XMS_ITS | Encounter Summary ---
Author Organization [facility] Address [address] [place] [address] Phone Care Team Providers Care Senior Laboratory Technician Name Role Phone Toni Piedra DO Primary Care Provider [phone]- [phone] Benoit Burris MD Primary Care Provid er Encounter Details Date Type Department Care Team (Late st Contact Info) Description 06/09/2023 Procedure Pass [facility] [place] [place] [address] Social History Tobacco Use Types Packs/Day Years [...] Description 12/27/2025 10:00 AM EST Office Visit [facility] [address], [address] [place] [address] Jeannine Arambula DNP 22 [facility], [address] [address] 06/26/2026 10:20 AM EDT Office Visit [facility] 22 [facility] 3rd Floor, [address] [place] [address] Anjum Negrete MD 22 [facility], [address] [address] documented as of this encounter Visit Diagnoses Not on filedocumented in this encounter Care Teams Senior Laboratory Technician Relationship Specialty Start Date End Date Toni Piedra DO [address] [place] [address] PCP - General Internal Medicine 07/06/20 12/18/24 Benoit Burris MD [address] [place] [address] [address] PCP - General Internal Medicine 12/19/24 documented as of this encounter Additional Source Comments The information contained in this document represents components of the legal health record. It is not the complete legal health record.[facility]
--- OUTSIDE RECORDS SUMMARY | 2025-09-06 11:37 | XMS_ITS | Encounter Summary ---
Author Organization [facility] Address [address] [place] [address] Phone Care Team Providers Care Custom Feed Corn Operator Name Role Phone Toni Piedra DO Primary Care Provider Benoit Burris MD Primary Care Provid er Encounter Details Date Type Department Care Team (Late st Contact Info) Description 04/27/2022 Procedure Pass Echo Lab [address] [place] [address] Social History Tobacco Use Types Packs/Day Years [...] Description 12/27/2025 10:00 AM EST Office Visit [facility] [address] 3rd [facility], [address] [place] [id number] Jeannine Arambula DNP 22 [facility], [address] [address] 06/26/2026 10:20 AM EDT Office Visit [facility] [address] [place] [address] 3rd [facility], [address] [place] [address] Anjum Negrete MD [address] [address] [email or web address] documented as of this encounter Visit Diagnoses Not on filedocumented in this encounter Care Teams Custom Feed Corn Operator Relationship Specialty Start Date End Date Toni Piedra DO [address] [place] [address] PCP - General Internal Medicine 07/06/20 12/18/24 Benoit Burris MD [address] [place] [address] PCP - General Internal Medicine 12/19/24 documented as of this encounter Additional Source Comments The information contained in this document represents components of the legal health record. It is not the complete legal health record.[facility]
--- OUTSIDE RECORDS SUMMARY | 2025-09-06 11:37 | XMS_ITS | Encounter Summary ---
Author Organization [facility] Address [address] [facility] [address] [place] [address] Phone Care Team Providers Care Test Engine Operator Name Role Phone Toni Piedra DO Primary Care Provider [phone] Benoit Burris MD Primary Care Provid er Encounter Details Date Type Department Care Team (Latest Contact Info) Description 11/23/2021 Transcribe Orders [facility] [address] [place] [address] [place] [address] Toni Piedra DO [address] [place] [address] [phone] Hypertension, unspecified type (Primary Dx); Screening for [...] Description 12/27/2025 10:00 AM EST Office Visit [facility] [address], [address] [place], [place] [phone] Jeannien Arambula DNP 22 [facility], [address] [place] [address] 06/26/2026 10:20 AM EDT Office Visit [facility] [address] [place] [address] 3rd Floor, [address] [place] [address] Anjum Negrete MD 22 [facility], [address] [place] [address] [email or web address] documented as of this encounter Results * PSA (screening) (11/23/2021 8:19 AM EST) PSA 1.86 0 - 4.00 ng/mL [facility] Blood 11/23/2021 8:19 AM EST 11/23/2021 8:25 AM EST [facility] Final R esult [address] [address] * 25-OH vitamin D (11/23/2021 8:19 AM EST) 25 [place] VIT D (TOTAL) 33 30 - 60 ng/mL [facility] Blood 11/23/2021 8:1 9 AM EST 11/23/2021 8:25 AM EST [place] [facility] LAB BLOOD ORDERABLES Final R esult [address] [address] * TSH (11/23/2021 8:19 AM EST) TSH 2.25 0.27 - 4.20 uIU/mL [facility] Blood 11/23/2021 8:19 AM EST 11/23/2021 8:25 AM EST us Toni Piedra DO LAB BLOOD ORDERABLES Final R esult Performing Organization Address City/[facility] Co de Phone Number [address] [address] * Glucose (11/23/2021 8:19 AM EST) GLUCOSE 93 70 - 99 mg/dL [facility] Blood 11/23/2021 8:19 AM EST 11/23/2021 8:25 AM EST us Toni Piedra DO LAB BLOOD ORDERABLES Final R ult Performing Organization Address [facility] de Phone Number [address] [address] * (ABNORMAL) Lipid panel (11/23/2021 8:19 AM EST) HDL 42 mg/dL [facility] Comment: Interpretation <40 mg/dL: Low HDL cholesterol (major risk factor for CHD) Greater than or equal to 60 mg/dL: High HDL cholesterol ( negative risk factor for CHD) HDL - cholesterol is affected by a number of factors, e.g. smoking, excerise, hormones, sex and age. CHOLESTEROL 199 0 - 240 mg/dL [facility] TRIGLYCERIDES 165(H) 30 - 160 mg/dL [facility] LDL 124 50 - 129 mg/dL [facility] Comment: LDL levels in terms of risk for coronary heart disease: <100 mg/dL: Optimal 100-129 mg/dL: Near or above optimal 130-159 mg/dL: Borderline high 160-189 mg/dL: High >190 mg/dL: Very High CARDIAC RISK RATIO 4.7 3.4 - 5.0 [facility] Blood 11/23/2021 8:19 AM EST 11/23/2021 8:25 AM EST us Toni Piedra DO LAB BLOOD ORDERABLES Final R esult Performing Organization Address City/[facility] Co de Phone Number [facility] [address] [place] [address] * CBC and differential (11/23/2021 8:19 AM EST) WBC 6.23 4.00 - 11.00 K/uL [facility] RBC 4.75 3.90 - 5.69 M/uL [facility] HGB 15.4 12.4 - 17.3 g/dL [facility] HCT 43.3 37.0 - 51.0 % [facility] PLT 223 140 - 430 K/uL [facility] MCV 91.2 78.0 - 97.0 fL [facility] MCH 32.4 25.0 - 33.0 pg [facility] MCHC 35.6 32.0 - 36.0 g/dL [facility] RDW 12.5 11.0 - 15.0 % [facility] MPV 9.9 8.4 - 12.8 fl [facility] NRBC 0.00 0 /100 WBCs [facility] ABSOLUTE NRBC 0.00 0 K/uL [facility] DIFF METHOD Auto [facility] NEUTS 57.1 43.0 - 75.0 % [facility] LYMPHS 27.6 18.2 - 47.4 % [facility] MONOS 10.4 4.00 - 11.00 % [facility] EOS 3.9 0.0 - 8.0 % [facility] BASOS 0.5 0.0 - 2.0 % [facility] Granulocytes, immature (%) 0.5 0.0 - 0.9 % [facility] ABSOLUTE NEUTS 3.56 1.80 - 7.70 K/uL [facility] ABSOLUTE LYMPHS 1.72 1.00 - 3.10 K/uL [facility] ABSOLUTE MONOS 0.65 0.20 - 0.80 K/uL [facility] ABSOLUTE EOS 0.24 0.00 - 0.80 K/uL [facility] ABSOLUTE BASOS 0.03 0.00 - 0.09 K/uL [facility] Granulocytes, immature 0.03 0.00 - 0.05 K/uL [facility] Blood 11/23/2021 8:19 AM EST 11/23/2021 8:25 AM EST us Toni Piedra DO LAB BLOOD ORDERABLES Final R esult [facility] [address] [place] [address] documented in this encounter Visit Diagnoses Diagnosis Hypertension, unspecified type- Primary Screening for prostate cancer Special screening for malignant neoplasm of prostate Routine general medical examination at a health care facility Pure hypercholesterolemia Non morbid obesity due to excess calories Benign prostatic hyperplasia, unspecified whether lower urinary tract symptoms present documented in this encounter Care Teams Test Engine Operator Relationship Specialty Start Date End Date Toni Piedra DO [address] [place] [address] PCP - General Internal Medicine 07/06/20 12/18/24 Benoit Burris MD [address] [place] [address] PCP - General Internal Medicine 12/19/24 documented as of this encounter Additional Source Comments The information contained in this document represents components of the legal health record. It is not the complete legal health record.[facility]
--- OUTSIDE RECORDS SUMMARY | 2025-09-06 11:37 | XMS_ITS | Encounter Summary ---
Author Organization [facility] Address [address] [place] [address] Phone Care Team Providers Care Boxcar Weigher Name Role Phone Benoit Burris MD Primary Care Provid er Encounter Details Date Type Department Care Team (Late st Contact Info) Description 12/19/2024 Procedure Pass [facility], Ct Scan - [facility] [address] [place] [address] Social History Tobacco Use Types Packs/Day Years [...] Description 12/27/2025 10:00 AM EST Office Visit [facility] [address] 3rd Floor, [address] [place] [address] Jeannine Arambula DNP [address] [place] [address] 06/26/2026 10:20 AM EDT Office Visit [address] 3rd [facility], [address] [place] [address] Anjum Negrete MD [address] [place] [address], [address] [address] documented as of this encounter Visit Diagnoses Not on filedocumented in this encounter Care Teams Boxcar Weigher Relationship Specialty Start Date End Date Benoit Burris MD [address] [place] [address] [address] PCP - General Internal Medicine 12/19/24 documented as of this encounter Additional Source Comments The information contained in this document represents components of the legal health record. It is not the complete legal health record.[facility]
--- OUTSIDE RECORDS SUMMARY | 2025-09-06 11:37 | XMS_ITS | Encounter Summary ---
Author Organization [facility] Address [address] [place] [address] Phone Care Team Providers Care Merchandiser Seasonal Name Role Phone Benoit Burris MD Primary Care Provid er Encounter Details Date Type Department Care Team (Late st Contact Info) Description 12/19/2024 Procedure Pass [facility], Ct Scan - [facility] [address] [place] [address] Social History Tobacco Use Types Packs/Day Years [...] Description 12/27/2025 10:00 AM EST Office Visit [facility] [address] 3rd Floor, [address] [place] [address] Jeannine Arambula DNP [address] [place] [address] 06/26/2026 10:20 AM EDT Office Visit [address] [facility], [address] [place] [address] Anjum Negrete MD [address] [place] [address], [address] [address] documented as of this encounter Visit Diagnoses Not on filedocumented in this encounter Care Teams Merchandiser Seasonal Relationship Specialty Start Date End Date Benoit Burris MD [address] [place] [address] [address] PCP - General Internal Medicine 12/19/24 documented as of this encounter Additional Source Comments The information contained in this document represents components of the legal health record. It is not the complete legal health record.[facility]
--- OUTSIDE RECORDS SUMMARY | 2025-09-06 11:38 | XMS_ITS | Encounter Summary ---
Author Organization [facility] Address [address] [facility] [address] [place] [address] Phone Care Team Providers Care Clam Treader Name Role Phone Benoit Burris MD Primary Care Provid er Reason for Referral * MRI/CAT Scan - Closed Specialty Diagnoses / Procedures Referred By Chris llanos Referred To Contact Radiology Diagnoses Precordial pain Procedures NC Myocardial Perfusion Pharmacologic Stress Multiple NC Myocardial Perfusion Exercise Multiple Anjum Negrete MD Phone: tel: fax: [email or web address] Referral ID Status Reason Start Date Expiration Date Visits Re quested Visits Authorized [id number] Closed 01/21/2025 03/21/2025 1 1 Encounter Details Date Type Department Care Team (Latest Contact Info) Description 01/22/2025 Ancillary Orders [facility] [address] [place] [address] 3rd Floor, [address] [place] [address] Anjum Negrete MD 22 [facility], [address] [place] [address] [email or web address] Precordial pain (Primary Dx); Other chest pain; [...] Description 12/27/2025 10:00 AM EST Office Visit [facility] [address] [place] [address], [address] [address] Jeannine Arambula DNP [address] [place] [address] 06/26/2026 10:20 AM EDT Office Visit [address] 3rd Floor, [address] [place] [address] Anjum Negrete MD [address] [place] [address] documented as of this encounter Results * [...] [id number] Sestamibi by Stephen Oneill, the nuclear reactor operator. 1. EKG: Baseline EKG showed sinus rhythm. [...] in SPECT format, reconstructed tomographically and compared [id number] in short axis, horizontal long axis and [...] rupture documented in this encounter Care Teams Clam Treader Relationship Specialty Start Date End Date Benoit Burris MD [address] [place] [address] PCP - General Internal Medicine 12/19/24 documented as of this encounter Additional Source Comments The information contained in this document represents components of the legal health record. It is not the complete legal health record.[facility]
--- OUTSIDE RECORDS SUMMARY | 2025-09-06 11:38 | XMS_ITS | Encounter Summary ---
Author Organization [facility] Address [address] [place] [address] Phone Care Team Providers Care Social Work Therapist Name Role Phone Toni Piedra DO Primary Care Provider [phone]- [phone] Benoit Burris MD Primary Care Provid er Encounter Details Date Type Department Care Team (Late st Contact Info) Description 06/22/2024 Procedure Pass Echo Lab [place] [place] [address] Social History Tobacco Use Types Packs/Day Years [...] Description 12/27/2025 10:00 AM EST Office Visit [facility] [address], [address] [place] [address] Jeannine Arambula DNP 22 [facility], [address] [address] 06/26/2026 10:20 AM EDT Office Visit [facility] [address] [facility] 3rd Floor, [address] [place] [address] Anjum Negrete MD 22 [facility], [address] [address] documented as of this encounter Visit Diagnoses Not on filedocumented in this encounter Care Teams Social Work Therapist Relationship Specialty Start Date End Date Toni Piedra DO [address] [place] [address] PCP - General Internal Medicine 07/06/20 12/18/24 Benoit Burris MD [address] [place] [address] [address] PCP - General Internal Medicine 12/19/24 documented as of this encounter Additional Source Comments The information contained in this document represents components of the legal health record. It is not the complete legal health record.[facility]
== END 2025-09-06 10:32 | disposition home or self-care (01) ==
LOC: HO.HGS 10:13
PROVIDERS: PCP Internal Medicine; Visit Provider Surgery
DX: L02.01 Cutaneous abscess of face (principal)
CPT/HCPCS: 99024

== ENCOUNTER → 2025-09-06 10:12 | Outpatient (BNVA) | payer MEDICARE, SELFPAY | PROVIDERS: PCP Internal Medicine; Visit Provider Surgery | DX: Z48.02 Encounter for removal of sutures (principal); Z28.89 Immunization not carried out for other reason; I10 Essential (primary) hypertension; J40 Bronchitis, not specified as acute or chronic | CPT/HCPCS: 90471; 96127; 99212 ==

== ENCOUNTER 2025-09-06 13:16 | Outpatient (AMB) | payer MEDICARE, SELFPAY ==
--- NOTE | 2025-09-06 13:20 | A.OFFPC_ITS ---
Vital Signs 09/06/25 13:21 09/06/25 13:55 Height 5 ft 8 in Weight 253 lb 4 oz BMI 38.5 BP 200/91 H 181/81 H Blood Pressure Location Rt brachial Lt brachial Position Sitting Sitting Pulse 60 59 Pulse Source Pulse Oximeter Temp 97.8 F Temp Source Temporal Artery Scan Pulse Oximetry (%) 98 96 Oxygen Delivery Method Room Air Room Air Intake Visit Reasons: BP follow up Bath Steward/Stewardess Required: No Accompanied by: Self / Same As Patient Allergies hydrochlorothiazide Allergy (Unknown, Verified 09/06/25 13:56) Unknown Medication List - Last Reconciled 09/06/25 by Ghada Zarate PA-C albuterol sulfate 90 mcg/actuation 1 puff inhalation Q4H PRN aspirin 81 mg PO DAILY atenolol 75 mg PO DAILY cholecalciferol (vitamin D3) (Vitamin D3) 25 mcg PO DAILY furosemide (Lasix) 40 mg PO BID hydralazine 10 mg PO BID 30 days losartan 100 mg PO DAILY ilbnjqylohcw-frqeucey-yppgxz 1 tab PO DAILY omega-3 fatty acids 2,000 mg PO DAILY Tobacco use date assessed: 09/06/25 Fall risk assessment: No Falls in past year Last assessed Fall Risk: 09/06/25 Dental Screening Dental Screen Date: 09/06/25 Did you have a dental visit in the last 12 months?: No HPI BP follow up HPI Details The patient is a 75-year-old male presenting with essential hypertension and a chest cold. The patient has a history of essential hypertension, which has been difficult to control despite adherence to multiple antihypertensive medications, including hydralazine, losartan, and atenolol. Blood pressure readings at home have remained elevated, with occasional spikes, particularly after physical exertion or stress. The patient reports taking his medications consistently at 8 a.m. and 7 p.m. daily. Recently, the patient developed symptoms of a chest cold, which began several days ago. He reports no significant history of respiratory issues, although he has experienced bronchitis in the past. The patient also discussed a history of chalazion, which was previously treated but recurred due to incomplete removal of the cystic sac. The issue was resolved after surgical intervention to remove the sac, and the patient reports no further recurrence. Social History - Exercise: Engages in strenuous yard wo rk, which may affect blood pressure readings. - Functional Status: Plays the trumpet, which aids in respiratory function. [facility] Medical History (Updated 09/06/25 @ 13:59 by Ghada Zarate PA-C) Bronchitis Ventricular hypertrophy Morbid obesity with BMI of 40.0-44.9, adult Abscess, eyebrow Gout Tubular adenoma Chronic low back pain Osteochondritis Osteoarthritis BPH (benign prostatic hyperplasia) Mild hypercholesterolemia HTN (hypertension) Surgical History History of colonoscopy (~12/03/20) S/P repair of hydrocele History of cataract surgery Family History Father Congestive heart failure Mother Congestive heart failure Social History Housing: House Alcohol intake: current Alcohol intake frequency: holidays/special occasions only Patient Tobacco Use Status: Never used Tobacco Advance Directives Date on File: 11/15/17 service: No Current occupational status: employed 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 1. Little interest or pleasure in doing things: not at all 2. Feeling down, depressed, or hopeless: not at all 3. Trouble falling or staying asleep, or sleeping too much: not at all 4. Feeling tired or having little energy: not at all 5. Poor appetite or overeating: not at all 6. Feeling bad about yourself - or that you are a failure or have let yourself or your family down: not at all 7. Trouble concentrating on things, such as reading the newspaper or watching television: not at all 8. Moving or speaking so slowly that other people could have noticed. Or the opposite - being so fidgety or restless that you have been moving around a lot more than usual: not at all 9. Thoughts that you would be better off or of hurting yourself in some way: not at all Total score: 0 Depression Screening Interpretation: Negative Depression Screening Done: Yes 48345 - PHQ-9 Billing: Yes Source: Developed by Drs. Toni Caruso, Meghan Hill, Abdulaziz Avila and colleagues, with an educational albino from [employer]. Thrive Questionnaire Date Thrive assessed: 09/06/25 I am a: Patient What is your living situation today?: I have a steady place to live Within the past 12 months, did the food you bought not last and you didn't have the money to get more?: Never true Within the past 12 months, did you worry whether your food would run out before you got money to buy more?: Never true Do you have trouble paying for medicines?: No Do you have trouble getting transportation to medical appointments?: No Do you have trouble paying your heating and electricity bill?: No Do you have trouble taking care of your child, family member or friend?: No Do you have trouble with day-to-day activities such as bathing, preparing meals, shopping, managing finances, etc.?: No Are you currently unemployed and looking for a job?: No Are you interested in more education?: No Please select the resources that you would like help with: None THRIVE Score: 0 AUDIT C Alcohol Use Questionnaire (AUDIT-C) 1. How often do you have a drink containing alcohol?: Monthly or less 2. How many drinks containing alcohol do you have on a typical day when you are drinking?: 1 or 2 3. How often do you have six or more drinks on one occasion?: Never Total Score: 1 Score Reviewed/Action Taken: No ROGER-7 AMB Questionnaire ROGER-7 Date ROGER - 7 assessed: 09/06/25 Feeling nervous, anxious, or on edge: 0 = Not at all Not being able to stop or control worryin = Not at all Worrying too much about different things: 0 = Not at all Trouble relaxin = Not at all Being so restless that it is hard to sit still: 0 = Not at all Becoming easily annoyed or irritable: 0 = Not at all Feeling afraid as if something awful might happen: 0 = Not at all Total ROGER-7 score (0-4 normal; 5-9 mild; 10-14 moderate; 15-21 severe): 0 Source: Developed by Meghan Hunter, Abdulaziz Avila and colleagues, with an educational albino from [employer]. ROGER-7 Assessment Billing ROGER-7 Assessment Tool: ROGER-7 Assessment 63784 Review of Systems Const Details: - Exercise: Engages in strenuous yard work, which may affect blood pressure readings. - Functional Status: Plays the trumpet, which aids in respiratory function. All systems reviewed & are unremarkable except as noted in HPI and below Physical exam (Primary Care) Vital Signs: Last Vital Signs Temp 97.8 F 09/06/25 13:21 Pulse 59 09/06/25 13:55 BP 181/81 H 09/06/25 13:55 Pulse Ox 96 09/06/25 13:55 Oxygen Delivery Method Room Air 09/06/25 13:55 Care Plan Goal for BP management: <140/90 patient to continue atenolol 75 mg daily, hydralazine 10 mg b.i.d., losartan 100 mg daily will add Lasix 40 mg b.i.d. patient to return in 1 month for blood pressure check BMI result Body Mass Index 38.5 BMI Assessment/Plan discussion: High BMI High, discussed plan: lifestyle, weight reduction, dietary, physical activity, alcohol moderation and other Tobacco/Smoking Status: Tobacco use Status Tobacco use date assessed 09/06/25 09/06/25 13:22 Patient Tobacco Use Status Never used Tobacco 09/06/25 13:22 PHQ-9: PHQ-9 Score PHQ-9: Total score 0 09/06/25 13:22 Depression Screening Interpretation: Negative Thrive Assessment: Date of Thrive Assessment Date Thrive assessed 09/06/25 09/06/25 13:22 Const Other: Appearance: Alert. Oriented X3. No acute distress. Head: Normal external exam. Normocephalic. Atraumatic. Eyes: Pupils are equal, round, and reactive to light. Extraocular movements intact. Conjunctiva and sclera normal. Eyelids normal. Throat: Pharynx normal. Uvula midline. Moist mucous membranes. Neck: Normal inspection. Neck supple. Full range of motion. No meningeal signs. Cardiovascular: Normal heart rate and rhythm. Heart sound normal. No murmurs noted. Pulses normal throughout. Respiratory: No respiratory distress. Painless inspiration. Breath sounds normal. No wheezes/rales/rhonchi noted. Chest nontender. No accessory muscle usage noted or decreased air movement noted. Back: Full range of motion noted. Skin: Skin warm and dry. Normal skin color. Extremities:Extremities exhibit normal range of motion. Neuro: Oriented X 3. No motor deficit. No sensory deficit. Reflexes normal. Office Procedures Flu Questionnaire Does the patient have a severe egg allergy?: No Does the patient have severe life threatening allergies?: No Does the patient have a fever or illness today?: No Has the patient ever had Guillain-[place] Syndrome?: No Has the patient ever had any past reaction to a flu shot?: No Immunizations Fluarix [id number] (PF) 45 mcg (15 mcg x 3)/0.5 mL IM syringe Performing Provider: Ghada Zarate PA-C Performing Location: [facility] [facility] Documented (not given) by: Yulia Nguyen CMA on 09/06/25 13:27 Reason Not Given: Received Previously Coding Level of Care Code Est Pt Level 4 (31765) Complex EM visit Add On G2211 Diagnoses HTN (hypertension) I10 Bronchitis J40 Additional Codes ROGER-7 Assessment Billing - ROGER-7 Assessment Tool: ROGER-7 Assessment 46987 ([id number]) PHQ-9 - 17245 - PHQ-9 Billing: Yes ([id number]) Time Spent (min) 50 Assessment & Plan Assessment & Plan (1) HTN (hypertension): Code(s): I10 - Essential (primary) hypertension Category: Medical Plan: The patient will continue with atenolol, hydralazine, and losartan for blood pressure management. Chlorthalidone was considered but the patient preferred to resume furosemide (Lasix) at 40 mg twice daily due to previous positive response. The patient is advised to monitor blood pressure closely and report any readings below 120/60 mmHg. (2) Bronchitis: Code(s): J40 - Bronchitis, not specified as acute or chronic Category: Medical Plan: The patient is prescribed Augmentin for suspected bronchitis and advised to take a probiotic to prevent antibiotic-associated diarrhea. Cough medicine without codeine is also prescribed to manage symptoms. Plan Plan Patient was informed and verbally consented to the use of an ambient scribe for clinic note documentation during this visit. 1. Essential Hypertension The patient will continue with atenolol, hydralazine, and losartan for blood pressure management. Chlorthalidone was considered but the patient preferred to resume furosemide (Lasix) at 40 mg twice daily due to previous positive response. The patient is advised to monitor blood pressure closely and report any readings below 120/60 mmHg. 2. Bronchitis The patient is prescribed Augmentin for suspected bronchitis and advised to take a probiotic to prevent antibiotic-associated diarrhea. Cough medicine without codeine is also prescribed to manage symptoms. 3. Chalazion The chalazion has been resolved following surgical removal of the cystic sac, with no further treatment required at this time. During the visit, we discussed the management of the patient's essential hypertension, including the continuation of current medications and the addition of furosemide due to its previous efficacy. We also addressed the patient's bronchitis, prescribing Augmentin and advising on the use of probiotics to mitigate side effects. The patient was informed about the resolution of the chalazion following surgical intervention. Orders: Orders Influenza [id number] Immunization Today Z23 - Encounter for immunization Medications: New amoxicillin-pot clavulanate 875-125 mg 1 tab PO BID 14 tabs 0RF 7 days benzonatate 100 mg PO BID PRN 30 caps 0RF cough rosuvastatin (Crestor) 10 mg PO DAILY 90 tabs 0RF furosemide (Lasix) 40 mg PO BID 180 tabs 3RF 90 days Patient Instructions: - Continue taking atenolol, hydralazine, and losartan as prescribed. - Take furosemide (Lasix) 40 mg in the morning and at night. - Monitor blood pressure regularly and report any readings below 120/60 mmHg. - Take Augmentin as prescribed and consider taking a probiotic to prevent diarrhea. - Use cough medicine as needed for symptom relief. - Follow up in one month for blood pressure evaluation.
[2025-09-06 13:21] VITALS: BP 200/91; PULSE 60; TEMP 36.6; O2SAT 98; BMI 38.5
[2025-09-06 13:55] VITALS: BP 181/81; PULSE 59; O2SAT 96
== END 2025-09-06 14:05 | disposition home or self-care (01) ==
LOC: HO.HMCSH 13:16
PROVIDERS: PCP Physician Assistant Medical; Visit Provider Physician Assistant Medical
DX: I10 Essential (primary) hypertension (principal); J40 Bronchitis, not specified as acute or chronic; Z23 Encounter for immunization

== ENCOUNTER 2025-10-07 14:49 | Outpatient (AMB) | payer MEDICARE, SELFPAY ==
[2025-10-07 15:03] VITALS: BP 145/70; PULSE 60; RESP 14; TEMP 36.3; O2SAT 97; BMI 38.6
--- NOTE | 2025-10-07 15:03 | A.OFFPC_ITS ---
Vital Signs 10/07/25 15:03 Height 5 ft 8 in Weight 254 lb BMI 38.6 BP 145/70 H Blood Pressure Location Rt brachial Position Sitting Respiration 14 Pulse 60 Pulse Source Pulse Oximeter Temp 97.4 F Temp Source Temporal Artery Scan Pulse Oximetry (%) 97 Oxygen Delivery Method Room Air Intake Visit Reasons: 1 Month follow up [place] Required: No Accompanied by: Self / Same As Patient Allergies hydrochlorothiazide Allergy (Mild, Verified 10/07/25 15:08) Unknown Tobacco use date assessed: 09/06/25 Dental Screening Dental Screen Date: 09/06/25 HPI HPI Comments History of Present Illness Details History of Present Illness - The patient is a 75 year old individua l presenting for a follow-up visit for management of high blood pressure. - The patient has a history of fluctuati ng hypertension, with recent home readings being high and past readings reaching the 200s for systolic pressure. - The patient reports feeling fine even with significantly elevated readings, such as 189/102 mmHg. - Current antihypertensive medications i nclude atenolol once daily, furosemide (Lasix) 40 mg twice daily, hydralazine twice daily, and losartan once daily. - A electrician helper previously expressed co ncern about the high dose of furosemide and the potential for kidney damage, although prior blood work showed no kidney problems. - The patient subsequently stopped takin g furosemide for one to two weeks, which resulted in a significant increase in blood pressure. - The patient also takes a statin for hy perlipidemia. - The patient is up to date on the flu s hot. - The patient uses a home blood pressure cuff that records readings on a phone but does not check regularly or at a specific time of day. Social History - Functional Status: The patient is able to drive and perform all activities of daily living without any problems. - Exercise: The patient was advised to w alk or engage in other physical activity for a minimum of 30 minutes daily. - Diet: The patient was advised to reduc e salt intake. Results - Labs: Prior blood work reviewed by ano ther provider showed no signs of kidney problems, and kidney function is noted to be good. [facility] Medical History Bronchitis Ventricular hypertrophy Morbid obesity with BMI of 40.0-44.9, adult Abscess, eyebrow Gout Tubular adenoma Chronic low back pain Osteochondritis Osteoarthritis BPH (benign prostatic hyperplasia) Mild hypercholesterolemia HTN (hypertension) Surgical History History of colonoscopy (~12/03/20) S/P repair of hydrocele History of cataract surgery Family History Father Congestive heart failure Mother Congestive heart failure Social History Housing: House Alcohol intake: current Alcohol intake frequency: holidays/special occasions only Patient Tobacco Use Status: Never used Tobacco Advance Directives Date on File: 11/15/17 service: No Current occupational status: employed 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 1. Little interest or pleasure in doing things: not at all 2. Feeling down, depressed, or hopeless: not at all 3. Trouble falling or staying asleep, or sleeping too much: not at all 4. Feeling tired or having little energy: not at all 5. Poor appetite or overeating: not at all 6. Feeling bad about yourself - or that you are a failure or have let yourself or your family down: not at all 7. Trouble concentrating on things, such as reading the newspaper or watching te levision: not at all 8. Moving or speaking so slowly that other people could have noticed. Or the opposite - being so fidgety or restless that you have been moving around a lot more than usual: not at all 9. Thoughts that you would be better off or of hurting yourself in some way: not at all Total score: 0 Depression Screening Interpretation: Negative Depression Screening Done: Yes 34555 - PHQ-9 Billing: Yes Source: Developed by Drs. Toni Caruso, Meghan Hill, Abdulaziz Avila and colleagues, with an educational albino from [employer]. Thrive Questionnaire Date Thrive assessed: 09/06/25 I am a: Patient What is your living situation today?: I have a steady place to live Within the past 12 months, did the food you bought not last and you didn't have the money to get more?: Never true Within the past 12 months, did you worry whether your food would run out before you got money to buy more?: Never true Do you have trouble paying for medicines?: No Do you have trouble getting transportation to medical appointments?: No Do you have trouble paying your heating and electricity bill?: No Do you have trouble taking care of your child, family member or friend?: No Do you have trouble with day-to-day activities such as bathing, preparing meals, shopping, managing finances, etc.?: No Are you currently unemployed and looking for a job?: No Are you interested in more education?: No Please select the resources that you would like help with: None THRIVE Score: 0 AUDIT C Alcohol Use Questionnaire (AUDIT-C) 1. How often do you have a drink containing alcohol?: Monthly or less 2. How many drinks containing alcohol do you have on a typical day when you are drinking?: 1 or 2 3. How often do you have six or more drinks on one occasion?: Never Total Score: 1 Score Reviewed/Action Taken: No ROGER-7 AMB Questionnaire ROGER-7 Date ROGER - 7 assessed: 09/06/25 Feeling nervous, anxious, or on edge: 0 = Not at all Not being able to stop or control worryin = Not at all Worrying too much about different things: 0 = Not at all Trouble relaxin = Not at all Being so restless that it is hard to sit still: 0 = Not at all Becoming easily annoyed or irritable: 0 = Not at all Feeling afraid as if something awful might happen: 0 = Not at all Total ROGER-7 score (0-4 normal; 5-9 mild; 10-14 moderate; 15-21 severe): 0 Source: Developed by Drs. Toni Caruso, Meghan Hill, Abdulaziz Avila and colleagues, with an educational albino from [employer]. ROGER-7 Assessment Billing ROGER-7 Assessment Tool: ROGER-7 Assessment 74953 Review of Systems Narrative Review of Systems - Constitutional: Reports sleeping well but denies feeling tense or anxious. - Genitourinary: Reports nocturia. - Cardiovascular: Denies symptoms despite high blood pressure readings. Physical exam (Primary Care) Vital Signs: Last Vital Signs Temp 97.4 F 10/07/25 15:03 Pulse 60 10/07/25 15:03 Resp 14 10/07/25 15:03 BP 145/70 H 10/07/25 15:03 Pulse Ox 97 10/07/25 15:03 Oxygen Delivery Method Room Air 10/07/25 15:03 BMI result Body Mass Index 38.6 Tobacco/Smoking Status: Tobacco use Status Tobacco use date assessed 09/06/25 10/07/25 15:04 Patient Tobacco Use Status Never used Tobacco 10/07/25 15:04 PHQ-9: PHQ-9 Score PHQ-9: Total score 0 10/07/25 15:04 Depression Screening Interpretation: Negative Thrive Assessment: Date of Thrive Assessment Date Thrive assessed 09/06/25 10/07/25 15:04 Narrative Physical Exam General: Cooperative and healthy appearing Nutritional Appearance: Well nourished Orientation/consciousness: Patient oriented x3 Limitations: No limitations Head: Normal to inspection General: Appearance normal, both eyes and all related structures Neck: Normal visual inspection Chest: Normal palpation of entire chest wall Respiratory: Normal respiratory effort Neurology: Patient oriented x3 Office Procedures Flu Questionnaire Does the patient have a severe egg allergy?: No Does the patient have severe life threatening allergies?: No Does the patient have a fever or illness today?: No Has the patient ever had Guillain-[place] Syndrome?: No Has the patient ever had any past reaction to a flu shot?: No Immunizations Fluarix [id number] (PF) 45 mcg (15 mcg x 3)/0.5 mL IM syringe Performing Provider: Benoit Burris MD [facility] [place] [facility] Documented (not given) by: JOSEPHINE López on 10/07/25 15:11 Reason Not Given: Received Previously Coding Level of Care Code Complex visit Add On G2211 Diagnoses HTN (hypertension) I10 Additional Codes ROGER-7 Assessment Billing - ROGER-7 Assessment Tool: ROGER-7 Assessment 78358 ([id number]) PHQ-9 - 15606 - PHQ-9 Billing: Yes ([id number]) Assessment & Plan Assessment & Plan (1) HTN (hypertension): Code(s): I10 - Essential (primary) hypertension Category: Medical Plan Plan - The dose of furosemide (Lasix) will be reduced from 40 mg twice a day to 40 mg once a day. - The patient will continue atenolol, losartan, and the prescribed statin at current dosages. - The patient will continue hydralazine twice a day for now, with a plan to increase it to three times a day if blood pressure increases after the furosemide reduction. - The patient is advised to continue monitoring blood pressure at home. - Lifestyle modifications were recommended, including engaging in at least 30 minutes of daily exercise and reducing dietary salt intake. - Orders have been placed for follow-up blood work. - The patient will follow up in one month for reassessment. Discussion Notes I discussed the patient's fluctuating high blood pressure readings and reviewed the current medication regimen. I acknowledged the electrician helper's concern regarding the high dose of furosemide but noted that the patient's kidney function remains good. We discussed that the patient's blood pressure spiked after a trial of stopping furosemide. Consequently, I recommended reducing the furosemide dose to once daily and continuing to monitor blood pressure at home. We developed a contingency plan to increase hydralazine to three times a day if blood pressure rises. I emphasized the importance of lifestyle changes, including reducing salt intake and exercising for at least 30 minutes per day. I placed orders for new blood work and scheduled a follow-up appointment in one month to reassess the treatment plan. Patient Instructions - Take your Furosemide (Lasix) 40 mg tablet once a day instead of twice a day. - Continue taking your other prescribed medications, including atenolol, hydralazine twice a day, losartan, and your cholesterol medicine. - Continue to check your blood pressure at home and record the readings. - Try to walk or do other types of exercise for at least 30 minutes every day. - Reduce the amount of salt in your diet. - An order for blood work has been placed; please go to the lab to have your blood drawn. - Please schedule a follow-up appointment in one month. Orders: Orders Influenza [id number] Immunization Today Z23 - Encounter for immunization Complete Blood Count no Diff Today I10 - Essential (primary) hypertension Liver Panel Today I10 - Essential (primary) hypertension Thyroid Stimulating Hormone Today I10 - Essential (primary) hypertension Basic Metabolic Panel Today I10 - Essential (primary) hypertension Lipid Panel Today I10 - Essential (primary) hypertension UA and rflx microscopic Today I10 - Essential (primary) hypertension
--- OUTSIDE RECORDS SUMMARY | 2025-10-07 19:38 | XMS_ITS | Clinical Summary ---
Author Organization [facility] Address [address] [facility] [address] [place] [address] Phone Care Team Providers Care Forestry Tree Pruner Name Role Phone Benoit Burris MD Primary Care Provid er Allergies Active Allergy Reactions Criticality Noted Date Comments Hydrochlorothiazide 10/18/2022 Other reaction(s): rise in uric acid level Medications aspirin 81 mg chewable tablet Take 81 mg by mouth daily. Active multivitamins-m inerals-folic vtyg-xsltahz-lz tein (COMPLETE SENIOR) 0.4-300-250 mg-mcg-mcg Tab Take 1 tablet by mouth daily. Active cholecalciferol (VITAMIN D3) 25 MCG (1,000 unit) tablet Take 1,000 Units by mouth daily. Active omega 4-tzz-ghx-fish oil 1,000 mg (120 mg-180 mg) Cap [...] reducing his ASCVD risk score. Information on OPTE[employer]ineering Solutions & ProductsA weight management program given. - discussed statin [...] modifications -monitor BP for highs and lows Social History Tobacco Use Types Packs/Day Years [...] Description 12/27/2025 10:00 AM EST Office Visit [facility] [address] [facility] 3rd Floor, [address] [place] [address] Jeannine Arambula, SUDHA [address] [facility], [address] [place] [address] 06/26/2026 10:20 AM EDT Office Visit [facility] [address] [place] [address] 3rd Floor, [address] [place] [address] Anjum Negrete MD [address] [facility], [address] [place] [address] [email or web address] Health Maintenance Due Date Last Done Comments Adult Td,Tdap Booster 1950 DEPRESSION SCREENING 1962 HEPATITIS C SCREENING 1968 COLOGUARD 1995 COLONOSCOPY 1995 COLORECTAL CANCER SCREENING 1995 FIT TEST 1995 FOBT 1995 SIGMOIDOSCOPY 1995 VIRTUAL COLONOSCOPY 1995 LIPID PANEL 11/23/2022 11/23/2021 INFLUENZA VACCINE (#1) 2025 , 09/13/2023, 09/09/2022, Additional history exists COVID-19 VACCINE (2024- season) 2025 08/08/2024, 10/18/2023, 09/09/2022, Additional history [...] Procedure Name Priority Date/Time Associated Diagnosis Comments BASIC METABOLIC PANEL (BMP) STAT 12/18/2024 11:48 PM EST LIPID PANEL Routine 11/23/2021 8:19 AM EST Hypertension, unspecified type Routine general medical examination at a health care facility Pure hypercholesterolemia Non morbid obesity due to excess calories Benign prostatic hyperplasia, unspecified whether lower urinary tract symptoms present from Last 3 Months or Most Recently Relevant to Health Maintenance Results * (ABNORMAL) Basic metabolic panel (12/18/2024 11:48 PM EST) SODIUM 142 133 - 146 mmol/L [facility] CHLORIDE 101 96 - 108 mmol/L [facility] POTASSIUM 3.2(L) 3.3 - 5.1 mmol/L [facility] Comment:Specimen slightly he molyzed, result may be falsely elevated. CO2 27 21 - 35 mmol/L [facility] BUN 20(H) 6 - 19 mg/dL [facility] CREATININE 1.10 0.5 - 1.5 mg/dL [facility] GLUCOSE 110(H) 70 - 99 mg/dL [facility] CALCIUM 9.0 8.4 - 10.3 mg/dL [facility] EGFR 70 >59 mL/min/1.7 3m2 [facility] Comment:Estimated glomerular filtration rate calculated using the CKD-EPI refit equation. ANION GAP 17 10 - 20 mmol/L [facility] Blood 12/18/2024 11:4 8 PM EST 12/18/2024 11:52 PM EST us Gabriella Washington MD LAB BLOOD BKR ORDERABLES Fin al Result [facility] [address] [place], [place] [id number] * (ABNORMAL) Lipid panel (11/23/2021 8:19 AM EST) HDL 42 mg/dL [facility] Comment: Interpretation <40 mg/dL: Low HDL cholesterol (major risk factor for CHD) Greater than or equal to 60 mg/dL: High HDL cholesterol ( negative risk factor for CHD) HDL - cholesterol is affected by a number of factors, e.g. smoking, excerise, hormones, sex and age. CHOLESTEROL 199 0 - 240 mg/dL [facility] TRIGLYCERIDES 165(H) 30 - 160 mg/dL [facility] LDL 124 50 - 129 mg/dL [facility] Comment: LDL levels in terms of risk for coronary heart disease: <100 mg/dL: Optimal 100-129 mg/dL: Near or above optimal 130-159 mg/dL: Borderline high 160-189 mg/dL: High >190 mg/dL: Very High CARDIAC RISK RATIO 4.7 3.4 - 5.0 C [facility] Blood 11/23/2021 8:19 AM EST 11/23/2021 8:25 AM EST us Toni Piedra DO LAB BLOOD BKR ORDERABLES Fin al Result [facility] [address] [place], [place] [phone] from Last 3 Months or Most Recently Relevant to Health Maintenance Insurance [place] H[place] BLUE REPLACEMENT MEDICARE PART A & B MEDICARE PART A & [place] [address] MEDICARE HMO BLUE REPLACEMENT [place] [address] MEDICARE HMO BLUE REPLACEMENT MEDICARE HMO BLUE REPLACEMENT MEDICARE PART A & B MEDICARE HMO BLUE REPLACEMENT MEDICARE PART A & B MEDICARE HMO BLUE REPLACEMENT MEDICARE PART A & B [place] BL[place] RE[place]AC[place] MEDICARE PART A & B Care Teams Forestry Tree Pruner Relationship Specialty Start Date End Date Benoit Burris MD [address] [place] [address] [phone] PCP - General Internal Medicine 12/19/24 Additional Source Comments The information contained in this document represents components of the legal health record. It is not the complete legal health record.[facility]
--- OUTSIDE RECORDS SUMMARY | 2025-10-07 19:38 | XMS_ITS | Encounter Summary ---
Author Organization [facility] Address [address] [facility] [address] [place] [address] Phone Care Team Providers Care Breeding Technician Name Role Phone Benoit Burris MD Primary Care Provid er Encounter Details Date Type Department Care Team (Late st Contact Info) Description 12/19/2024 Procedure Pass [facility], Ct Scan - [facility] [address] [place] [address] Social History Tobacco Use Types Packs/Day Years [...] Description 12/27/2025 10:00 AM EST Office Visit [facility] [address] 3rd Floor, [address] [place] [address] Jeannine Arambula DNP [address] [place] [address] 06/26/2026 10:20 AM EDT Office Visit [address] 3rd [facility], [address] [place] [address] Anjum Negrete MD [address] [place] [address], [address] [address] documented as of this encounter Visit Diagnoses Not on filedocumented in this encounter Care Teams Breeding Technician Relationship Specialty Start Date End Date Benoit Burris MD [address] [place] [address] [address] PCP - General Internal Medicine 12/19/24 documented as of this encounter Additional Source Comments The information contained in this document represents components of the legal health record. It is not the complete legal health record.[facility]
--- OUTSIDE RECORDS SUMMARY | 2025-10-07 19:38 | XMS_ITS | Encounter Summary ---
Author Organization [facility] Address [address] [facility] [address] [place] [address] Phone Care Team Providers Care Fruit Grader Name Role Phone Toni Piedra DO Primary Care Provider [phone] Benoit Burris MD Primary Care Provid er Encounter Details Date Type Department Care Team (Late st Contact Info) Description 04/27/2022 Procedure Pass [facility] [address] [place] [address] Social History Tobacco Use Types Packs/Day Years [...] Description 12/27/2025 10:00 AM EST Office Visit [facility] Ángela [address] 3rd [facility], [address] [place] [phone] Jeannine Arambula DNP 22 [facility], [address] [address] 06/26/2026 10:20 AM EDT Office Visit [facility] [address] [place] [address] 3rd [facility], [address] [place] [address] Anjum Negrete MD [address] [address] [email or web address] documented as of this encounter Visit Diagnoses Not on filedocumented in this encounter Care Teams Fruit Grader Relationship Specialty Start Date End Date Toni Piedra DO [address] [place] [address] PCP - General Internal Medicine 07/06/20 12/18/24 Benoit Bruris MD [address] [place] [address] PCP - General Internal Medicine 12/19/24 documented as of this encounter Additional Source Comments The information contained in this document represents components of the legal health record. It is not the complete legal health record.[facility]
--- OUTSIDE RECORDS SUMMARY | 2025-10-07 19:38 | XMS_ITS | Encounter Summary ---
Author Organization [facility] Address [address] [place] [address] Phone Care Team Providers Care Manager Strategy Name Role Phone Toni Piedra DO Primary Care Provider [phone] Benoit Burris MD Primary Care Provid er Encounter Details Date Type Department Care Team (Late st Contact Info) Description 06/09/2023 Procedure Pass [facility] [place] [place] [address] Social History Tobacco Use Types Packs/Day Years [...] Description 12/27/2025 10:00 AM EST Office Visit [facility] [address] 3[address] Floor, [address] [place] [address] Jeannine Arambula DNP 22 [facility], [address] [address] 06/26/2026 10:20 AM EDT Office Visit [facility] [address] [facility] 3rd Floor, [address] [place] [address] Anjum Negrete MD 22 [facility], [address] [address] documented as of this encounter Visit Diagnoses Not on filedocumented in this encounter Care Teams Manager Strategy Relationship Specialty Start Date End Date Toni Piedra DO [address] [place] [address] PCP - General Internal Medicine 07/06/20 12/18/24 Benoit Burris MD [address] [place] [address] [address] PCP - General Internal Medicine 12/19/24 documented as of this encounter Additional Source Comments The information contained in this document represents components of the legal health record. It is not the complete legal health record.[facility]
--- OUTSIDE RECORDS SUMMARY | 2025-10-07 19:38 | XMS_ITS | Encounter Summary ---
Author Organization [facility] Address [address] [place] [address] Phone Care Team Providers Care Host/Hostess Head Name Role Phone Toni Piedra DO Primary Care Provider [phone] Benoit Burris MD Primary Care Provid er Encounter Details Date Type Department Care Team (Late st Contact Info) Description 06/22/2024 Procedure Pass [facility] [place] [place] [address] Social History Tobacco Use Types Packs/Day Years [...] Description 12/27/2025 10:00 AM EST Office Visit [facility] [address] [place]rd Floor, [address] [place] [address] Jeannine Arambula DNP 22 [facility], [address] [address] 06/26/2026 10:20 AM EDT Office Visit [facility] 22 [facility] 3rd Floor, [address] [place] [address] Anjum Negrete MD 22 [facility], [address] [address] documented as of this encounter Visit Diagnoses Not on filedocumented in this encounter Care Teams Host/Hostess Head Relationship Specialty Start Date End Date Toni Piedra DO [address] [place] [address] PCP - General Internal Medicine 07/06/20 12/18/24 Benoit Burris MD [address] [place] [address] [address] PCP - General Internal Medicine 12/19/24 documented as of this encounter Additional Source Comments The information contained in this document represents components of the legal health record. It is not the complete legal health record.[facility]
--- OUTSIDE RECORDS SUMMARY | 2025-10-07 19:38 | XMS_ITS | Encounter Summary ---
Author Organization [facility] Address [address] [facility] [address] [place] [address] Phone Care Team Providers Care Stem Shaper Name Role Phone Toni Piedra DO Primary Care Provider Benoit Burris MD Primary Care Provid er Encounter Details Date Type Department Care Team (Late st Contact Info) Description 11/04/2022 Procedure Pass [facility] [address] [place] [address] Social History Tobacco Use Types Packs/Day Years [...] Description 12/27/2025 10:00 AM EST Office Visit [facility] [address] 3rd [facility], [address] [place] [phone] Jeannine Arambula DNP 22 [facility], [address] [address] 06/26/2026 10:20 AM EDT Office Visit [facility] [address] [place] [address] 3rd [facility], [address] [place] [address] Anjum Negrete MD [address] [address] [email or web address] documented as of this encounter Visit Diagnoses Not on filedocumented in this encounter Care Teams Stem Shaper Relationship Specialty Start Date End Date Toni Piedra DO [address] [place] [address] PCP - General Internal Medicine 07/06/20 12/18/24 Benoit Burris MD [address] [place] [address] PCP - General Internal Medicine 12/19/24 documented as of this encounter Additional Source Comments The information contained in this document represents components of the legal health record. It is not the complete legal health record.[facility]
--- OUTSIDE RECORDS SUMMARY | 2025-10-07 19:38 | XMS_ITS | Encounter Summary ---
Author Organization [facility] Address [address] [facility] [address] [place] [address] Phone Care Team Providers Care Lock Up Worker Name Role Phone Benoit Burris MD Primary Care Provid er Reason for Referral * MRI/CAT Scan - Closed Specialty Diagnoses / Procedures Referred By Chris llanos Referred To Contact Radiology Diagnoses Precordial pain Procedures NC Myocardial Perfusion Pharmacologic Stress Multiple NC Myocardial Perfusion Exercise Multiple Anjum Negrete MD Phone: tel: fax: [email or web address] Referral ID Status Reason Start Date Expiration Date Visits Re quested Visits Authorized [id number] Closed 01/21/2025 03/21/2025 1 1 Encounter Details Date Type Department Care Team (Latest Contact Info) Description 01/22/2025 Ancillary Orders [facility] [address] [place] [address] 3rd Floor, [address] [place] [address] Anjum Negrete MD 22 [facility], [address] [place] [address] [email or web address] Precordial pain (Primary Dx); Other chest pain; [...] Description 12/27/2025 10:00 AM EST Office Visit [facility] [address] [place] [address], [address] [address] Jeannine Arambula DNP [address] [place] [address] 06/26/2026 10:20 AM EDT Office Visit [address] 3rd Floor, [address] [place] [address] Anjum Negrete MD [address] [place] [address] documented as of this encounter Results * [...] of Tc99m Sestamibi by Stephen Oneill, the electrical engineering technologist. 1. EKG: Baseline EKG showed sinus [...] in SPECT format, reconstructed tomographically and compared [id number] in short axis, horizontal long axis and [...] rupture documented in this encounter Care Teams Lock Up Worker Relationship Specialty Start Date End Date Benoit Burris MD [address] [place] [address] PCP - General Internal Medicine 12/19/24 documented as of this encounter Additional Source Comments The information contained in this document represents components of the legal health record. It is not the complete legal health record.[facility]
--- OUTSIDE RECORDS SUMMARY | 2025-10-07 19:38 | XMS_ITS | Encounter Summary ---
Author Organization [facility] Address [address] [facility] [address] [place] [address] Phone Care Team Providers Care Wash Plant Operator Name Role Phone Toni Piedra DO Primary Care Provider [phone] Benoit Burris MD Primary Care Provid er Encounter Details Date Type Department Care Team (Latest Contact Info) Description 11/23/2021 Transcribe Orders [address] [place] [address] Toni Piedra DO [address] [place], [place] [phone] Hypertension, unspecified type (Primary Dx); Screening for [...] Description 12/27/2025 10:00 AM EST Office Visit [facility] [place] 3rd Floor, [address] [place], [place] [phone] Jeannine Arambula DNP 22 [facility], [address] [place] [address] 06/26/2026 10:20 AM EDT Office Visit [facility] [address] [place] [address] 3rd Floor, [address] [place] [address] Anjum Negrete MD 22 [facility], [address] [place] [address] [email or web address] documented as of this encounter Results * PSA (screening) (11/23/2021 8:19 AM EST) PSA 1.86 0 - 4.00 ng/mL [facility] Blood 11/23/2021 8:19 AM EST 11/23/2021 8:25 AM EST [facility] LAB [facility]LOOD BKR ORDERABLES Fin al Result [address] [address] * 25-OH vitamin D (11/23/2021 8:19 AM EST) 25 OH VIT D (TOTAL) 33 30 - 60 ng/mL [facility] Blood 11/23/2021 8:19 AM EST 11/23/2021 8:25 AM EST [facility] LAB BLOOD BKR ORDERABLES Fin al Result [address] [address] * TSH (11/23/2021 8:19 AM EST) TSH 2.25 0.27 - 4.20 uIU/mL [facility] Blood 11/23/2021 8:19 AM EST 11/23/2021 8:25 AM EST Toni Piedra DO LAB BLOOD BKR ORDERABLES Fin al Result Performing Organization Address City/[facility]/ZIP Co de Phone Number [address] [address] * Glucose (11/23/2021 8:19 AM EST) GLUCOSE 93 70 - 99 mg/dL [facility] Blood 11/23/2021 8:19 AM EST 11/23/2021 8:25 AM EST Toni Piedra DO LAB BLOOD BKR ORDERABLES Fin al Result Performing Organization Address [facility] de Phone Number [address] [address] * (ABNORMAL) Lipid panel (11/23/2021 8:19 AM EST) HDL 42 mg/dL [facility] Comment: Interpretation <40 mg/dL: Low HDL cholesterol (major risk factor for CHD) Greater than or equal to 60 mg/dL: High HDL cholesterol ( negative risk factor for CHD) HDL - cholesterol is affected by a number of factors, e.g. smoking, excerise, hormones, sex and age. CHOLESTEROL 199 0 - 240 mg/dL [facility] TRIGLYCERIDES 165(H) 30 - 160 mg/dL [facility] LDL 124 50 - 129 mg/dL [facility] Comment: LDL levels in terms of risk for coronary heart disease: <100 mg/dL: Optimal 100-129 mg/dL: Near or above optimal 130-159 mg/dL: Borderline high 160-189 mg/dL: High >190 mg/dL: Very High CARDIAC RISK RATIO 4.7 3.4 - 5.0 C [facility] Blood 11/23/2021 8:19 AM EST 11/23/2021 8:25 AM EST Toni Piedra DO LAB BLOOD BKR ORDERABLES Fin al Result [facility] [address] [place] [address] * CBC and differential (11/23/2021 8:19 AM EST) WBC 6.23 4.00 - 11.00 K/uL [facility] RBC 4.75 3.90 - 5.69 M/uL [facility] HGB 15.4 12.4 - 17.3 g/dL [facility] HCT 43.3 37.0 - 51.0 % [facility] PLT 223 140 - 430 K/uL [facility] MCV 91.2 78.0 - 97.0 fL [facility] MCH 32.4 25.0 - 33.0 pg [facility] MCHC 35.6 32.0 - 36.0 g/dL [facility] RDW 12.5 11.0 - 15.0 % [facility] MPV 9.9 8.4 - 12.8 fl [facility] NRBC 0.00 0 /100 WBCs [facility] ABSOLUTE NRBC 0.00 0 K/uL [facility] DIFF METHOD Auto [facility] NEUTS 57.1 43.0 - 75.0 % [facility] LYMPHS 27.6 18.2 - 47.4 % [facility] MONOS 10.4 4.00 - 11.00 % [facility] EOS 3.9 0.0 - 8.0 % [facility] BASOS 0.5 0.0 - 2.0 % [facility] Granulocytes, immature (%) 0.5 0.0 - 0.9 % [facility] ABSOLUTE NEUTS 3.56 1.80 - 7.70 K/uL [facility] ABSOLUTE LYMPHS 1.72 1.00 - 3.10 K/uL [facility] ABSOLUTE MONOS 0.65 0.20 - 0.80 K/uL [facility] ABSOLUTE EOS 0.24 0.00 - 0.80 K/uL [facility] ABSOLUTE BASOS 0.03 0.00 - 0.09 K/uL [facility] Granulocytes, immature 0.03 0.00 - 0.05 K/uL [facility] Blood 11/23/2021 8:19 AM EST 11/23/2021 8:25 AM EST us Toni Piedra DO LAB BLOOD BKR ORDERABLES Fin al Result [facility] [address] [place] [address] documented in this encounter Visit Diagnoses Diagnosis Hypertension, unspecified type- Primary Screening for prostate cancer Special screening for malignant neoplasm of prostate Routine general medical examination at a health care facility Pure hypercholesterolemia Non morbid obesity due to excess calories Benign prostatic hyperplasia, unspecified whether lower urinary tract symptoms present documented in this encounter Care Teams Wash Plant Operator Relationship Specialty Start Date End Date Toni Piedra DO [address] [place] [address] PCP - General Internal Medicine 07/06/20 12/18/24 Benoit Burris MD [address] [place] [address] PCP - General Internal Medicine 12/19/24 documented as of this encounter Additional Source Comments The information contained in this document represents components of the legal health record. It is not the complete legal health record.[facility]
--- OUTSIDE RECORDS SUMMARY | 2025-10-07 19:38 | XMS_ITS | Encounter Summary ---
Author Organization [facility] Address [address] [place] [address] Phone Care Team Providers Care Mixer Diamond Powder Name Role Phone Benoit Burris MD Primary Care Provid er Encounter Details Date Type Department Care Team (Late st Contact Info) Description 12/19/2024 Procedure Pass [facility], Ct Scan - [facility] [address] [place] [address] Social History Tobacco Use Types Packs/Day Years [...] Description 12/27/2025 10:00 AM EST Office Visit [facility] [address] 3rd Floor, [address] [place] [address] Jeannine Arambula DNP [address] [place] [address] 06/26/2026 10:20 AM EDT Office Visit [address] 3[address] [facility], [address] [place] [address] Anjum Negrete MD [address] [place] [address], [address] [address] documented as of this encounter Visit Diagnoses Not on filedocumented in this encounter Care Teams Mixer Diamond Powder Relationship Specialty Start Date End Date Benoit Burris MD [address] [place] [address] [address] PCP - General Internal Medicine 12/19/24 documented as of this encounter Additional Source Comments The information contained in this document represents components of the legal health record. It is not the complete legal health record.[facility]
== END 2025-10-07 15:34 | disposition home or self-care (01) ==
LOC: HO.HMCSH 14:50
PROVIDERS: PCP Physician Assistant Medical; Visit Provider Internal Medicine
DX: I10 Essential (primary) hypertension (principal); Z23 Encounter for immunization

== ENCOUNTER → 2025-10-07 14:49 | Outpatient (BNVA) | payer MEDICARE, SELFPAY | PROVIDERS: PCP Physician Assistant Medical; Visit Provider Internal Medicine | DX: I10 Essential (primary) hypertension (principal); E78.5 Hyperlipidemia, unspecified; Z13.31 Encounter for screening for depression; Z13.39 Encounter for screening examination for other mental health and behavioral disorders; Z28.89 Immunization not carried out for other reason | CPT/HCPCS: 90471; 96127; 99212 ==

== ENCOUNTER 2025-10-08 07:55 | Outpatient (REF) | payer MEDICARE, SELFPAY ==
--- OUTSIDE RECORDS SUMMARY | 2025-10-08 08:04 | XMS_ITS | Encounter Summary ---
Author Organization [facility] Address [address] [employer] [facility] [address] [place] [address] Phone Care Team Providers Care Lap Machine Operator Name Role Phone Toni Piedra DO Primary Care Provider Benoit Burris MD Primary Care Provid er Encounter Details Date Type Department Care Team (Late st Contact Info) Description 11/04/2022 Procedure Pass Echo Lab [address] [place] [address] Social History Tobacco Use Types Packs/Day Years [...] Description 12/27/2025 10:00 AM EST Office Visit [facility] [address] 3rd [facility], [address] [place] [address] [phone] Jeannine Arambula DNP 22 [facility], [address] [address] 06/26/2026 10:20 AM EDT Office Visit [facility] [address] 3rd [facility], [address] [place] [address] Anjum Negrete MD [address] [address] documented as of this encounter Visit Diagnoses Not on filedocumented in this encounter Care Teams Lap Machine Operator Relationship Specialty Start Date End Date Toni Piedra DO [address] [place] [address] PCP - General Internal Medicine 07/06/20 12/18/24 Benoit Burris MD [address] [place] [address] PCP - General Internal Medicine 12/19/24 documented as of this encounter Additional Source Comments The information contained in this document represents components of the legal health record. It is not the complete legal health record.[facility]
--- OUTSIDE RECORDS SUMMARY | 2025-10-08 08:04 | XMS_ITS | Clinical Summary ---
Author Organization [facility] Address [address] [employer] [facility] [address] [place] [address] Phone Care Team Providers Care Line Lead Name Role Phone Benoit Burris MD Primary Care Provid er Allergies Active Allergy Reactions Criticality Noted Date Comments Hydrochlorothiazide 10/18/2022 Other reaction(s): rise in uric acid level Medications aspirin 81 mg chewable tablet Take 81 mg by mouth daily. Active multivitamins-m inerals-folic jevu-yorefbz-rr tein (COMPLETE SENIOR) 0.4-300-250 mg-mcg-mcg Tab Take 1 tablet by mouth daily. Active cholecalciferol (VITAMIN D3) 25 MCG (1,000 unit) tablet Take 1,000 Units by mouth daily. Active omega 6-cgf-edg-fish oil 1,000 mg (120 mg-180 mg) Cap [...] reducing his ASCVD risk score. Information on [employer]Mobissimo[employer] weight management program given. - discussed statin [...] Description 12/27/2025 10:00 AM EST Office Visit [facility] 22 [facility] 3rd Floor, [address] [place] [address] Jeannine Arambula, SUDHA 22 [facility], [address] [place] [address] 06/26/2026 10:20 AM EDT Office Visit [facility] [address] [place] [address] 3rd Floor, [address] [place] [address] Anjum Negrete MD 22 [facility], [address] [place] [address] [email or web address] Health Maintenance Due Date Last Done Comments [...] EST) SODIUM 142 133 - 146 mmol/L [facility] CHLORIDE 101 96 - 108 mmol/L [facility] POTASSIUM 3.2(L) 3.3 - 5.1 mmol/L [facility] Comment:Specimen slightly he molyzed, result may be falsely elevated. CO2 27 21 - 35 mmol/L [facility] BUN 20(H) 6 - 19 mg/dL [facility] CREATININE 1.10 0.5 - 1.5 mg/dL [facility] GLUCOSE 110(H) 70 - 99 mg/dL [facility] CALCIUM 9.0 8.4 - 10.3 mg/dL [facility] EGFR 70 >59 mL/min/1.7 3m2 [facility] Comment:Estimated glomerular filtration rate calculated using the CKD-EPI refit equation. ANION GAP 17 10 - 20 mmol/L [facility] Blood 12/18/2024 11:4 8 PM EST 12/18/2024 11:52 PM EST us Gabriella Washington MD LAB BLOOD BKR ORDERABLES Fin al Result [facility] [address] [place], [place] [phone] * (ABNORMAL) Lipid panel (11/23/2021 8:19 AM EST) HDL 42 mg/dL [facility] Comment: Interpretation <40 mg/dL: Low HDL cholesterol (major risk factor for CHD) Greater than or equal to 60 mg/dL: High HDL cholesterol ( negative risk factor for CHD) HDL - cholesterol is affected by a number of factors, e.g. smoking, excerise, hormones, sex and age. CHOLESTEROL 199 0 - 240 mg/dL [facility] TRIGLYCERIDES 165(H) 30 - 160 mg/dL [facility] LDL 124 50 - 129 mg/dL [facility] Comment: LDL levels in terms of risk for coronary heart disease: <100 mg/dL: Optimal 100-129 mg/dL: Near or above optimal 130-159 mg/dL: Borderline high 160-189 mg/dL: High >190 mg/dL: Very High CARDIAC RISK RATIO 4.7 3.4 - 5.0 C [facility] Blood 11/23/2021 8:19 AM EST 11/23/2021 8:25 AM EST us Toni Piedra DO LAB BLOOD BKR ORDERABLES Fin al Result [facility] [address] [place], [place] [phone] from Last 3 Months or Most Recently Relevant to Health Maintenance Insurance BL[place] MEDICARE HMO BLUE REPLACEMENT MEDICARE PART A & B Member Subscriber Plan / Payer (Ef fective 2016-Present) Name:Pedro Kapoor Member ID:[id number] Relation to Subscriber:Self Name:Pedro Kapoor Subscriber ID:[id number] Payer ID:[id number] Group ID:Not on file Type:Medicare Address: [employer] [address] [place] [address] MEDICARE PART A & [place] [address] MEDICARE HMO BLUE REPLACEMENT [place] [address] MEDICARE HMO BLUE REPLACEMENT MEDICARE HMO BLUE REPLACEMENT MEDICARE PART A & B MEDICARE HMO BLUE REPLACEMENT MEDICARE PART A & B MEDICARE HMO BLUE REPLACEMENT MEDICARE PART A & B [place] BL[place] REPLACEMENT MEDICARE PART A & B Care Teams Line Lead Relationship Specialty Start Date End Date Benoit Burris MD [address] [place] [address] [phone] PCP - General Internal Medicine 12/19/24 Additional Source Comments The information contained in this document represents components of the legal health record. It is not the complete legal health record.[facility]
--- OUTSIDE RECORDS SUMMARY | 2025-10-08 08:04 | XMS_ITS | Encounter Summary ---
Author Organization [facility] Address [address] [employer] [facility] [address] [place] [address] Phone Care Team Providers Care Subacute Nurse Name Role Phone Toni Piedra DO Primary Care Provider [phone] Benoit Burris MD Primary Care Provid er Encounter Details Date Type Department Care Team (Late st Contact Info) Description 04/27/2022 Procedure Pass Echo Lab [address] [place] [address] Social History Tobacco Use Types Packs/Day Years [...] Description 12/27/2025 10:00 AM EST Office Visit [facility] [address]ngela [address] 3rd [facility], [address] [place] [phone] Jeannine Arambula DNP 22 [facility], [address] [address] 06/26/2026 10:20 AM EDT Office Visit [facility] [address] [place] [address] 3rd [facility], [address] [place] [address] Anjum Negrete MD [address] [address] [email or web address] documented as of this encounter Visit Diagnoses Not on filedocumented in this encounter Care Teams Subacute Nurse Relationship Specialty Start Date End Date Toni Piedra DO [address] [place] [address] PCP - General Internal Medicine 07/06/20 12/18/24 Benoit Burris MD [address] [place] [address] PCP - General Internal Medicine 12/19/24 documented as of this encounter Additional Source Comments The information contained in this document represents components of the legal health record. It is not the complete legal health record.[facility]
--- OUTSIDE RECORDS SUMMARY | 2025-10-08 08:05 | XMS_ITS | Encounter Summary ---
Author Organization [facility] Address [address] [place] [address] Phone Care Team Providers Care Office Support Clerk Name Role Phone Toni Piedra DO Primary Care Provider [phone] Benoit Burris MD Primary Care Provid er Encounter Details Date Type Department Care Team (Late st Contact Info) Description 06/22/2024 Procedure Pass Echo Lab [address] [place] [address] Social History Tobacco Use Types Packs/Day Years [...] Description 12/27/2025 10:00 AM EST Office Visit [facility] [address] 3rd Floor, [address] [place] [address] Jeannine Arambula DNP 22 [facility], [address] [address] 06/26/2026 10:20 AM EDT Office Visit [facility] 22 [facility] 3rd Floor, [address] [place] [address] Anjum Negrete MD 22 [facility], [address] [address] documented as of this encounter Visit Diagnoses Not on filedocumented in this encounter Care Teams Office Support Clerk Relationship Specialty Start Date End Date Toni Piedra DO [address] [place] [address] PCP - General Internal Medicine 07/06/20 12/18/24 Benoit Burris MD [address] [place] [address] [address] PCP - General Internal Medicine 12/19/24 documented as of this encounter Additional Source Comments The information contained in this document represents components of the legal health record. It is not the complete legal health record.[facility]
--- OUTSIDE RECORDS SUMMARY | 2025-10-08 08:05 | XMS_ITS | Encounter Summary ---
Author Organization [facility] Address [address] [facility] [address] [place] [address] Phone Care Team Providers Care Medical Oncology Physician Name Role Phone Benoit Burris MD Primary Care Provid er Encounter Details Date Type Department Care Team (Late st Contact Info) Description 12/19/2024 Procedure Pass [facility], Ct Scan - [facility] [address] [place] [address] Social History Tobacco Use Types Packs/Day Years [...] Description 12/27/2025 10:00 AM EST Office Visit [facility] [address] 3rd Floor, [address] [place] [address] Jeannine Arambula DNP [address] [place] [address] 06/26/2026 10:20 AM EDT Office Visit [address] 3rd [facility], [address] [place] [address] Anjum Negrete MD [address] [place] [address], [address] [address] documented as of this encounter Visit Diagnoses Not on filedocumented in this encounter Care Teams Medical Oncology Physician Relationship Specialty Start Date End Date Benoit Burris MD [address] [place] [address] [address] PCP - General Internal Medicine 12/19/24 documented as of this encounter Additional Source Comments The information contained in this document represents components of the legal health record. It is not the complete legal health record.[facility]
--- OUTSIDE RECORDS SUMMARY | 2025-10-08 08:05 | XMS_ITS | Encounter Summary ---
Author Organization [facility] Address [address] [facility] [address] [place] [address] Phone Care Team Providers Care Ripsaw Matcher Name Role Phone Toni Piedra DO Primary Care Provider [phone] Benoit Burris MD Primary Care Provid er Encounter Details Date Type Department Care Team (Latest Contact Info) Description 11/23/2021 Transcribe Orders [address] [place] [address] Toni Piedra DO [address] [place], [place] [phone] Hypertension, unspecified type (Primary Dx); Screening for [...] Description 12/27/2025 10:00 AM EST Office Visit [facility] [place] 3rd Floor, [address] [place], [place] [phone] Jeannine Arambula DNP 22 [facility], [address] [place] [address] 06/26/2026 10:20 AM EDT Office Visit [facility] [address] [place] [address] 3rd Floor, [address] [place] [address] Anjum Negrete MD 22 [facility], [address] [place] [address] [email or web address] documented as of this encounter Results * PSA (screening) (11/23/2021 8:19 AM EST) PSA 1.86 0 - 4.00 ng/mL [facility] Blood 11/23/2021 8:19 AM EST 11/23/2021 8:25 AM EST [facility] LAB [facility]LOOD BKR ORDERABLES Fin al Result [address] [address] * 25-OH vitamin D (11/23/2021 8:19 AM EST) 25 [place] VIT D (TOTAL) 33 30 - 60 ng/mL [facility] Blood 11/23/2021 8:19 AM EST 11/23/2021 8:25 AM EST [employer] LAB BLOOD BKR ORDERABLES Fin al Result [address] [address] * TSH (11/23/2021 8:19 AM EST) TSH 2.25 0.27 - 4.20 uIU/mL [facility] Blood 11/23/2021 8:19 AM EST 11/23/2021 8:25 AM EST Toni Piedra DO LAB BLOOD BKR ORDERABLES Fin al Result Performing Organization Address City/[facility]/ZIP Co de Phone Number [address] [address] * Glucose (11/23/2021 8:19 AM EST) GLUCOSE 93 70 - 99 mg/dL [facility] Blood 11/23/2021 8:19 AM EST 11/23/2021 8:25 AM EST Toni Piedra DO LAB BLOOD BKR ORDERABLES Fin al Result Performing Organization Address [facility] de Phone Number [address] [address] * (ABNORMAL) Lipid panel (11/23/2021 8:19 AM EST) HDL 42 mg/dL [facility] Comment: Interpretation <40 mg/dL: Low HDL cholesterol (major risk factor for CHD) Greater than or equal to 60 mg/dL: High HDL cholesterol ( negative risk factor for CHD) HDL - cholesterol is affected by a number of factors, e.g. smoking, excerise, hormones, sex and age. CHOLESTEROL 199 0 - 240 mg/dL [facility] TRIGLYCERIDES 165(H) 30 - 160 mg/dL [facility] LDL 124 50 - 129 mg/dL [facility] Comment: LDL levels in terms of risk for coronary heart disease: <100 mg/dL: Optimal 100-129 mg/dL: Near or above optimal 130-159 mg/dL: Borderline high 160-189 mg/dL: High >190 mg/dL: Very High CARDIAC RISK RATIO 4.7 3.4 - 5.0 C [facility] Blood 11/23/2021 8:19 AM EST 11/23/2021 8:25 AM EST Toni Piedra DO LAB BLOOD BKR ORDERABLES Fin al Result [facility] [address] [place] [address] * CBC and differential (11/23/2021 8:19 AM EST) WBC 6.23 4.00 - 11.00 K/uL [facility] RBC 4.75 3.90 - 5.69 M/uL [facility] HGB 15.4 12.4 - 17.3 g/dL [facility] HCT 43.3 37.0 - 51.0 % [facility] PLT 223 140 - 430 K/uL [facility] MCV 91.2 78.0 - 97.0 fL [facility] MCH 32.4 25.0 - 33.0 pg [facility] MCHC 35.6 32.0 - 36.0 g/dL [facility] RDW 12.5 11.0 - 15.0 % [facility] MPV 9.9 8.4 - 12.8 fl [facility] NRBC 0.00 0 /100 WBCs [facility] ABSOLUTE NRBC 0.00 0 K/uL [facility] DIFF METHOD Auto [facility] NEUTS 57.1 43.0 - 75.0 % [facility] LYMPHS 27.6 18.2 - 47.4 % [facility] MONOS 10.4 4.00 - 11.00 % [facility] EOS 3.9 0.0 - 8.0 % [facility] BASOS 0.5 0.0 - 2.0 % [facility] Granulocytes, immature (%) 0.5 0.0 - 0.9 % [facility] ABSOLUTE NEUTS 3.56 1.80 - 7.70 K/uL [facility] ABSOLUTE LYMPHS 1.72 1.00 - 3.10 K/uL [facility] ABSOLUTE MONOS 0.65 0.20 - 0.80 K/uL [facility] ABSOLUTE EOS 0.24 0.00 - 0.80 K/uL [facility] ABSOLUTE BASOS 0.03 0.00 - 0.09 K/uL [facility] Granulocytes, immature 0.03 0.00 - 0.05 K/uL [facility] Blood 11/23/2021 8:19 AM EST 11/23/2021 8:25 AM EST us Toni Piedra DO LAB BLOOD BKR ORDERABLES Fin al Result [facility] [address] [place] [address] documented in this encounter Visit Diagnoses Diagnosis Hypertension, unspecified type- Primary Screening for prostate cancer Special screening for malignant neoplasm of prostate Routine general medical examination at a health care facility Pure hypercholesterolemia Non morbid obesity due to excess calories Benign prostatic hyperplasia, unspecified whether lower urinary tract symptoms present documented in this encounter Care Teams Ripsaw Matcher Relationship Specialty Start Date End Date Toni Piedra DO [address] [place] [address] PCP - General Internal Medicine 07/06/20 12/18/24 Benoit Burris MD [address] [place] [address] PCP - General Internal Medicine 12/19/24 documented as of this encounter Additional Source Comments The information contained in this document represents components of the legal health record. It is not the complete legal health record.[facility]
--- OUTSIDE RECORDS SUMMARY | 2025-10-08 08:05 | XMS_ITS | Encounter Summary ---
Author Organization [facility] Address [address] [place] [address] Phone Care Team Providers Care Manager Of Product Name Role Phone Benoit Burris MD Primary Care Provid er Encounter Details Date Type Department Care Team (Late st Contact Info) Description 12/19/2024 Procedure Pass [facility], Ct Scan - [facility] [address] [place] [address] Social History Tobacco Use Types Packs/Day Years [...] Description 12/27/2025 10:00 AM EST Office Visit [facility] [address] 3rd Floor, [address] [place] [address] Jeannine Arambula DNP [address] [place] [address] 06/26/2026 10:20 AM EDT Office Visit [address] 3rd [facility], [address] [place] [address] Anjum Negrete MD [address] [place] [address], [address] [address] documented as of this encounter Visit Diagnoses Not on filedocumented in this encounter Care Teams Manager Of Product Relationship Specialty Start Date End Date Benoit Burris MD [address] [place] [address] [address] PCP - General Internal Medicine 12/19/24 documented as of this encounter Additional Source Comments The information contained in this document represents components of the legal health record. It is not the complete legal health record.[facility]
--- OUTSIDE RECORDS SUMMARY | 2025-10-08 08:05 | XMS_ITS | Encounter Summary ---
Author Organization [facility] Address [address] [place] [address] Phone Care Team Providers Care Peoplesoft Crm Developer Name Role Phone Toni Piedra DO Primary Care Provider [phone] Benoit Burris MD Primary Care Provid er Encounter Details Date Type Department Care Team (Late st Contact Info) Description 06/09/2023 Procedure Pass [facility] [place] [place] [address] Social History Tobacco Use Types Packs/Day Years [...] Description 12/27/2025 10:00 AM EST Office Visit [facility] [address] 3rd Floor, [address] [place] [address] Jeannine Arambula DNP 22 [facility], [address] [address] 06/26/2026 10:20 AM EDT Office Visit [facility] 22 [facility] 3rd Floor, [address] [place] [address] Anjum Negrete MD 22 [facility], [address] [address] documented as of this encounter Visit Diagnoses Not on filedocumented in this encounter Care Teams Peoplesoft Crm Developer Relationship Specialty Start Date End Date Toni Piedra DO [address] [place] [address] PCP - General Internal Medicine 07/06/20 12/18/24 Benoit Burris MD [address] [place] [address] [address] PCP - General Internal Medicine 12/19/24 documented as of this encounter Additional Source Comments The information contained in this document represents components of the legal health record. It is not the complete legal health record.[facility]
--- OUTSIDE RECORDS SUMMARY | 2025-10-08 08:05 | XMS_ITS | Encounter Summary ---
Author Organization [facility] Address [address] [facility] [address] [place] [address] Phone Care Team Providers Care Hockey Scout Name Role Phone Benoit Burris MD Primary Care Provid er Reason for Referral * MRI/CAT Scan - Closed Specialty Diagnoses / Procedures Referred By Chris llanos Referred To Contact Radiology Diagnoses Precordial pain Procedures NC Myocardial Perfusion Pharmacologic Stress Multiple NC Myocardial Perfusion Exercise Multiple Anjum Negrete MD Phone: tel: fax: mailto: Referral ID Status Reason Start Date Expiration Date Visits Re quested Visits Authorized [id number] Closed 01/21/2025 03/21/2025 1 1 Encounter Details Date Type Department Care Team (Latest Contact Info) Description 01/22/2025 Ancillary Orders [facility] [address] [place] [address] 3rd Floor, [address] [place] [address] Anjum Negrete MD 22 [facility], [address] [place] [address] [email or web address] Precordial pain (Primary Dx); Other chest pain; [...] Description 12/27/2025 10:00 AM EST Office Visit [facility] [address] [place] [address], [address] [address] Jeannine Arambula DNP [address] [place] [address] 06/26/2026 10:20 AM EDT Office Visit [address] 3rd Floor, [address] [place] [address] Anjum Negrete MD [address] [place] [address] documented as of this encounter Results * [...] of Tc99m Sestamibi by Stephen Oneill, the dairy technologist. 1. EKG: Baseline EKG showed sinus [...] in SPECT format, reconstructed tomographically and compared [id number] in short axis, horizontal long axis and [...] rupture documented in this encounter Care Teams Hockey Scout Relationship Specialty Start Date End Date Benoit Burris MD [address] [place] [address] PCP - General Internal Medicine 12/19/24 documented as of this encounter Additional Source Comments The information contained in this document represents components of the legal health record. It is not the complete legal health record.[facility]
[2025-10-08 10:21] LABS: Appearance Urine Clear; Glucose Urine UA Negative (Negative); PH 5.5 (5.0-9.0); Specific Gravity - Urine 1.020 (1.005-1.025); UMIC TRIGGER UA YES
[2025-10-08 10:23] LABS: Hematocrit 46.6 % (42.0-52.0); Hemoglobin 15.5 g/dl (14.0-18.0); Mean Corpuscular HGB Conc 33.3 g/dl (31.0-36.0); Mean Corpuscular Hemoglobin 31.3 pg (27.0-33.0); Mean Corpuscular Volume 94.0 fL (80.0-98.0); NRBC Abs Auto 0.000 X10*3/uL (0.0-0.012); NRBC Pct Auto 0.0 /100WBC (0.0-0.2); Platelet Count 214 X10*3/uL (160-400); Red Blood Count 4.96 X10*6/uL (4.60-5.80); White Blood Count 6.7 X10*3/uL (4.8-10.8)
[2025-10-08 10:48] LABS: Alanine Aminotransferase 37 U/L (0-40); Albumin Level 4.2 g/dL (3.5-5.0); Alkaline Phosphatase 88 U/L (39-117); Anion Gap 12 (12-20); Aspartate Amino Transferase 30 U/L (5-37); Blood Urea Nitrogen 23 mg/dL (9-16); Calcium 9.2 mg/dL (8.4-10.2); Carbon Dioxide 28 mmol/L (22-29); Chloride 107 mmol/L (96-108); Cholesterol 126 mg/dL (<200); Estimated Glomerular Filt Rate > 60; HDL Cholesterol 44 mg/dL (>40); Potassium 3.5 mmol/L (3.3-5.1); Sodium 143 mmol/L (135-145); Total Protein 6.5 g/dL (6.5-8.0); Triglycerides 89 mg/dL (<150)
[2025-10-08 11:07] LABS: Thyroid Stimulating Hormone 1.94 uIU/mL (0.32-4.0)
== END 2025-10-08 07:56 | disposition home or self-care (01) ==
LOC: HO.HMGCLDS 07:55
PROVIDERS: PCP Internal Medicine; Visit Provider Internal Medicine
DX: I10 Essential (primary) hypertension (principal)
CPT/HCPCS: 36415; 80048; 80061; 80076; 81001; 84443; 85027

== ENCOUNTER 2025-11-11 08:09 | Outpatient (AMB) | payer MEDICARE, SELFPAY ==
--- OUTSIDE RECORDS SUMMARY | 2025-11-11 08:11 | XMS_ITS | Encounter Summary ---
Author Organization [facility] Address [address] [facility] [address] [place] [address] Phone Care Team Providers Care Community Relations Manager Name Role Phone Benoit Burris MD Primary Care Provid er Encounter Details Date Type Department Care Team (Late st Contact Info) Description 12/19/2024 Procedure Pass [facility], Ct Scan - [facility] 30 [place] [address] Social History Tobacco Use Types Packs/Day Years [...] Description 12/27/2025 10:00 AM EST Office Visit [facility] [address] [place] [address] Dr 3rd Floor, [address] [place] [address] Jeannine Arambula, SUDHA [address] [address] Simón Benjamin, SUPERVISOR PLASTIC SHEETS [address] [place] [address] 06/26/2026 10:20 AM EDT Office Visit [facility] 22 [facility] 3rd Floor, [address] [place] [address] Anjum Negrete MD [address] [place] [address], [address] [address] documented as of this encounter Visit Diagnoses Not on filedocumented in this encounter Care Teams Community Relations Manager Relationship Specialty Start Date End Date Benoit Burris MD [address] [place] [address] [address] PCP - General Internal Medicine 12/19/24 documented as of this encounter Additional Source Comments The information contained in this document represents components of the legal health record. It is not the complete legal health record.[facility]
--- OUTSIDE RECORDS SUMMARY | 2025-11-11 08:11 | XMS_ITS | Encounter Summary ---
Author Organization [facility] Address [address] [facility] [address] [place] [address] Phone Care Team Providers Care Securities Consultant Name Role Phone Toni Piedra DO Primary Care Provider Benoit Burris MD Primary Care Provid er Encounter Details Date Type Department Care Team (Late st Contact Info) Description 11/04/2022 Procedure Pass [facility] [address] [place] [address] [place] [address] Social History Tobacco Use Types Packs/Day Years [...] Description 12/27/2025 10:00 AM EST Office Visit [facility] [address]rd Floor, [address] [place] [address] Jeannine Arambula, SUDHA 22 [facility], [address] [place] [address] Simón Benjamin, COLLAR SETTER OVERLOCK [address] [place] [address] 06/26/2026 10:20 AM EDT Office Visit [facility] 22 [facility] 3rd Floor, [address] [place] [address] Anjum Negrete MD 22 [facility], [address] [address] [email or web address] documented as of this encounter Visit Diagnoses Not on filedocumented in this encounter Care Teams Securities Consultant Relationship Specialty Start Date End Date Toni Piedra DO [address] [place] [address] PCP - General Internal Medicine 07/06/20 12/18/24 Benoit Burris MD [address] [place] [address] PCP - General Internal Medicine 12/19/24 documented as of this encounter Additional Source Comments The information contained in this document represents components of the legal health record. It is not the complete legal health record.[facility]
--- OUTSIDE RECORDS SUMMARY | 2025-11-11 08:11 | XMS_ITS | Encounter Summary ---
Author Organization [facility] Address [address] [place] [address] Phone Care Team Providers Care Tank Setter Helper Name Role Phone Benoit Burris MD Primary Care Provid er Encounter Details Date Type Department Care Team (Late st Contact Info) Description 12/19/2024 Procedure Pass [facility], Ct Scan - [facility] 30 [place] [address] Social History Tobacco Use Types Packs/Day Years [...] Description 12/27/2025 10:00 AM EST Office Visit [facility] [address] [place] [address] Dr 3rd Floor, [address] [place] [address] Jeannine Arambula, SUDHA [address] [address] Simón Benjamin, FILTERATION OPERATOR [address] [place] [address] 06/26/2026 10:20 AM EDT Office Visit [facility] 22 [facility] 3rd Floor, [address] [place] [address] Anjum Negrete MD [address] [place] [address], [address] [address] documented as of this encounter Visit Diagnoses Not on filedocumented in this encounter Care Teams Tank Setter Helper Relationship Specialty Start Date End Date Benoit Burris MD [address] [place] [address] [address] PCP - General Internal Medicine 12/19/24 documented as of this encounter Additional Source Comments The information contained in this document represents components of the legal health record. It is not the complete legal health record.[facility]
--- OUTSIDE RECORDS SUMMARY | 2025-11-11 08:11 | XMS_ITS | Clinical Summary ---
Author Organization [facility] Address [address] [facility] [address] [place] [address] Phone Care Team Providers Care Bank Consultant Name Role Phone Benoit Burris MD Primary Care Provid er Allergies Active Allergy Reactions Criticality Noted Date Comments Hydrochlorothiazide 10/18/2022 Other reaction(s): rise in uric acid level Medications aspirin 81 mg chewable tablet Take 81 mg by mouth daily. Active multivitamins-m inerals-folic gdra-hvirktj-df tein (COMPLETE SENIOR) 0.4-300-250 mg-mcg-mcg Tab Take 1 tablet by mouth daily. Active cholecalciferol (VITAMIN D3) 25 MCG (1,000 unit) tablet Take 1,000 Units by mouth daily. Active omega 2-okq-pkd-fish oil 1,000 mg (120 mg-180 mg) Cap [...] reducing his ASCVD risk score. Information on [employer] IPA weight management program given. - discussed statin [...] Description 12/27/2025 10:00 AM EST Office Visit [facility] 22 [facility] 3rd Floor, [address] [place] [address] Jeannine Arambula, [facility] 22 [facility], [address] [place] [address] Simón Benjamin, LIGHT RAIL SIGNAL TECHNICIAN [address] [place] [address] 06/26/2026 10:20 AM EDT Office Visit [facility] [address] [place] [address] 3rd Floor, [address] [place] [address] Anjum Negreet MD 22 [facility], [address] [place] [address] [email or web address] Health Maintenance Due Date Last Done Comments [...] EST) SODIUM 142 133 - 146 mmol/L [facility] CHLORIDE 101 96 - 108 mmol/L [facility] POTASSIUM 3.2(L) 3.3 - 5.1 mmol/L [facility] Comment:Specimen slightly he molyzed, result may be falsely elevated. CO2 27 21 - 35 mmol/L [facility] BUN 20(H) 6 - 19 mg/dL [facility] CREATININE 1.10 0.5 - 1.5 mg/dL [facility] GLUCOSE 110(H) 70 - 99 mg/dL [facility] CALCIUM 9.0 8.4 - 10.3 mg/dL [facility] EGFR 70 >59 mL/min/1.7 3m2 [facility] Comment:Estimated glomerular filtration rate calculated using the CKD-EPI refit equation. ANION GAP 17 10 - 20 mmol/L [facility] Blood 12/18/2024 11:4 8 PM EST 12/18/2024 11:52 PM EST us Gabriella [place] MD LAB BLOOD BKR ORDERABLES Fin al Result [facility] 30 [place], [place] [id number] * (ABNORMAL) Lipid panel (11/23/2021 8:19 AM EST) HDL 42 mg/dL [facility] Comment: Interpretation <40 mg/dL: Low HDL cholesterol (major risk factor for CHD) Greater than or equal to 60 mg/dL: High HDL cholesterol ( negative risk factor for CHD) HDL - cholesterol is affected by a number of factors, e.g. smoking, excerise, hormones, sex and age. CHOLESTEROL 199 0 - 240 mg/dL [facility] TRIGLYCERIDES 165(H) 30 - 160 mg/dL [facility] LDL 124 50 - 129 mg/dL [facility] Comment: LDL levels in terms of risk for coronary heart disease: <100 mg/dL: Optimal 100-129 mg/dL: Near or above optimal 130-159 mg/dL: Borderline high 160-189 mg/dL: High >190 mg/dL: Very High CARDIAC RISK RATIO 4.7 3.4 - 5.0 C [facility] Blood 11/23/2021 8:19 AM EST 11/23/2021 8:25 AM EST Toni Piedra DO LAB BLOOD BKR ORDERABLES Fin al Result [facility] 30 [place], [place] [id number] from Last 3 Months or Most Recently Relevant to Health Maintenance Insurance [place]IC[place] H[place] BLUE REPLACEMENT MEDICARE PART A & B MEDICARE PART A & [place] [address] [place] [address] MEDICARE HMO [place]UE [place] [address] [place] [address] MEDICARE HMO BLUE REPLACEMENT MEDICARE PART A & [place] [id number] [place] BLUE RE[place]AC[place] MEDICARE PART A & B MEDICARE PART A & B [place] MEDICARE PART A & B Care Teams Bank Consultant Relationship Specialty Start Date End Date Benoit Burris MD [address] [place] [address] PCP - General Internal Medicine 12/19/24 Additional Source Comments The information contained in this document represents components of the legal health record. It is not the complete legal health record.[facility]
--- OUTSIDE RECORDS SUMMARY | 2025-11-11 08:11 | XMS_ITS | Encounter Summary ---
Author Organization [facility] Address [address] [facility] [address] [place] [address] Phone Care Team Providers Care Supervisor Metal Placing Name Role Phone Toni Piedra DO Primary Care Provider Benoit Burris MD Primary Care Provid er Encounter Details Date Type Department Care Team (Late st Contact Info) Description 04/27/2022 Procedure Pass [facility] [address] [place] [address] [place] [address] Social History Tobacco Use Types Packs/Day Years [...] 10:00 AM EST Office Visit [facility] [address] [place] 3rd Floor, [address] [place] [address] Jeannine Arambula, SUDHA 22 [facility], [address] [place] [address] Simón Benjamin, THERAPIST RADIATION [address] [place] [address] 06/26/2026 10:20 AM EDT Office Visit [facility] [address] [facility] 3rd Floor, [address] [place] [address] Anjum Negrete MD 22 [facility], [address] [address] [email or web address] documented as of this encounter Visit Diagnoses Not on filedocumented in this encounter Care Teams Supervisor Metal Placing Relationship Specialty Start Date End Date Toni Piedra DO [address] [place] [address] PCP - General Internal Medicine 07/06/20 12/18/24 Benoit Burris MD [address] [place] [address] PCP - General Internal Medicine 12/19/24 documented as of this encounter Additional Source Comments The information contained in this document represents components of the legal health record. It is not the complete legal health record.[facility]
--- OUTSIDE RECORDS SUMMARY | 2025-11-11 08:11 | XMS_ITS | Encounter Summary ---
Author Organization [facility] Address [address] [place] [address] Phone Care Team Providers Care Servicer Name Role Phone Toni Piedra DO Primary Care Provider [phone] Benoit Burris MD Primary Care Provid er Encounter Details Date Type Department Care Team (Late st Contact Info) Description 06/09/2023 Procedure Pass [facility] [address] [place] [address] Social History Tobacco Use Types Packs/Day Years [...] 10:00 AM EST Office Visit [facility] [address] 3rd Floor, [address] [place] [address] Jeannine Arambula, SUDHA 22 [facility], [address] [address] Simón Benjamin, FAMILY SERVICE COUNSELOR [address] [place] [address] 06/26/2026 10:20 AM EDT Office Visit [facility] 22 [facility] 3rd Floor, [address] [place] [address] Anjum Negrete MD 22 [facility], [address] [address] documented as of this encounter Visit Diagnoses Not on filedocumented in this encounter Care Teams Servicer Relationship Specialty Start Date End Date Toni Piedra DO [address] [place] [address] PCP - General Internal Medicine 07/06/20 12/18/24 Benoit Burris MD [address] [place] [address] PCP - General Internal Medicine 12/19/24 documented as of this encounter Additional Source Comments The information contained in this document represents components of the legal health record. It is not the complete legal health record.[facility]
--- OUTSIDE RECORDS SUMMARY | 2025-11-11 08:12 | XMS_ITS | Encounter Summary ---
Author Organization [facility] Address [address] [facility] [address] [place] [address] Phone Care Team Providers Care Processing Supervisor Name Role Phone Benoit Burris MD Primary Care Provid er Reason for Referral * MRI/CAT Scan - Closed Specialty Diagnoses / Procedures Referred By Chris llanos Referred To Contact Radiology Diagnoses Precordial pain Procedures NC Myocardial Perfusion Pharmacologic Stress Multiple NC Myocardial Perfusion Exercise Multiple Anjum Negrete MD Phone: tel: fax: [email or web address] Referral ID Status Reason Start Date Expiration Date Visits Re quested Visits Authorized [id number] Closed 01/21/2025 03/21/2025 1 1 Encounter Details Date Type Department Care Team (Latest Contact Info) Description 01/22/2025 Ancillary Orders [facility] [address] [place] [address] 3rd Floor, [address] [place] [address] Anjum Negrete MD 22 [facility], [address] [place] [address] [email or web address] Precordial pain (Primary Dx); Other chest pain; [...] Description 12/27/2025 10:00 AM EST Office Visit [facility] [address] [place] [address] [place] [address], [address] [place] [address] Jeannine Arambula, SUDHA [address] [place] [address] Simón Benjamin, GLAZIER APPRENTICE [address] [place] [address] 06/26/2026 10:20 AM EDT Office Visit [facility] [address] 3rd [facility], [address] [place] [address] Anjum Negrete MD 22 [facility], [address] [place] [address] [email or web address] documented as of this encounter Results * [...] seconds as per protocol by Alanis Moya (ANGEILKA), immediately followed by injection of Tc99m Sestamibi by Stephen Oneill, the nuclear medicine supervisor. 1. EKG: Baseline EKG showed sinus rhythm. [...] in SPECT format, reconstructed tomographically and compared [id number] in short axis, horizontal long axis and [...] twoyears. Compared to prior study no change. Anjum Negrete MD CV NM CARDIAC Final Result documented in this encounter Visit Diagnoses Diagnosis Precordial pain- Primary Precordial pain- Primary Other chest pain Primary hypertension Unspecified essential hypertension Aneurysm of ascending aorta without rupture documented in this encounter Care Teams Processing Supervisor Relationship Specialty Start Date End Date Benoit Burris MD [address] [place] [address] PCP - General Internal Medicine 12/19/24 documented as of this encounter Additional Source Comments The information contained in this document represents components of the legal health record. It is not the complete legal health record.[facility]
--- OUTSIDE RECORDS SUMMARY | 2025-11-11 08:12 | XMS_ITS | Encounter Summary ---
Author Organization [facility] Address [address] [facility] [address] [place] [address] Phone Care Team Providers Care Auto Service Representative Name Role Phone Toni Piedra DO Primary Care Provider [phone] Benoit Burris MD Primary Care Provid er Encounter Details Date Type Department Care Team (Latest Contact Info) Description 11/23/2021 Transcribe Orders [address] [place] [address] Toni Piedra DO [address] [place], [place] [phone] Hypertension, unspecified type (Primary Dx); Screening for [...] Description 12/27/2025 10:00 AM EST Office Visit [facility] [address] [place] [address] 3rd Floor, [address] [place], [place] [phone] Jeannine Arambula, SUDHA 22 [facility], [address] [place] [address] Simón Benjamin, AUTOMOTIVE PRODUCT SPECIALIST [address] [place] [address] 06/26/2026 10:20 AM EDT Office Visit [facility] [address] [place] [address] 3rd Floor, [address] [place] [address] Anjum Negrete MD 22 [facility], [address] [address] [email or web address] documented as of this encounter Results * PSA (screening) (11/23/2021 8:19 AM EST) PSA 1.86 0 - 4.00 ng/mL [facility] Blood 11/23/2021 8:19 AM EST 11/23/2021 8:25 AM EST us Toni Piedra DO LAB BLOOD BKR ORDERABLES Fin al Result Performing Organization Address City/[facility]/ZIP Co de Phone Number [address] [address] * 25-OH vitamin D (11/23/2021 8:19 AM EST) 25 [place] VIT D (TOTAL) 33 30 - 60 ng/mL [facility] Blood 11/23/2021 8:19 AM EST 11/23/2021 8:25 AM EST Toni Piedra DO LAB BLOOD BKR ORDERABLES Fin al Result Performing Organization Address [facility]/ZIP Co de Phone Number [address] [address] * TSH (11/23/2021 8:19 AM EST) TSH 2.25 0.27 - 4.20 uIU/mL [facility] Blood 11/23/2021 8:19 AM EST 11/23/2021 8:25 AM EST Toni Piedra LAB BLOOD BKR ORDERABLES Fin al Result Performing Organization Address [facility] Co de Phone Number [address] [address] * Glucose (11/23/2021 8:19 AM EST) GLUCOSE 93 70 - 99 mg/dL [facility] Blood 11/23/2021 8:19 AM EST 11/23/2021 8:25 AM EST Toni [facility] LAB BLOOD BKR ORDERABLES Fin al Result Performing Organization Address [facility] de Phone Number [address] [address] * (ABNORMAL) Lipid panel (11/23/2021 8:19 AM EST) HDL 42 mg/dL [facility] Comment: Interpretation <40 mg/dL: Low HDL cholesterol (major risk factor for CHD) Greater than or equal to 60 mg/dL: High HDL cholesterol ( negative risk factor for CHD) HDL - cholesterol is affected by a number of factors, e.g. smoking, excerise, hormones, sex and age. CHOLESTEROL 199 0 - 240 mg/dL [facility] TRIGLYCERIDES 165(H) 30 - 160 mg/dL [facility] LDL 124 50 - 129 mg/dL [facility] Comment: LDL levels in terms of risk for coronary heart disease: <100 mg/dL: Optimal 100-129 mg/dL: Near or above optimal 130-159 mg/dL: Borderline high 160-189 mg/dL: High >190 mg/dL: Very High CARDIAC RISK RATIO 4.7 3.4 - 5.0 C [facility] Blood 11/23/2021 8:19 AM EST 11/23/2021 8:25 AM EST us Toni Piedra DO LAB BLOOD BKR ORDERABLES [place] Result [facility] [address] [place] [address] * CBC and differential (11/23/2021 8:19 AM EST) WBC 6.23 4.00 - 11.00 K/uL [facility] RBC 4.75 3.90 - 5.69 M/uL [facility] HGB 15.4 12.4 - 17.3 g/dL [facility] HCT 43.3 37.0 - 51.0 % [facility] PLT 223 140 - 430 K/uL [facility] MCV 91.2 78.0 - 97.0 fL [facility] MCH 32.4 25.0 - 33.0 pg [facility] MCHC 35.6 32.0 - 36.0 g/dL [facility] RDW 12.5 11.0 - 15.0 % [facility] MPV 9.9 8.4 - 12.8 fl [facility] NRBC 0.00 0 /100 WBCs [facility] ABSOLUTE NRBC 0.00 0 K/uL [facility] DIFF METHOD Auto [facility] NEUTS 57.1 43.0 - 75.0 % [facility] LYMPHS 27.6 18.2 - 47.4 % [facility] MONOS 10.4 4.00 - 11.00 % [facility] EOS 3.9 0.0 - 8.0 % [facility] BASOS 0.5 0.0 - 2.0 % [facility] Granulocytes, immature (%) 0.5 0.0 - 0.9 % [facility] ABSOLUTE NEUTS 3.56 1.80 - 7.70 K/uL [facility] ABSOLUTE LYMPHS 1.72 1.00 - 3.10 K/uL [facility] ABSOLUTE MONOS 0.65 0.20 - 0.80 K/uL [facility] ABSOLUTE EOS 0.24 0.00 - 0.80 K/uL [facility] ABSOLUTE BASOS 0.03 0.00 - 0.09 K/uL [facility] Granulocytes, immature 0.03 0.00 - 0.05 K/uL [facility] Blood 11/23/2021 8:19 AM EST 11/23/2021 8:25 AM EST us Toni Piedra DO LAB BLOOD BKR ORDERABLES Fin al Result [facility] [address] [place] [address] documented in this encounter Visit Diagnoses Diagnosis Hypertension, unspecified type- Primary Screening for prostate cancer Special screening for malignant neoplasm of prostate Routine general medical examination at a health care facility Pure hypercholesterolemia Non morbid obesity due to excess calories Benign prostatic hyperplasia, unspecified whether lower urinary tract symptoms present documented in this encounter Care Teams Auto Service Representative Relationship Specialty Start Date End Date Toni Piedra DO [address] [place] [address] PCP - General Internal Medicine 07/06/20 12/18/24 Benoit Burris MD [address] [place] [address] PCP - General Internal Medicine 12/19/24 documented as of this encounter Additional Source Comments The information contained in this document represents components of the legal health record. It is not the complete legal health record.[facility]
--- OUTSIDE RECORDS SUMMARY | 2025-11-11 08:12 | XMS_ITS | Clinical Summary ---
Author Organization [facility] Address [address] [place] [phone] Care Team Providers Care Material Distributor Name Role Phone Unavailable Primary Care Provider Unavailabl e Immunizations Immunization Administration Dates Next Due Tdap Vaccine (BOOSTRIX/ADACEL) 04/11/2022 Social History Tobacco Use Types Packs/Day Years Used Date Smoking Tobacco: Never Assessed Sex and Gender Information Value Date Recorded Sex Assigned at Not on file Legal Sex Male 1:22 AM EST Gender Identity Unable to obtain 12/30/2023 1:22 AM EST Sexual Orientation Not on file Plan of Treatment Not on file
--- OUTSIDE RECORDS SUMMARY | 2025-11-11 08:12 | XMS_ITS | Encounter Summary ---
Author Organization [facility] Address [address] [place] [phone] Phone Care Team Providers Care Cell Stripper Final Name Role Phone Toni Piedra DO Primary Care Provider [phone] Benoit Burris MD Primary Care Provid er Encounter Details Date Type Department Care Team (Late st Contact Info) Description 06/22/2024 Procedure Pass [facility] [address] [place] [address] Social History Tobacco Use Types Packs/Day Years [...] 10:00 AM EST Office Visit [facility] [address] Floor, [address] [place] [address] Jeannine Arambula, SUDHA 22 [facility], [address] [address] Simón Benjamin, SKETCH ARTIST [address] [place] [address] 06/26/2026 10:20 AM EDT Office Visit [facility] [address] [facility] 3rd Floor, [address] [place] [id number] Anjum Negrete MD 22 [facility], [address] [address] documented as of this encounter Visit Diagnoses Not on filedocumented in this encounter Care Teams Cell Stripper Final Relationship Specialty Start Date End Date Toni Piedra DO [address] [place] [id number] PCP - General Internal Medicine 07/06/20 12/18/24 Benoit Burris MD [address] [place] [id number] PCP - General Internal Medicine 12/19/24 documented as of this encounter Additional Source Comments The information contained in this document represents components of the legal health record. It is not the complete legal health record.[facility]
[2025-11-11 08:27] VITALS: BP 145/69; PULSE 59; TEMP 36.4; O2SAT 96; BMI 39.5
--- NOTE | 2025-11-11 08:27 | MHC.PC.OV ---
Vital Signs 11/11/25 08:27 Height 5 ft 8 in Weight 260 lb 0.4 oz BMI 39.5 BP 145/69 H Blood Pressure Location Lt brachial Pulse 59 Pulse Source Pulse Oximeter Temp 97.5 F Pulse Oximetry (%) 96 Intake Visit Reasons: 1 Month follow up Intake Note: no issues Allergies hydrochlorothiazide Allergy (Mild, Verified 11/11/25 08:54) Unknown Medication List - Last Reconciled 11/11/25 by Benoit Burris MD albuterol sulfate 90 mcg/actuation 1 puff inhalation Q4H PRN aspirin 81 mg PO DAILY atenolol 75 mg PO DAILY cholecalciferol (vitamin D3) (Vitamin D3) 25 mcg PO DAILY furosemide (Lasix) 40 mg PO DAILY 90 days hydralazine 10 mg PO BID 90 days losartan 100 mg PO DAILY smllhxyepudd-yhayhxmj-uyagnn 1 tab PO DAILY omega-3 fatty acids 2,000 mg PO DAILY rosuvastatin (Crestor) 10 mg PO DAILY Tobacco use date assessed: 09/06/25 Dental Screening Dental Screen Date: 11/11/25 Did you have a dental visit in the last 12 months?: Yes Did you have a dental problem in the last 6 months where you did not have access to dental care?: No Was dental information given to patient?: Patient has dentist HPI HPI Comments History of Present Illness Details History of Present Illness - The patient is a 75 year old male presenting for medication management and follow up on several chronic issues. - He reports getting used to a new medication regimen which includes a lower dose of furosemide and the addition of hydralazine. - His blood pressure is relatively controlled, fluctuating around 140/70 mmHg. - He has a longstanding lesion on his finger, which he describes as a polyp or cyst, that has caused a ridge in his nail. - He had a similar lesion removed by a surgeon in the past. - Regarding preventative care, his last colonoscopy was in 2020 and showed a very small polyp. - He inquires about the need for a repeat colonoscopy, as he is 75, and reports occasional constipation and subsequent hemorrhoids, which he associates with medication changes. - He manages the hemorrhoids with topical cream and stool softeners. - The patient reports difficulty with weight control. - He previously participated in a medical weight management program and lost 80 pounds and saw a certified nurse practitioner once but did not follow up. - He admits to not exercising despite owning a treadmill. - He has a history of osteoarthritis in his foot but canceled a recent podiatry appointment, stating his foot is fine. Social History - Nutrition: The patient reports difficulty with weight control, particularly during holidays due to social gatherings. - Exercise: The patient acknowledges he does not exercise but should, and he owns a treadmill. - Occupational History: The patient notes a history of standing on concrete for a long time, which he relates to his osteoarthritis. Results - Labs: Blood work from October 08 was reviewed and noted to be normal, including chemistry, kidney function, and liver function. - Procedures: A colonoscopy from 2020 revealed a very small, minimal polyp. [facility], [facility] Medical History Bronchitis Ventricular hypertrophy Morbid obesity with BMI of 40.0-44.9, adult Abscess, eyebrow Gout Tubular adenoma Chronic low back pain Osteochondritis Osteoarthritis BPH (benign prostatic hyperplasia) Mild hypercholesterolemia HTN (hypertension) Surgical History History of colonoscopy (~12/03/20) S/P repair of hydrocele History of cataract surgery Family History Father Congestive heart failure Mother Congestive heart failure Social History Housing: House Alcohol intake: current Alcohol intake frequency: holidays/special occasions only Patient Tobacco Use Status: Never used Tobacco Advance Directives Date on File: 11/15/17 service: No Current occupational status: employed 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 1. Little interest or pleasure in doing things: not at all 2. Feeling down, depressed, or hopeless: not at all 3. Trouble falling or staying asleep, or sleeping too much: not at all 4. Feeling tired or having little energy: not at all 5. Poor appetite or overeating: not at all 6. Feeling bad about yourself - or that you are a failure or have let yourself or your family down: not at all 7. Trouble concentrating on things, such as reading the newspaper or watching television: not at all 8. Moving or speaking so slowly that other people could have noticed. Or the opposite - being so fidgety or restless that you have been moving around a lot more than usual: not at all 9. Thoughts that you would be better off or of hurting yourself in some way: not at all Total score: 0 Depression Screening Interpretation: Negative Depression Screening Done: Yes 40909 - PHQ-9 Billing: Yes Source: Developed by Drs. Toni Caruso, Meghan Hill, Abdulaziz Avila and colleagues, with an educational albino from [employer]. Thrive Questionnaire Date Thrive assessed: 09/06/25 I am a: Patient What is your living situation today?: I have a steady place to live Within the past 12 months, did the food you bought not last and you didn't have the money to get more?: Never true Within the past 12 months, did you worry whether your food would run out before you got money to buy more?: Never true Do you have trouble paying for medicines?: No Do you have trouble getting transportation to medical appointments?: No Do you have trouble paying your heating and electricity bill?: No Do you have trouble taking care of your child, family member or friend?: No Do you have trouble with day-to-day activities such as bathing, preparing meals, shopping, managing finances, etc.?: No Are you currently unemployed and looking for a job?: No Are you interested in more education?: No Please select the resources that you would like help with: None THRIVE Score: 0 AUDIT C Alcohol Use Questionnaire (AUDIT-C) 1. How often do you have a drink containing alcohol?: Monthly or less 2. How many drinks containing alcohol do you have on a typical day when you are drinking?: 1 or 2 3. How often do you have six or more drinks on one occasion?: Never Total Score: 1 Score Reviewed/Action Taken: No ROGER-7 AMB Questionnaire ROGER-7 Date ROGER - 7 assessed: 09/06/25 Feeling nervous, anxious, or on edge: 0 = Not at all Not being able to stop or control worryin = Not at all Worrying too much about different things: 0 = Not at all Trouble relaxin = Not at all Being so restless that it is hard to sit still: 0 = Not at all Becoming easily annoyed or irritable: 0 = Not at all Feeling afraid as if something awful might happen: 0 = Not at all Total ROGER-7 score (0-4 normal; 5-9 mild; 10-14 moderate; 15-21 severe): 0 Source: Developed by Drs. Toni Caruso, Meghan Hill, Abdulaziz Avila and colleagues, with an educational albino from [employer]. ROGER-7 Assessment Billing ROGER-7 Assessment Tool: ROGER-7 Assessment 55129 Review of Systems Narrative Review of Systems - General: Reports no new concerns. - Integumentary: Reports a long-standing lesion on his finger with associated nail changes. - Gastrointestinal: Reports occasional constipation and hemorrhoids. - Musculoskeletal: Reports osteoarthritis. - Ophthalmologic: Reports his vision is okay. Physical exam (Primary Care) Vital Signs: Last Vital Signs Temp 97.5 F 11/11/25 08:27 Pulse 59 11/11/25 08:27 BP 145/69 H 11/11/25 08:27 Pulse Ox 96 11/11/25 08:27 BMI result Body Mass Index 39.5 Tobacco/Smoking Status: Tobacco use Status Tobacco use date assessed 09/06/25 11/11/25 08:31 Patient Tobacco Use Status Never used Tobacco 11/11/25 08:31 PHQ-9: PHQ-9 Score PHQ-9: Total score 0 11/11/25 08:32 Depression Screening Interpretation: Negative Thrive Assessment: Date of Thrive Assessment Date Thrive assessed 09/06/25 11/11/25 08:31 Narrative Physical Exam General: Appearance normal, both eyes and all related structures Nutritional Appearance: Difficulty maintaining weight control Orientation/consciousness: Patient oriented x3 Limitations: No limitations Head: Normal to inspection Neck: Normal visual inspection Chest: Normal palpation of entire chest wall Respiratory: Normal respiratory effort Neurology: Patient oriented x3 Office Procedures Flu Questionnaire Does the patient have a severe egg allergy?: No Does the patient have severe life threatening allergies?: No Does the patient have a fever or illness today?: No Has the patient ever had Guillain-Geraldine Syndrome?: No Has the patient ever had any past reaction to a flu shot?: No Immunizations Fluarix [id number] (PF) 45 mcg (15 mcg x 3)/0.5 mL IM syringe Performing Provider: Benoit Burris MD Performing Location: [facility] Documented (not given) by: Kia Sharma on 11/11/25 08:36 Reason Not Given: Received Previously Coding Level of Care Code Est Pt Level 4 (22460) Add On Problem Visit Only Diagnoses Constipation K59.00 Additional Codes ROGER-7 Assessment Billing - ROGER-7 Assessment Tool: ROGER-7 Assessment 69994 ([id number]) PHQ-9 - 32725 - PHQ-9 Billing: Yes ([id number]) Assessment & Plan Assessment & Plan (1) Constipation: Code(s): K59.00 - Constipation, unspecified Plan Plan - Will place a referral to a general surgeon for evaluation and possible removal of the finger lesion. - Will place a referral to Dr. Pena for consideration of a repeat colonoscopy and evaluation of his constipation and hemorrhoids. - Continue current medications, including aspirin, atenolol 75 mg daily, vitamin D, furosemide 40 mg daily, hydralazine twice daily, losartan 100 mg daily, and rosuvastatin 10 mg daily. - Recommended lifestyle modifications, including incorporating exercise and dietary changes to aid in weight loss and improve blood pressure control. - Will cancel the patient's upcoming appointment on December 03 and schedule a follow-up visit in 6 months. Discussion Notes I reviewed the patient's current medication regimen and his report of reasonably well-controlled hypertension, although noting it could improve. We discussed the lesion on his finger, and I informed him I would refer him to a general surgeon for evaluation and potential removal; he was agreeable to this plan. We discussed colorectal cancer screening, as he is 75. Given his 2020 colonoscopy results of a minimal polyp and his current complaints of constipation and hemorrhoids, the patient preferred a referral to a specialist over a Cologuard test, so I initiated a referral to Dr. Pena. I informed him that his recent blood work from October 08 was all fine. I emphasized that paying more attention to diet and incorporating exercise would help with weight loss and further improve his blood pressure. We agreed to schedule a follow-up appointment in six months and cancel his previously scheduled December 03 appointment. Patient Instructions - Continue taking your current medications as prescribed, which include aspirin, atenolol, vitamin D, Lasix, hydralazine, losartan, and Crestor. - You will receive a call from a surgeon's office to schedule an appointment for the growth on your finger. - You will also get a call from Dr. Pena's office for a follow-up on your colon health. - Try to incorporate regular exercise, such as using your treadmill, into your routine. - Be mindful of your diet to help manage your weight and blood pressure. - We have canceled your appointment for December 03 and will schedule a new one for you in six months. Orders: Orders Influenza [id number] Immunization Today Z23 - Encounter for immunization Referrals General Surgery Referral D21.9 - Benign neoplasm of connective and other soft tissue, unspecified Gastroenterology Referral K59.00 - Constipation, unspecified
== END 2025-11-11 08:57 | disposition home or self-care (01) ==
LOC: HO.HMCSH 08:09
PROVIDERS: PCP Internal Medicine; Visit Provider Internal Medicine
DX: Z23 Encounter for immunization (principal); K59.00 Constipation, unspecified

== ENCOUNTER → 2025-11-11 08:09 | Outpatient (BNVA) | payer MEDICARE, SELFPAY | PROVIDERS: PCP Internal Medicine; Visit Provider Internal Medicine | DX: K59.00 Constipation, unspecified (principal); D21.9 Benign neoplasm of connective and other soft tissue, unspecified; E66.01 Morbid (severe) obesity due to excess calories; Z13.31 Encounter for screening for depression; Z13.39 Encounter for screening examination for other mental health and behavioral disorders; Z28.89 Immunization not carried out for other reason | CPT/HCPCS: 90471; 96127; 99212 ==